=== PATIENT | female | born 1975 | race Caucasian/White ===

== ENCOUNTER 2016-06-11 19:50 | Inpatient (IN) | payer MEDICARE ==
[~2016-06-11] VITALS: Ht 165.1 cm; Wt 99.8 kg
[~2016-06-11 19:50] MED LIST: ACHD5005 PO; AMIT10TA6 PO; AMOX-358 PO; ATOR40TA PO; BACL10TA PO; CEPH500C PO; CLCX100C PO; CLON0.5T3 PO; DOXY100C2 PO; DULO60CA6 PO; ESTR0.455 PO; FLUC100T PO; GABA-488 PO; HYDR-2890 PO; HYDR-3720 PO; LEVO500T2 PO; LEVO500T69 PO; METH4TAB PO; MILN50TA6 PO; NAPR-243 PO; NAPR-689 PO; NF-ESOM40C PO; NITR-65 PO; NITR100C44 PO; ONDA8TAB13 PO; ONDA8TAB9 PO; OXYC-465 PO; OXYC30TA76 PO; PANT40TA PO; PHEN-640 PO; PHEN200T27 PO; PHEN37.582; POLY119P PO; PREG75CA PO; TIZA4TAB3 PO; TOPI100T PO; TRAM50TA2 PO; TRM50T PO; ZLP10T PO; [UNRECOGNIZED DRUG - CODE] PO
--- OUTSIDE RECORDS SUMMARY | 2016-06-11 19:56 | XMS REPORT | Continuity of Care Document ---
Author Author [facility] Organization [facility] Address Unknown Phone Unavailable Care Team Providers Care Currency Counter Name Role Phone William Mayo PCP [phone] Source Comments Some departments are not documenting in the electronic medical record. If you do not see the information that you expected, contact Release of Information in the Health Information Management department at [phone] for further assistance in locating additional records.[facility] Active Allergies and Adverse Reactions Allergen Noted Date Severity Reactions Comments Adhesive 07/20/2013 RASH Atarax 07/20/2013 UNKNOWN Morphine 07/20/2013 UNKNOWN Nucynta 08/03/2013 RASH, SEE COMMENTS rash of the arms and swelling of the lips Sulfa (Sulfonamide 10/11/2009 High EDEMA Lip swelling Antibiotics) Current Medications Prescription Sig. Disp. Refills Start End Date Status Date topiramate (TOPAMAX) 100 Take 100 mg by mouth Active mg tablet Twice Daily. duloxetine DR (CYMBALTA) Take 60 mg by mouth Twice Active 60 mg capsule Daily. esomeprazole DR,+, Take 40 mg by mouth Every Active (NEXIUM) 40 mg capsule Morning. naproxen (NAPROSYN) 500 Take 500 mg by mouth Active mg tablet twice daily with meals. clonazePAM (KLONOPIN) 0.5 Take 0.5 mg by mouth Active mg tablet daily as needed. rarely terbinafine (LAMISIL) 250 Take 250 mg by mouth Active mg tablet daily. fentaNYL (DURAGESIC) 25 Apply 1 Patch to top of Active mcg/hr patch skin as directed every 72 hours oxyCODONE-acetaminophen Take 1 Tab by mouth every Active (PERCOCET; ENDOCET) 4 hours as needed 10-325 mg tablet Esterified Estrogens Take 0.5 Tabs by mouth Active (MENEST) 1.25 mg tab daily. tiZANidine (ZANAFLEX) 4 Take 4 mg by mouth three Active mg tablet times daily. ibuprofen (MOTRIN) 800 mg 1 Tab every 8 hours as 90 Tab 1 01/11/20 Active tablet needed for Pain. 16 gabapentin (NEURONTIN) TAKE ONE TABLET BY MOUTH 90 Tab 5 04/24/19 Active 600 mg tablet THREE TIMES A DAY FOR 17 NEUROPATHIC PAIN Active Problems Problem Noted Date Tinea corporis 08/03/2013 Hypertension 07/20/2013 Obesity 07/20/2013 Fibromyalgia 07/20/2013 Right leg swelling 07/20/2013 Overview: Rt. buttock and ovfrret-aalquoqq-hgfiht thigh Right leg pain 07/20/2013 Overview: Rt. 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 Memory loss 07/20/2013 Most Recent Encounters Date Type Specialty Providers Description 04/24/2016 Refill Anesthesia Pain Liliya Montelongo APRN Social History Tobacco Use Types Packs/Day Years Used Date Current Every Day Smoker Cigarettes 1 10 Smokeless Tobacco: Never Used Tobacco Cessation: Ready to Quit: No Comments: Alcohol Use Drinks/Week oz/Week Comments Yes 0.0 monthly Last Filed Vital Signs Vital Sign Reading Time Taken Blood Pressure 133/90 10/02/2015 1:18 PM CDT Pulse 92 10/02/2015 1:18 PM CDT Temperature 36.7 C (98.1 F) 07/20/2015 10:59 AM CDT Respiratory Rate 16 10/02/2015 1:18 PM CDT Height 1.626 m (5' 4") 10/02/2015 1:18 PM CDT Weight 105.235 kg (232 lb) 10/02/2015 1:18 PM CDT Body Mass Index 39.8 10/02/2015 1:18 PM CDT Oxygen Saturation 95% 10/02/2015 1:18 PM CDT Plan of Care Health Maintenance Due Date Last Done Comments Physical (Comprehensive) 11/15/1982 Exam Pertussis Vaccine 11/15/1986 Tetanus Vaccine 11/15/1992 Cervical Cancer Screening 11/15/1996 Breast Cancer Screening 2015 Influenza Vaccine 12/13/2015 Results from Last 3 Months Not on file
[2016-06-11] MEDS ORDERED: VANCOMYCIN IV ADD-VANTAGE 1,000 MG in SODIUM CHLORIDE (ADD-VANTAGE) 250 ML IV ONE (20:00)
[2016-06-11] MEDS ORDERED: NAPR500T3 PO (20:03)
[2016-06-11] MEDS ORDERED: ESOM40CA52 PO (20:03)
--- NOTE | 2016-06-11 20:12 | ED Integumentary General ---
General Chief Complaint: Skin/Wound Problems Stated Complaint: INFECTION IN FACE Nursing Triage Note: MULTIPLE OPEN WOUNDS TO FACE, RIGHT LOWER LIP SWELLING Source: patient Exam Limitations: no limitations History of Present Illness Time seen by provider: 20:10 Initial Comments To ER with right lower jaw are redness and swelling since earlier this morning. She denies fevers. Primary care is Dr. Mayo. Timing/Duration: this morning Severity: moderate Possible Cause: no cause identified Allergies and Home Medications Allergies Coded Allergies: Sulfa (Sulfonamide Antibiotics) (Unverified Allergy, Unknown, 12/05/14) hydroxyzine (Unverified Adverse Reaction, Intermediate, 10/10/13) morphine (Unverified Adverse Reaction, Intermediate, 10/10/13) Home Medications Clonazepam 0.5 Mg Tablet #90 0.5 MG PO HS (Reported) Duloxetine Hcl 60 Mg Capsule.dr 60 MG PO BID (Reported) Esomeprazole Magnesium 40 Mg Capsule.dr #30 1 CAP PO UD (Reported) Estrogens,Esterified 1.25 Mg Tablet #15 0.5 TAB PO DAILY (Reported) Gabapentin 300 Mg Capsule 600 MG PO BID (Reported) Naproxen 500 Mg Tablet #60 1 TAB PO BID (Reported) Ondansetron 8 Mg Tab.rapdis #10 8 MG PO Q6H PRN PRN NAUSEA Prescribed by: JUAN MIGUEL LAGUNA on 07/07/151947 Oxycodone Hcl 30 Mg Tab.sr.12h #60 1 TAB PO BID (Reported) Oxycodone Hcl/Acetaminophen 1 Each Tablet 1 EACH PO PRN PRN PRN PAIN (Reported) Pantoprazole Sodium 40 Mg Tablet.dr #30 1 TAB PO DAILY (Reported) Tizanidine HCl 4 Mg Tablet 8 MG PO HS (Reported) Topiramate 100 Mg Tab 100 MG PO BID (Reported) Constitutional: see HPI EENTM: see HPI Respiratory: no symptoms reported Cardiovascular: no symptoms reported Genitourinary: no symptoms reported Musculoskeletal: no symptoms reported Skin: see HPI Psychiatric/Neurological: No Symptoms Reported Endocrine: No Symptoms Reported Past Omhmqsp-Kxrvet-Rlbvgx Hx Patient Social History Alcohol Use: Denies Use Recreational Drug Use: No Smoking Status: Current Everyday Smoker 2nd Hand Smoke Exposure: Yes Recent Foreign Travel: No Contact w/Someone Who Travel: No Recent Infectious Disease Expo: No Recent Hopitalizations: No Immunizations Up To Date Tetanus Booster (TDap): Less than 5yrs Date of Influenza Vaccine: Feb 22, 2014 Seasonal Allergies Seasonal Allergies: No Surgeries HX Surgeries: Yes (ERCP, COLONOSCOPY, LIPOMA,OVARIAN CYST REMOVAL X 5, LEFT HAND, RIGHT KNEE,) Surgeries: Appendectomy, Gallbladder, Hysterectomy, Orthopedic Respiratory Hx Respiratory Disorders: No Cardiovascular Hx Cardiac Disorders: Yes Cardiac Disorders: High Cholesterol Neurological Hx Neurological Disorders: Yes Neurological Disorders: Concussion, Neuropathy, 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 Injury Reproductive System : No Hx Reproductive Disorders: Yes Female Reproductive Disorders: Ovarian Cyst [employer] History: Hysterectomy Genitourinary Hx Genitourinary Disorders: Yes Genitourinary Disorders: UTI-Chronic Gastrointestinal Hx Gastrointestinal Disorders: Yes Gastrointestinal Disorders: Gastroesophageal Reflux Musculoskeletal Hx Musculoskeletal Disorders: Yes (CHRONIC RIGHT LEG SCIATICA, CHRONIC RIGHT KNEE PAIN) Musculoskeletal Disorders: Degenerate Disk Disease, Arthritis, Fibromyalgia, Rheumatoid Arthritis, Chronic Back Pain Endocrine Hx Endocrine Disorders: Yes (OBESITY) HEENT HX ENT Disorders: No Cancer Hx Cancer: Yes Cancer: Cervical Psychosocial Hx Psychiatric Problems: Yes Behavioral Health Disorders: Anxiety, Depression Integumentary HX Skin/Integumentary Disorder: No Blood Transfusions Hx Blood Disorders: No Adverse Reaction to a Blood Tr: No Family Medical History Significant Family History: No Pertinent Family Hx Physical Exam Vital Signs Vital Sign - Last 12Hours 06/11/16 20:04 Temp 98.8 Pulse 104 Resp 18 B/P 118/85 Pulse Ox 98 O2 Delivery Room Air Capillary Refill : Less Than 3 Seconds General Appearance: WD/WN no apparent distress HEENT: PERRL/EOMI normal ENT inspection other (there is significant swelling of the mandible on the right side including half of the bottom lip. There is no fluctuance or buccal abscess palpable. She does have an area to the exterior surface of the face that appears to be impetigo as well as multiple sores on her face) Neck: non-tender full range of motion Cardiovascular: regular rate, rhythm no murmur Respiratory: no respiratory distress no accessory muscle use Gastrointestinal: non tender soft Neurologic/Psychiatric: alert normal mood/affect oriented x 3 Skin: normal color warm/dry other (multiple sores all over her face which she states just started yesterday (I do not believe this to be true)) Skin Problem Location: face Skin Problem Character: erythema, other (There is no drainage. There is an area that is indurated and with honey-colored crusting to the right mandible.) Progress/Results/Core Measures Results/Orders Lab Results Laboratory Tests Test 06/11/16 20:05 06/11/16 20:10 Range/Units Ur Tricyclic Antidepressants Screen NEGATIVE NEGATIVE Urine Amphetamines Screen POSITIVE H NEGATIVE Urine Bacteria LARGE H /HPF Urine Barbiturates Screen NEGATIVE NEGATIVE Urine Benzodiazepines Screen POSITIVE H NEGATIVE Urine Bilirubin 2+ H NEGATIVE Urine Cannabinoids Screen NEGATIVE NEGATIVE Urine Casts NONE /LPF Urine Clarity SLIGHTLY CLOUDY Urine Cocaine Screen NEGATIVE NEGATIVE Urine Color AMINAH H Urine Crystals NONE /LPF Urine Culture Indicated YES Urine Glucose (UA) NEGATIVE NEGATIVE Urine Ketones 1+ H NEGATIVE Urine Leukocyte Esterase 2+ H NEGATIVE Urine Methadone Screen NEGATIVE NEGATIVE Urine Methamphetamines Screen POSITIVE H NEGATIVE Urine Mucus LARGE H /LPF Urine Nitrite POSITIVE H NEGATIVE Urine Opiates Screen NEGATIVE NEGATIVE Urine Oxycodone Screen NEGATIVE NEGATIVE Urine Phencyclidine Screen NEGATIVE NEGATIVE Urine Propoxyphene Screen NEGATIVE NEGATIVE Urine Protein 1+ H NEGATIVE Urine RBC 0-2 /HPF Urine RBC (Auto) 1+ H NEGATIVE Urine Specific Calvin 1.020 1.016-1.022 Urine Squamous Epithelial Cells 25-50 H /HPF Urine Urobilinogen 4 H NORMAL MG/DL Urine WBC 10-25 H /HPF Urine pH 6 5-9 Alanine Aminotransferase (ALT/SGPT) 10 0-55 U/L Albumin 3.8 3.2-4.5 G/DL Alkaline Phosphatase 79 40-136 U/L Anion Gap 12 5-14 MMOL/L Aspartate Amino Transf (AST/SGOT) 7 5-34 U/L BUN/Creatinine Ratio 14 Band Neutrophils 2 % Basophils # (Auto) 0.0 0.0-0.1 10^3/uL Basophils % (Manual) 1 % Basophils (%) (Auto) 0 0-10 % Blood Morphology Comment NORMAL Blood Urea Nitrogen 12 7-18 MG/DL Calcium Level 9.1 8.5-10.1 MG/DL Carbon Dioxide Level 17 L 21-32 MMOL/L Chloride Level 110 H 98-107 MMOL/L Creatinine 0.83 0.60-1.30 MG/DL Eosinophils # (Auto) 0.2 0.0-0.3 10^3/uL Eosinophils % (Manual) 0 % Eosinophils (%) (Auto) 1 0-10 % Estimat Glomerular Filtration Rate > 60 Glucose Level 186 H 70-105 MG/DL Hematocrit 43 35-52 % Hemoglobin 14.7 11.5-16.0 G/DL Lactic Acid Level 2.1 *H 0.5-2.0 MMOL/L Lymphocytes # (Auto) 4.9 H 1.0-4.0 X 10^3 Lymphocytes % (Manual) 40 % Lymphocytes (%) (Auto) 30 12-44 % Mean Corpuscular Hemoglobin 30 25-34 PG Mean Corpuscular Hemoglobin Concent 34 32-36 G/DL Mean Corpuscular Volume 89 80-99 FL Mean Platelet Volume 10.1 7.4-10.4 FL Monocytes # (Auto) 0.8 0.0-1.0 X 10^3 Monocytes % (Manual) 2 % Monocytes (%) (Auto) 5 0-12 % Neutrophils # (Auto) 10.1 H 1.8-7.8 X 10^3 Neutrophils % (Manual) 55 % Neutrophils (%) (Auto) 63 42-75 % Platelet Count 270 130-400 10^3/uL Potassium Level 3.8 3.6-5.0 MMOL/L Red Blood Count 4.89 4.35-5.85 10^6/uL Red Cell Distribution Width 13.6 10.0-14.5 % Sodium Level 139 135-145 MMOL/L Total Bilirubin 0.4 0.1-1.0 MG/DL Total Protein 6.8 6.4-8.2 G/DL White Blood Count 16.0 H 4.3-11.0 10^3/uL My Orders Orders-LEEANNE TUBBS CYLINDER LOADER Cbc With Automated Diff (06/11/16 19:59) Comprehensive Metabolic Panel (06/11/16 19:59) Blood Culture (06/11/16 19:59) Saline Lock/Iv-Start (06/11/16 19:59) Ua Culture If Indicated (06/11/16 19:59) Drug Screen Stat (Urine) (06/11/16 19:59) Lactic Acid Analyzer (06/11/16 19:59) Vancomycin Iv Add-[place] (Vancomycin Iv (06/11/16 20:00) Ct Maxillofacial W (06/11/16 19:59) Manual Differential (06/11/16 20:10) Urine Culture (06/11/16 20:05) Ns Iv 1000 Ml (Sodium Chloride 0.9%) (06/11/16 20:45) Iohexol Injection (Omnipaque 350 Mg/Ml 1 (06/11/16 20:45) Ns (Ivpb) (Sodium Chloride 0.9% Ivpb Bag (06/11/16 20:45) Medications Given in ED Current Medications Medications Dose Ordered Sig/Michela Route Start Time Stop Time Status Last Admin Dose Admin Iohexol 100 ml ONCE ONCE IV 06/11/16 20:45 06/11/16 20:46 DC 06/11/16 20:47 100 ML Sodium Chloride 100 ml ONCE ONCE IV 06/11/16 20:45 06/11/16 20:46 DC 06/11/16 20:47 100 ML Vancomycin HCl/ Sodium Chloride 250 ml @ 250 mls/hr ONCE ONCE IV 06/11/16 20:00 06/11/16 20:59 DC 06/11/16 21:00 250 MLS/HR Vital Signs/I&O Vital Sign - Last 12Hours 06/11/16 20:04 Temp 98.8 Pulse 104 Resp 18 B/P 118/85 Pulse Ox 98 O2 Delivery Room Air Blood Pressure Mean: 96 Departure Communication Time/Spoke to Admitting Phy: 21:17 Communication I discussed the case with Dr. Poe. We will admit. Progress Notes 2116-I discussed the plan of care with the patient. She agrees to be admitted. She states that she has been tapering off of her fentanyl and Percocet 10/325 ) over the past month she has been off of them she states) using coloring books and distraction methods now that she has a spinal stimulator. I also discussed her methamphetamine use with her given the sores and positive drug screen. She assures me that she does not use methamphetamine, but her ranitidine causes a false positive. Impression Impression: Primary Impression: Facial cellulitis Additional Impressions: Sepsis Urinary tract infection Methamphetamine use Disposition: ADMITTED INPATIENT Condition: Stable Decision to Admit Reason: Admit from ER (General) Decision to Admit/Date: Jun 11, 2016 Time/Decision to Admit Time: 20:43 Departure-Patient Inst. Referrals: CLAUDY MAYO MD (PCP/Family) Primary Care Physician LEEANNE TUBBS APRN Jun 11, 2016 20:12
[2016-06-11 20:26] LABS: KETONES,URINE 1+ (NEGATIVE); LEUKOCYTE ESTERASE ,URINE 2+ (NEGATIVE); NITRITE,URINE POSITIVE (NEGATIVE); PH,URINE 6 (5-9); PROTEIN,URINE 1+ (NEGATIVE); UROBILINOGEN,URINE 4 MG/DL (NORMAL)
[2016-06-11 20:26] LABS: BASOPHILS % (AUTO) 0 % (0-10); EOSINOPHILS # (AUTO) 0.2 10^3/uL (0.0-0.3); EOSINOPHILS % (AUTO) 1 % (0-10); LYMPHOCYTES # (AUTO) 4.9 X 10^3 (1.0-4.0); LYMPHOCYTES % (AUTO) 30 % (12-44); MEAN CORPUSCULAR HEMOGLOBIN 30 PG (25-34); MEAN CORPUSCULAR HGB CONC 34 G/DL (32-36); MEAN CORPUSCULAR VOLUME 89 FL (80-99); MEAN PLATELET VOLUME 10.1 FL (7.4-10.4); MONOCYTES # (AUTO) 0.8 X 10^3 (0.0-1.0); MONOCYTES % (AUTO) 5 % (0-12); NEUTROPHILS # (AUTO) 10.1 X 10^3 (1.8-7.8); NEUTROPHILS % (AUTO) 63 % (42-75); PLATELET COUNT 270 10^3/uL (130-400); RED BLOOD COUNT 4.89 10^6/uL (4.35-5.85); RED CELL DISTRIBUTION WIDTH 13.6 % (10.0-14.5)
[2016-06-11 20:35] LABS: SQUAMOUS EPITHELIAL CELL,UR 25-50 /HPF
[2016-06-11 20:41] LABS: BAND NEUTROPHILS 2 %; BASOPHILS % (MANUAL) 1 %; EOSINOPHILS % (MANUAL) 0 %; LYMPHOCYTES % (MANUAL) 40 %; NEUTROPHILS % (MANUAL) 55 %
[2016-06-11] MEDS ORDERED: NS 100 ML (IVPB) BAG IV ONE (20:45)
[2016-06-11] MEDS ORDERED: NS IV 1000 ML 1,000 ML IV SCH (20:45)
[2016-06-11] MEDS ORDERED: IOHEXOL 350 MG/ML 100 ML (OMNIPAQUE 350) VIAL IV ONE (20:45)
[2016-06-11 20:57] LABS: ALANINE AMINOTRANSFERASE 10 U/L (0-55); ALBUMIN 3.8 G/DL (3.2-4.5); ANION GAP 12 MMOL/L (5-14); ASPARTATE AMINO TRANSFERASE 7 U/L (5-34); BILIRUBIN,TOTAL 0.4 MG/DL (0.1-1.0); BLOOD UREA NITROGEN 12 MG/DL (7-18); BUN/CREATININE RATIO 14; CALCIUM 9.1 MG/DL (8.5-10.1); CARBON DIOXIDE 17 MMOL/L (21-32); CHLORIDE 110 MMOL/L (98-107); CREATININE SERUM 0.83 MG/DL (0.60-1.30); GFR ESTIMATED > 60; GLUCOSE 186 MG/DL (70-105); POTASSIUM 3.8 MMOL/L (3.6-5.0); SODIUM 139 MMOL/L (135-145); TOTAL PROTEIN 6.8 G/DL (6.4-8.2)
--- NOTE | 2016-06-11 21:08 | Diagnostic Imaging Report ---
PROCEDURE: CT maxillofacial with contrast. TECHNIQUE: After intravenous administration of contrast, axial images were obtained through the face and reformatted into coronal and sagittal planes. INDICATION: 40-year-old female presents with face swelling, right side of mandible, with pustules on the entire face. FINDINGS: The mandible and maxilla are intact. Nasal septum is midline. Sinuses appear well pneumatized. Orbits, including both globes, retro-orbital, extraconal, conal and intraconal spaces are normal. The zygomatic arches are symmetric. The pterygoid plates are normal. The mastoid air cells appear well pneumatized. Beam hardening artifact from the patient's large body habitus does limit assessment. There is cervical lymphadenopathy. There is diffuse stranding in the right face and right cheek subcutaneous soft tissues but no discrete abscess or phlegmon is seen. The parotid gland and submandibular gland show normal attenuation. IMPRESSION: 1. Unremarkable CT facial bones. 2. Probable cellulitis of the right face and cheek with no discrete abscess seen at this time. Dictated by: Dictated on workstation # [id number]
[2016-06-11 21:40] VITALS: BP 105/72
[2016-06-11] MEDS ORDERED: ACETAMINOPHEN 325 MG TABLET/CAPLET (TYLENOL) PO PRN (23:15)
[2016-06-11] MEDS ORDERED: PIPERACILLIN/TAZOBACTAM 4.5 GM/NS100 ML IVPB IV ONE ×2 (23:15)
[2016-06-11] MEDS: NS IV 1000 ML 1,000 ML IV SCH (23:15)
[2016-06-12 00:30] VITALS: BP 118/67
[2016-06-12] MEDS ORDERED: ESTR1TAB24 PO (02:44)
[2016-06-12] MEDS ORDERED: CLON0.5T25 PO (02:45)
[2016-06-12] MEDS ORDERED: ASPI-992 PO (02:51)
[2016-06-12] MEDS ORDERED: RANI-515 PO (02:51)
[2016-06-12] MEDS ORDERED: DIPH25CA6 PO (02:51)
[2016-06-12] MEDS ORDERED: MIRT15TA6 PO (02:51)
[2016-06-12] MEDS: PIPERACILLIN/TAZOBACTAM 4.5 GM/NS100 ML IVPB IV SCH ×6 (04:18→20:47)
[2016-06-12 04:42] LABS: BASOPHILS % (AUTO) 0 % (0-10); EOSINOPHILS # (AUTO) 0.3 10^3/uL (0.0-0.3); EOSINOPHILS % (AUTO) 2 % (0-10); LYMPHOCYTES # (AUTO) 5.3 X 10^3 (1.0-4.0); LYMPHOCYTES % (AUTO) 38 % (12-44); MEAN CORPUSCULAR HEMOGLOBIN 30 PG (25-34); MEAN CORPUSCULAR HGB CONC 34 G/DL (32-36); MEAN CORPUSCULAR VOLUME 90 FL (80-99); MEAN PLATELET VOLUME 10.3 FL (7.4-10.4); MONOCYTES % (AUTO) 8 % (0-12); NEUTROPHILS # (AUTO) 7.1 X 10^3 (1.8-7.8); NEUTROPHILS % (AUTO) 52 % (42-75); PLATELET COUNT 224 10^3/uL (130-400); RED BLOOD COUNT 4.17 10^6/uL (4.35-5.85); RED CELL DISTRIBUTION WIDTH 13.6 % (10.0-14.5); WHITE BLOOD COUNT 13.8 10^3/uL (4.3-11.0)
[2016-06-12] MEDS: NS IV 1000 ML 1,000 ML IV SCH ×3 (06:30→18:00)
[2016-06-12] MEDS ORDERED: FLU TRIvalent (5 YOA+) 2016-17 (AFLURIA) 0.5 ML IM ONE (07:00)
[2016-06-12 08:15] VITALS: BP 124/86
[2016-06-12] MEDS ORDERED: CATHETER FLUSH 10 ML SYR IV PRN (08:30)
[2016-06-12] MEDS ORDERED: VANCOMYCIN 1 GM/NS 250 ML IVPB IV SCH ×2 (09:00)
[2016-06-12] MEDS ORDERED: GABA600T2 PO (09:01)
[2016-06-12] MEDS ORDERED: CLON0.5T3 PO (09:01)
[2016-06-12] MEDS: VANCOMYCIN INJECTION 1,500 MG in NS IV 500 ML 500 ML IV SCH ×2 (09:26→20:47)
[2016-06-12] MEDS: HYDROcodone/APAP 10 MG/325 MG (LORTAB) TAB PO PRN ×2 (09:26→18:44)
[2016-06-12 10:32] LABS: BILIRUBIN,URINE 2+ (NEGATIVE)
--- NOTE | 2016-06-12 10:46 | History & Physical-Hospitalist ---
HPI History of Present Illness: HPI/Chief Complaint CC: Right facial swelling HPI: This is a 40yoWF pt of Dr. Mayo'michelle that presented to ER with right facial swelling. CT scan revealed no abscess formation but severe cellulitis. Pt is on chronic pain meds and denies any current pain. Pt has been placed on Vanc and Zosyn empirically but she reports that she feels a knot on her right lower gum so will speak with Dr. Aguilar to evaluate the need for I&D. drip box tender: RN states that pt is stable for move to 4th floor. Patient Interview: Pt states that her pain is under control, but is increased if she speaks too much. Physical exam stable. Pt states that her swelling is reduced, but pt states that the pressure increases if she lays on her side. Pt states that the sores on her face appeared with pts other symptoms. Pt denies using methamphetamine. Dr. Wallace informs pt that it was found in pt' s bloodwork, and pt continues to deny meth use, stating that lab findings are likely due to Zantac. Scribed by Hood Galarza under the direct supervision of Dr. Wallace. Source: patient Exam Limitations: no limitations Date Seen 06/12/16 Attending Physician Melissa Wallace Douglas K MD Referring Physician Date of Admission Jun 11, 2016 at 21:22 Home Medications & Allergies Home Medications Reviewed patient Home Medication Reconciliation Form Allergies Coded Allergies: Sulfa (Sulfonamide Antibiotics) (Unverified Allergy, Unknown, 12/05/14) hydroxyzine (Unverified Adverse Reaction, Intermediate, 10/10/13) morphine (Unverified Adverse Reaction, Intermediate, 10/10/13) Past Shjvyli-Elyyjs-Ibvfir Hx Patient Social History Marrital Status: single Employed/Student: unemployed Alcohol Use: Denies Use Recreational Drug Use: No Smoking Status: Current Everyday Smoker 2nd Hand Smoke Exposure: Yes Physical Abuse Screen: No Sexual Abuse: No Recent Foreign Travel: No Contact w/other who traveled: No Recent Hopitalizations: No Recent Infectious Disease Expo: No Immunizations Up To Date Tetanus Booster (TDap): Less than 5yrs Date of Influenza Vaccine: Feb 22, 2014 Seasonal Allergies Seasonal Allergies: No Surgeries HX Surgeries: Yes (ERCP, COLONOSCOPY, LIPOMA,OVARIAN CYST REMOVAL X 5, LEFT HAND, RIGHT KNEE,) Surgeries: Appendectomy, Gallbladder, Hysterectomy, Orthopedic Respiratory Hx Respiratory Disorders: No Cardiovascular Hx Cardiovascular Disorders: Yes Cardiac Disorders: High Cholesterol Neurological Hx Neurological Disorders: Yes Neurological Disorders: Concussion, Neuropathy, 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 Injury Reproductive System : No Hx Reproductive Disorders: Yes Female Reproductive Disorders: Ovarian Cyst Genitourinary Hx Genitourinary Disorders: Yes Genitourinary Disorders: UTI-Chronic Gastrointestinal Hx Gastrointestinal Disorders: Yes Gastrointestinal Disorders: Gastroesophageal Reflux Musculoskeletal Hx Musculoskeletal Disorders: Yes (CHRONIC RIGHT LEG SCIATICA, CHRONIC RIGHT KNEE PAIN) Musculoskeletal Disorders: Degenerate Disk Disease, Arthritis, Fibromyalgia, Rheumatoid Arthritis, Chronic Back Pain Endocrine Hx Endocrine Disorders: Yes (OBESITY) HEENT HX ENT Disorders: No Cancer Hx Cancer: Yes Cancer: Cervical Psychosocial Hx Psychiatric Problems: Yes Behavioral Health Disorders: Anxiety, Depression Integumentary HX Skin/Integumentary Disorder: No Blood Transfusions Hx Blood Disorders: No Adverse Reaction to a Blood Tr: No Family Medical History Significant Family History: No Pertinent Family Hx Family Hx: Alcoholism 19 FATHER Asthma 19 FATHER Completed stroke 19 FATHER 19 MOTHER Diabetes mellitus 19 MOTHER FH: emphysema 19 FATHER Hypertension 19 FATHER Myocardial infarction 19 FATHER (STENTS) Review of Systems Constitutional: see HPI fever malaise weakness EENTM: mouth pain mouth swelling Respiratory: no symptoms reported Cardiovascular: no symptoms reported Gastrointestinal: no symptoms reported Genitourinary: no symptoms reported Musculoskeletal: no symptoms reported Skin: see HPI Psychiatric/Neurological: No Symptoms Reported All Other Systems Reviewed Negative Unless Noted: Yes Physical Exam Physical Exam Vital Signs Vital Sign - Last 12Hours 06/11/16 20:04 Temp 98.8 Pulse 104 Resp 18 B/P 118/85 Pulse Ox 98 O2 Delivery Room Air Capillary Refill : Less Than 3 Seconds General Appearance: No Apparent Distress WD/WN Chronically ill Other ( appearing older than stated age, multiple scabs on face) Eyes: Bilateral Eye Normal Inspection, Bilateral Eye PERRL HEENT: PERRL/EOMI Normal ENT Inspection Pharynx Normal Neck: Full Range of Motion Normal Inspection Non Tender Supple Carotid Bruit Respiratory: Chest Non Tender Lungs Clear Normal Breath Sounds No Accessory Muscle Use No Respiratory Distress Cardiovascular: Regular Rate, Rhythm No Edema No Gallop No JVD No Murmur Normal Peripheral Pulses Gastrointestinal: Normal Bowel Sounds No Organomegaly No Pulsatile Mass Non Tender Soft Back: Normal Inspection No CVA Tenderness No Vertebral Tenderness Extremity: Normal Capillary Refill Normal Inspection Normal Range of Motion Non Tender No Calf Tenderness No Pedal Edema Neurologic/Psychiatric: Alert Oriented x3 No Motor/Sensory Deficits Normal Mood/Affect Skin: Normal Color Warm/Dry Other (right lower jaw with less edema and erythema and noted slight fluctuance in between mandible and gumline) Lymphatic: No Adenopathy Results Results/Procedures Lab Laboratory Tests 06/11/16 20:10 06/12/16 03:59 Assessment/Plan Admission Diagnosis Assessment: Mandibular cellulitis vs abscess Active meth user but denies UDS results Leukocytosis Assessment and Plan Plan: Consult Dr. Jeff Sutton and Rupesh empirically Move to 4th floor Copy Copies To 1: CLAUDY MAYO MD Clinical Quality Measures DVT/VTE Risk/Contraindication: Risk Factor Score Per Nursin RFS Level Per Nursing on Admit: 3=High MELISSA WALLACE DO Jun 12, 2016 10:46
[2016-06-12 12:34] VITALS: BP 133/81
[2016-06-12 16:00] VITALS: BP 160/106
[2016-06-13] MEDS: HYDROcodone/APAP 10 MG/325 MG (LORTAB) TAB PO PRN ×4 (00:51→21:43)
[2016-06-13] MEDS: fentaNYL INJECTION 100 MCG/2 ML AMP IV PRN ×3 (00:51→21:43)
[2016-06-13] MEDS: PIPERACILLIN/TAZOBACTAM 4.5 GM/NS100 ML IVPB IV SCH ×6 (04:40→21:43)
[2016-06-13] MEDS ORDERED: TROUGH ORDER-PHARMACY XX NR (07:00)
[2016-06-13 07:14] LABS: BASOPHILS % (AUTO) 0 % (0-10); EOSINOPHILS # (AUTO) 0.4 10^3/uL (0.0-0.3); EOSINOPHILS % (AUTO) 3 % (0-10); LYMPHOCYTES # (AUTO) 4.9 X 10^3 (1.0-4.0); LYMPHOCYTES % (AUTO) 41 % (12-44); MEAN CORPUSCULAR HEMOGLOBIN 31 PG (25-34); MEAN CORPUSCULAR HGB CONC 34 G/DL (32-36); MEAN CORPUSCULAR VOLUME 90 FL (80-99); MEAN PLATELET VOLUME 9.7 FL (7.4-10.4); MONOCYTES # (AUTO) 0.8 X 10^3 (0.0-1.0); MONOCYTES % (AUTO) 7 % (0-12); NEUTROPHILS # (AUTO) 5.8 X 10^3 (1.8-7.8); NEUTROPHILS % (AUTO) 49 % (42-75); PLATELET COUNT 221 10^3/uL (130-400); RED BLOOD COUNT 4.13 10^6/uL (4.35-5.85); RED CELL DISTRIBUTION WIDTH 13.4 % (10.0-14.5); WHITE BLOOD COUNT 11.9 10^3/uL (4.3-11.0)
[2016-06-13] MEDS: NS IV 1000 ML 1,000 ML IV SCH (07:15)
[2016-06-13 07:39] LABS: ALANINE AMINOTRANSFERASE 9 U/L (0-55); ALBUMIN 3.1 G/DL (3.2-4.5); ANION GAP 9 MMOL/L (5-14); ASPARTATE AMINO TRANSFERASE 7 U/L (5-34); BILIRUBIN,TOTAL 0.3 MG/DL (0.1-1.0); BLOOD UREA NITROGEN 6 MG/DL (7-18); BUN/CREATININE RATIO 9; CALCIUM 8.3 MG/DL (8.5-10.1); CARBON DIOXIDE 20 MMOL/L (21-32); CHLORIDE 114 MMOL/L (98-107); CREATININE SERUM 0.64 MG/DL (0.60-1.30); GFR ESTIMATED > 60; GLUCOSE 103 MG/DL (70-105); POTASSIUM 3.9 MMOL/L (3.6-5.0); SODIUM 143 MMOL/L (135-145); TOTAL PROTEIN 5.7 G/DL (6.4-8.2)
[2016-06-13] MEDS: VANCOMYCIN INJECTION 1,500 MG in NS IV 500 ML 500 ML IV SCH (08:10)
[2016-06-13 08:40] VITALS: BP 135/91
--- NOTE | 2016-06-13 10:22 | Progress Note-Hospitalist ---
Progress Note HPI/CC on Admission CC: Right facial swelling HPI: This is a 40yoWF pt of Dr. Mayo'michelle that presented to ER with right facial swelling. CT scan revealed no abscess formation but severe cellulitis. Pt is on chronic pain meds and denies any current pain. Pt has been placed on Vanc and Zosyn empirically but she reports that she feels a knot on her right lower gum so will speak with Dr. Aguilar to evaluate the need for I&D. safety instructor: RN states that pt is stable for move to 4th floor. Patient Interview: Pt states that her pain is under control, but is increased if she speaks too much. Physical exam stable. Pt states that her swelling is reduced, but pt states that the pressure increases if she lays on her side. Pt states that the sores on her face appeared with pts other symptoms. Pt denies using methamphetamine. Dr. Wallace informs pt that it was found in pt' s bloodwork, and pt continues to deny meth use, stating that lab findings are likely due to Zantac. Scribed by Hood Galarza under the direct supervision of Dr. Wallace. Progress Notes/Assess & Plan Date Seen 06/13/16 Admission Dx/Process Assessment: Mandibular cellulitis vs abscess Active meth user but denies UDS results Leukocytosis Diagonsis/Assessment & Plan safety instructor: Dr. Aguilar saw pt yesterday evening, and there is nothing that can be done at this time due to swelling. Pt likely unable to DC today. Dr. Aguilar called me at 11 o'clock and updated me on is planned to evaluate further for need of I&D but will be available as needed Patient Interview: Pt states that she feels more swollen today. Dr. Wallace informs pt that the swelling is condensing, and is not as widespread. Dr. Wallace informs pt that bloodwork is improved, and that pt may be able to DC over the weekend. Pt uses [facility] pharmacy. Pt states that her pain is manageable. Physical exam stable. Pt states that she is having regular BMs. Assessment: Severe mandible cellulitis versus future formation of abscess consulted Dr. Aguilar no procedure planned as of yet FN phentermine use but continues to deny use Multiple superficial skin lesions on face consistent with meth use Chronic lisp Leukocytosis Plan: DC Vanc and maintain Zosyn Check labs in AM DC fluids Move to 4th floor if room available Scribed by Hood Galarza under the direct supervision of Dr. Wallace. NANDA WALLACE DO Jun 13, 2016 10:22
[2016-06-13 16:00] VITALS: BP 141/77
[2016-06-13] MEDS ORDERED: raNItidine (ZANTAC) 150 MG TAB NON-FORMULARY PO PRN (18:15)
[2016-06-13] MEDS: toPIRamate 100 MG (TOPAMAX) TAB PO SCH (21:44)
[2016-06-14] VITALS: BP 148/89
[2016-06-14] MEDS: fentaNYL INJECTION 100 MCG/2 ML AMP IV PRN ×4 (01:40→22:25)
[2016-06-14] MEDS: PIPERACILLIN/TAZOBACTAM 4.5 GM/NS100 ML IVPB IV SCH ×6 (06:33→22:18)
[2016-06-14] MEDS: HYDROcodone/APAP 10 MG/325 MG (LORTAB) TAB PO PRN ×3 (06:37→14:11)
[2016-06-14 07:35] LABS: BASOPHILS % (AUTO) 0 % (0-10); EOSINOPHILS # (AUTO) 0.4 10^3/uL (0.0-0.3); EOSINOPHILS % (AUTO) 3 % (0-10); LYMPHOCYTES # (AUTO) 4.8 X 10^3 (1.0-4.0); LYMPHOCYTES % (AUTO) 44 % (12-44); MEAN CORPUSCULAR HEMOGLOBIN 30 PG (25-34); MEAN CORPUSCULAR HGB CONC 33 G/DL (32-36); MEAN CORPUSCULAR VOLUME 90 FL (80-99); MEAN PLATELET VOLUME 9.7 FL (7.4-10.4); MONOCYTES # (AUTO) 0.7 X 10^3 (0.0-1.0); MONOCYTES % (AUTO) 6 % (0-12); NEUTROPHILS # (AUTO) 5.1 X 10^3 (1.8-7.8); NEUTROPHILS % (AUTO) 46 % (42-75); PLATELET COUNT 253 10^3/uL (130-400); RED BLOOD COUNT 4.08 10^6/uL (4.35-5.85); RED CELL DISTRIBUTION WIDTH 13.2 % (10.0-14.5); WHITE BLOOD COUNT 10.9 10^3/uL (4.3-11.0)
[2016-06-14 07:55] LABS: ALANINE AMINOTRANSFERASE 9 U/L (0-55); ANION GAP 10 MMOL/L (5-14); ASPARTATE AMINO TRANSFERASE 9 U/L (5-34); BILIRUBIN,TOTAL 0.3 MG/DL (0.1-1.0); BLOOD UREA NITROGEN 6 MG/DL (7-18); BUN/CREATININE RATIO 9; CALCIUM 8.6 MG/DL (8.5-10.1); CARBON DIOXIDE 21 MMOL/L (21-32); CHLORIDE 111 MMOL/L (98-107); CREATININE SERUM 0.65 MG/DL (0.60-1.30); GFR ESTIMATED > 60; GLUCOSE 116 MG/DL (70-105); POTASSIUM 3.8 MMOL/L (3.6-5.0); SODIUM 142 MMOL/L (135-145); TOTAL PROTEIN 5.7 G/DL (6.4-8.2)
[2016-06-14 08:00] VITALS: BP 116/78
[2016-06-14] MEDS ORDERED: clonazePAM 0.5 MG (KlonoPIN) TAB PO PRN (09:45)
[2016-06-14] MEDS: toPIRamate 100 MG (TOPAMAX) TAB PO SCH ×2 (09:49→22:20)
[2016-06-14] MEDS: FAMOTIDINE 20 MG (PEPCID) TABLET PO PRN (09:49)
[2016-06-14] MEDS: DULoxetine 30 MG (CYMBALTA) CAP PO SCH ×2 (09:58→22:19)
[2016-06-14] MEDS: ESTRADIOL 1 MG TAB (ESTRACE) PO SCH (10:00)
[2016-06-14] MEDS ORDERED: diphenhydrAMINE 25 MG TAB (BENADRYL) PO PRN (10:00)
[2016-06-14] MEDS: GABAPENTIN 600 MG (NEURONTIN) TAB PO SCH (11:33)
[2016-06-14] MEDS: NAPROXEN 250 MG (NAPROSYN) TABLET PO SCH ×2 (11:33→22:19)
--- NOTE | 2016-06-14 12:37 | Progress Note-Hospitalist ---
Standard Progress Note Progress Notes/Assess & Plan Date Seen 06/14/16 Diagnosis Assessment: Mandibular cellulitis vs abscess Active meth user but denies UDS results Leukocytosis Assess & Plan/Chief Complaint The patient is a 40-year-old white female who was admitted on 06/11 after she presented to the emergency room with a complaint of pain about her mouth and jaw. This apparently came up over 1 days time. She gave a history of the initial lesion being something appearing to be a pimple which she popped and then things got worse. She gave no previous history of boils or abscesses consistent with MRSA. She was seen by Dr. Aguilar who is an oral surgeon on staff. She states that he did not think that this arose from dental problems. She states that the swelling is going down but is still painful. Physical exam: There is an obvious reddish purple discoloration from the right side of the chin to the lower border of the right side of the mouth. This is quite swollen particularly along the vermilion border. Lungs are clear to auscultation. CV is regular without murmur. Impression: Central facial abscess 2.urinary tract infection growing Escherichia coli Plan: Continue IV antibiotics Labs Laboratory Tests 06/13/16 07:08 06/14/16 07:18 MARSHA ROSSI MD Jun 14, 2016 12:37
[2016-06-14 16:00] VITALS: BP 150/86
--- NOTE | 2016-06-14 21:45 | CONSULTATION REPORT ---
DATE OF CONSULTATION: 06/12/2016 REFERRING PHYSICIAN: Dr. Poe I was called to evaluate Ms. Fernández who is a 40-year-old essentially healthy albeit though disabled white female by Dr. Poe. She has a cellulitis in her right mental region approximately at the labial mental fold. At the present time it is certainly tender, it is erythematous, but there is no purulence or fluctuance at this point and the redness appears to be fairly diffuse. She also has numerous probably greater than 40 other little excoriations which she attributes to acne but at the present time they had an eschar scab over them. At the present time she is on intravenous antibiotics Zosyn and propicillin. We are going to maintain her in the hospital. I will follow her at this point. If the area does become fluctuant then we can drain at that point. Job ID: [id number] Dictated Date: 06/13/2016 10:53:36 Tapering Machine Operator Date: 06/14/2016 21:37:36/mikey
[2016-06-14] MEDS: MIRTAZAPINE 15 MG (REMERON) TAB PO SCH (22:19)
[2016-06-14] MEDS: clonazePAM 0.5 MG (KlonoPIN) TAB PO SCH (22:19)
[2016-06-15] VITALS: BP 119/69
[2016-06-15] MEDS: fentaNYL INJECTION 100 MCG/2 ML AMP IV PRN ×3 (05:37→23:43)
[2016-06-15] MEDS: PIPERACILLIN/TAZOBACTAM 4.5 GM/NS100 ML IVPB IV SCH ×6 (05:44→22:27)
[2016-06-15 08:00] VITALS: BP 156/97
[2016-06-15] MEDS: DULoxetine 30 MG (CYMBALTA) CAP PO SCH ×2 (08:14→22:25)
[2016-06-15] MEDS: ESTRADIOL 1 MG TAB (ESTRACE) PO SCH (08:14)
[2016-06-15] MEDS: NAPROXEN 250 MG (NAPROSYN) TABLET PO SCH ×2 (08:15→22:25)
[2016-06-15] MEDS: FAMOTIDINE 20 MG (PEPCID) TABLET PO PRN (08:15)
[2016-06-15] MEDS: toPIRamate 100 MG (TOPAMAX) TAB PO SCH ×2 (08:15→22:24)
[2016-06-15] MEDS: GABAPENTIN 600 MG (NEURONTIN) TAB PO SCH (08:15)
--- NOTE | 2016-06-15 11:56 | Progress Note-Hospitalist ---
Standard Progress Note Progress Notes/Assess & Plan Date Seen 06/15/16 Diagnosis Assessment: Mandibular cellulitis vs abscess Active meth user but denies UDS results Leukocytosis Assess & Plan/Chief Complaint The patient reports much less pain today. She states that while walking to the bathroom earlier this morning pus came from a third site which was left submental. She is able to chew at this time. Physical exam: The swelling is much less than yesterday. This is clear especially in the left corner of the mouth. There is much less of the purplish red erythema that was noted yesterday as well. Impression: Facial abscess with evidence of improvement. Plan Labs Laboratory Tests 06/14/16 07:18 MARSHA ROSSI MD Jun 15, 2016 11:56
[2016-06-15] MEDS: HYDROcodone/APAP 10 MG/325 MG (LORTAB) TAB PO PRN (15:02)
[2016-06-15 16:00] VITALS: BP 106/71
[2016-06-15] MEDS: MIRTAZAPINE 15 MG (REMERON) TAB PO SCH (22:25)
[2016-06-15] MEDS: clonazePAM 0.5 MG (KlonoPIN) TAB PO SCH (22:25)
[2016-06-16] VITALS: BP 122/72
[2016-06-16] MEDS: PIPERACILLIN/TAZOBACTAM 4.5 GM/NS100 ML IVPB IV SCH ×4 (05:32→13:00)
[2016-06-16 08:00] VITALS: BP 145/193
[2016-06-16] MEDS: DULoxetine 30 MG (CYMBALTA) CAP PO SCH (10:03)
[2016-06-16] MEDS: NAPROXEN 250 MG (NAPROSYN) TABLET PO SCH (10:03)
[2016-06-16] MEDS: ESTRADIOL 1 MG TAB (ESTRACE) PO SCH (10:03)
[2016-06-16] MEDS: FAMOTIDINE 20 MG (PEPCID) TABLET PO PRN (10:04)
[2016-06-16] MEDS: toPIRamate 100 MG (TOPAMAX) TAB PO SCH (10:04)
[2016-06-16] MEDS: GABAPENTIN 600 MG (NEURONTIN) TAB PO SCH (10:04)
--- NOTE | 2016-06-16 11:02 | Discharge Summary-Hospitalist ---
Diagnosis/Chief Complaint Date of Admission Jun 11, 2016 at 21:22 Date of Discharge Admission Diagnosis Assessment: Mandibular cellulitis vs abscess Active meth user but denies UDS results Leukocytosis Discharge Diagnosis Assessment: Mandibular cellulitis with abscess status post spontaneous rupture Active meth user but denies UDS results Leukocytosis senior net software engineer: Dr. Aguilar saw pt yesterday evening, and there is nothing that can be done at this time due to swelling. Pt likely unable to DC today. Dr. Aguilar called me at 11 o'clock and updated me on is planned to evaluate further for need of I&D but will be available as needed Patient Interview: Pt states that she feels more swollen today. Dr. Wallace informs pt that the swelling is condensing, and is not as widespread. Dr. Wallace informs pt that bloodwork is improved, and that pt may be able to DC over the weekend. Pt uses [facility]. Pt states that her pain is manageable. Physical exam stable. Pt states that she is having regular BMs. Assessment: Severe mandible cellulitis versus future formation of abscess consulted Dr. Aguilar no procedure planned as of yet FN phentermine use but continues to deny use Multiple superficial skin lesions on face consistent with meth use Chronic lisp Leukocytosis Plan: DC Vanc and maintain Zosyn Check labs in AM DC fluids Move to 4th floor if room available Scribed by Hood Galarza under the direct supervision of Dr. Wallace. Reason Hospital Visit/Course CC: Right facial swelling HPI: This is a 40yoWF pt of Dr. Mayo'michelle that presented to ER with right facial swelling. CT scan revealed no abscess formation but severe cellulitis. Pt is on chronic pain meds and denies any current pain. Pt has been placed on Vanc and Zosyn empirically but she reports that she feels a knot on her right lower gum so will speak with Dr. Aguilar to evaluate the need for I&D. senior net software engineer: RN states that pt is stable for move to 4th floor. Patient Interview: Pt states that her pain is under control, but is increased if she speaks too much. Physical exam stable. Pt states that her swelling is reduced, but pt states that the pressure increases if she lays on her side. Pt states that the sores on her face appeared with pts other symptoms. Pt denies using methamphetamine. Dr. Wallace informs pt that it was found in pt' s bloodwork, and pt continues to deny meth use, stating that lab findings are likely due to Zantac. Scribed by Hood Galarza under the direct supervision of Dr. Wallace. Notes from 06/17/2016: Chart Review: No fever Labs normal Pt still on Zosyn and abscess spontaneously ruptured yesterday Dr. Aguilar Review: Dr. Aguilar strongly suggests cleaning the abscess, and offers to do so at his office after DC from [facility]. Pharmacy Review: Pharmacy suggests Augmentin 875mg for another 5 days Patient Interview: Physical exam stable. Abscess still draining. Pt states that Dr. Aguilar has not seen pt today. Pt states that the tight knot in her mouth has resolved since the abscess ruptured. Pt states that pain is manageable currently. Pt is having regular BMs. Pt uses [facility], and recently stopped taking pain medicine regularly. vital signs stable, pleasant, oriented 3, Right mandibular region with draining abscess much improved no erythema and no fluctuance Plan: Augmentin 875mg for another 5 days Small supply of pain meds DC with follow-up abscess cleaning by Dr. Aguilar at 4pm today. Scribed by Hood Galarza under the direct supervision of Dr. Wallace. Hospital course: Patient had a lengthy hospital course because she required aggressive IV antibiotic empiric treatment due to possibility of inadequate follow-up that could result in worsening of her condition. She denied use of methamphetamines although it was present and her UDS but overall was compliant with all treatment plans while in the hospital and Dr. Aguilar graciously evaluated the patient and after spontaneous rupture of the abscess he made arrangements to see her in the office today at 4 p.m. upon discharge along with oral antibiotics to be continued. Discharge Summary Discharge Physical Examination Allergies: Coded Allergies: Sulfa (Sulfonamide Antibiotics) (Unverified Allergy, Unknown, 12/05/14) hydroxyzine (Unverified Adverse Reaction, Intermediate, 10/10/13) morphine (Unverified Adverse Reaction, Intermediate, 10/10/13) Vitals & I&Os Vital Signs Date Time Temp Pulse Resp B/P Pulse Ox O2 Delivery O2 Flow Rate FiO2 06/16/16 08:00 96.6 52 20 145/193 96 Room Air Hospital Course Labs (last 24 hrs) Microbiology 06/11/16 Blood Culture - Preliminary, Resulted No growth 06/11/16 Urine Culture - Final, Complete Escherichia Coli Discharge Home Medications: Active Scripts Active Augmentin 875-125 Tablet (Amoxicillin/Potassium Clav) 1 Each Tablet 1 Each PO BID Hydrocodon-Acetaminophn 10-325 (Hydrocodone/Acetaminophen) 1 Each Tablet 1 Ea PO Q4H PRN Reported Gabapentin 600 Mg Tablet 1,800 Mg PO DAILY TAKES 3 (600MG) TABLETS Clonazepam 0.5 Mg Tablet 0.5 Mg PO BID PRN Excedrin Extra Strength Caplet (Aspirin/Acetaminophen/Caffeine) 1 Each Tablet 2 Tab PO Q6H PRN Mirtazapine 15 Mg Tablet 15 Mg PO HS Acid Research Physician (RANITIDINE) (Ranitidine HCl) 150 Mg Tablet 150 Mg PO BID PRN Diphenhydramine HCl 25 Mg Capsule 25 Mg PO Q6H PRN Estradiol Tablet (Estradiol) 1 Mg Tablet 1 Mg PO DAILY Esomeprazole Magnesium 40 Mg Capsule.dr 40 Mg PO DAILY Naproxen 500 Mg Tablet 500 Mg PO BID Tizanidine HCl 4 Mg Tablet 4 Mg PO TID PRN Clonazepam 0.5 Mg Tablet 0.5 Mg PO HS Cymbalta (Duloxetine HCl) 60 Mg Capsule.dr 60 Mg PO BID Topamax 100 Mg (Topiramate) 100 Mg Tab 100 Mg PO BID Instructions to patient/family Please see electonic discharge instructions given to patient. Clinical Quality Measures DVT/VTE Risk/Contraindication: Risk Factor Score Per Nursin RFS Level Per Nursing on Admit: 3=High NANDA WALLACE DO Jun 16, 2016 11:02
[2016-06-16] MEDS ORDERED: AMOX-358 PO (11:18)
[2016-06-16] MEDS ORDERED: HYDR-3820 PO (11:18)
--- NOTE | 2016-06-16 11:20 | Discharge Instructions ---
Discharge Instructions Discharge Medications New, Converted or Re-Newed RX: Transmitted to Pharmacy New Medications: Amoxicillin/Potassium Clav (Augmentin 875-125 Tablet) 1 Each Tablet 1 EACH PO BID #10 TAB Hydrocodone/Acetaminophen (Hydrocodon-Acetaminophn 10-325) 1 Each Tablet 1 EA PO Q4H PRN MODERATE PAIN #30 TAB Continued Medications: Aspirin/Acetaminophen/Caffeine (Excedrin Extra Strength Caplet) 1 Each Tablet 2 TAB PO Q6H PRN PAIN TAB Clonazepam (Clonazepam) 0.5 Mg Tablet 0.5 MG PO HS TAB Clonazepam (Clonazepam) 0.5 Mg Tablet 0.5 MG PO BID PRN ANXIETY TAB Diphenhydramine HCl (Diphenhydramine HCl) 25 Mg Capsule 25 MG PO Q6H PRN ALLERGIES TAB Duloxetine Hcl (Cymbalta) 60 Mg Capsule.dr 60 MG PO BID CAP Esomeprazole Magnesium (Esomeprazole Magnesium) 40 Mg Capsule.dr 40 MG PO DAILY CAP Estradiol (Estradiol Tablet) 1 Mg Tablet 1 MG PO DAILY TAB Gabapentin (Gabapentin) 600 Mg Tablet 1800 MG PO DAILY TAKES 3 (600MG) TABLETS TAB Mirtazapine (Mirtazapine) 15 Mg Tablet 15 MG PO HS TAB Naproxen (Naproxen) 500 Mg Tablet 500 MG PO BID TAB Ranitidine HCl (Acid Dye Colorist Dyer (RANITIDINE)) 150 Mg Tablet 150 MG PO BID PRN HEARTBURN TAB Tizanidine HCl (Tizanidine HCl) 4 Mg Tablet 4 MG PO TID PRN MUSCLE SPASMS TAB Topiramate (Topamax 100 Mg) 100 Mg Tab 100 MG PO BID TAB Patient Instructions Goal/Follow Up Appt: Dr. Aguilar today at [address] Mayo in one week Activity & Diet Discharge Diet: No Restrictions Activity as Tolerated: Yes Copy Copies To 1: CLAUDY MAYO MD, MINDI DO Jun 16, 2016 11:20
[2016-06-16] MEDS: fentaNYL INJECTION 100 MCG/2 ML AMP IV PRN (13:01)
--- NOTE | 2016-06-16 13:11 | Physician Query ---
PQ-Conflicting Diagnosis Admission/Discharge Admission Date: Jun 11, 2016 at 21:22 Discharge Date: The medical record reflects the following clinical scenario: History/Risk Factors: Facial cellulitis/Mandibular abscess Clinical Findings: WBC16.0,Bands 2, Temp 98.8, pulse 104, resp 18, BP 118/85. Treatment: IV Vancomycin HCL 250 ml and IV Zosyn 100ml. Question: Do you agree with the impression of Sepsis per Acosta Phipps APRN ?. Please document a response below. PHYSICIAN RESPONSE Do you agree w/Consulting Dx?: Yes Please remember a lack of response to the above will prompt a phone page by [facility]/ coding staff. In responding to this query, please exercise your independent professional judgment. The purpose of this communication is to more accurately reflect the complexity of your patients condition. The fact that a question is asked does not imply that any particular answer is desired or expected. Thank you for your timely response to this clarification. Requestors name: Zuleyka Gonzalez [facility] [place] Phone # ext [phone] or [phone] THIS PHYSICIAN QUERY FORM IS A PERMANENT PART OF THE MEDICAL RECORD ZULEYKA GONZALEZ Jun 16, 2016 13:11 NANDA WALLACE DO Jun 16, 2016 14:30
== END 2016-06-16 18:41 | disposition home or self-care (01) | DRG 872 ==
LOC: EDUNIT# 19:50 → ER 19:51 → ICU 21:22 → 4TH 06-13 12:55
PROVIDERS: ADMIT Internal Medicine; ATTEND Internal Medicine
DX: A41.9 Sepsis, unspecified organism (principal); L03.211 Cellulitis of face; L02.01 Cutaneous abscess of face; N39.0 Urinary tract infection, site not specified; B96.20 Unspecified Escherichia coli [E. coli] as the cause of diseases classified elsewhere; F15.10 Other stimulant abuse, uncomplicated; L98.8 Other specified disorders of the skin and subcutaneous tissue; L01.00 Impetigo, unspecified; K21.9 Gastro-esophageal reflux disease without esophagitis; M79.7 Fibromyalgia; M06.9 Rheumatoid arthritis, unspecified; E66.9 Obesity, unspecified; G62.9 Polyneuropathy, unspecified; M19.91 Primary osteoarthritis, unspecified site; F41.9 Anxiety disorder, unspecified; F32.9 Major depressive disorder, single episode, unspecified; F80.0 Phonological disorder; F17.200 Nicotine dependence, unspecified, uncomplicated; Z23 Encounter for immunization; Z87.820 Personal history of traumatic brain injury; Z68.36 Body mass index [BMI] 36.0-36.9, adult; Z85.41 Personal history of malignant neoplasm of cervix uteri
CPT/HCPCS: 36415; 70487; 80053; 80202; 80306; 81000; 83605; 85007; 85025; 85027; 87040; 87088; 87186; 96365

== ENCOUNTER 2016-08-01 14:18 | Emergency (ER) | payer MEDICARE ==
[~2016-08-01] VITALS: Ht 165.1 cm; Wt 99.8 kg
[~2016-08-01 14:18] MED LIST changes: +ASPI-992 PO; +CLON0.5T25 PO; +DIPH25CA6 PO; +ESOM40CA52 PO; +ESTR1TAB24 PO; +GABA600T2 PO; +HYDR-3820 PO; +MIRT15TA6 PO; +NAPR500T3 PO; +RANI-515 PO
[2016-08-01] MEDS ORDERED: DOXY100T2 PO (14:34)
[2016-08-01] MEDS ORDERED: MUPI22OI2 TP (14:34)
--- NOTE | 2016-08-01 14:34 | ED Integumentary General ---
General Chief Complaint: Skin/Wound Problems Stated Complaint: POSS CHIN INFECTION Source: patient Exam Limitations: no limitations History of Present Illness Time seen by provider: 14:29 Initial Comments ER with multiple sores on her face but one larger one on her chin. She was admitted to the hospital earlier last month for facial cellulitis. She was here for a total of 5 or 6 days for that receiving IV antibiotics. She did follow-up with Dr. Aguilar. She states that she used methamphetamine most recently 1 week ago and she is in fact going to addiction treatment Center at [facility] today but would like to have some antibiotics for this before she goes in to keep this from getting infected while she is there. No fevers or chills. No swelling, only an open sore to the right lower chin. Timing/Duration: just prior to arrival Severity: moderate Location: face Associated Symptoms: denies symptoms Allergies and Home Medications Allergies Coded Allergies: Sulfa (Sulfonamide Antibiotics) (Unverified Allergy, Unknown, 12/05/14) hydroxyzine (Unverified Adverse Reaction, Intermediate, 10/10/13) morphine (Unverified Adverse Reaction, Intermediate, 10/10/13) Home Medications Aspirin/Acetaminophen/Caffeine 1 Each Tablet, 2 TAB PO Q6H PRN for PAIN, ( Reported) Clonazepam 0.5 Mg Tablet, 0.5 MG PO BID PRN for ANXIETY, (Reported) Diphenhydramine HCl 25 Mg Capsule, 25 MG PO Q6H PRN for ALLERGIES, (Reported) Duloxetine Hcl 60 Mg Capsule.dr, 60 MG PO BID, (Reported) Esomeprazole Magnesium 40 Mg Capsule.dr, 40 MG PO DAILY, (Reported) Estradiol 1 Mg Tablet, 1 MG PO DAILY, (Reported) Gabapentin 600 Mg Tablet, 1,800 MG PO DAILY, (Reported) TAKES 3 (600MG) TABLETS Mirtazapine 15 Mg Tablet, 15 MG PO HS, (Reported) Naproxen 500 Mg Tablet, 500 MG PO BID, (Reported) Ranitidine HCl 150 Mg Tablet, 150 MG PO BID PRN for HEARTBURN, (Reported) Tizanidine HCl 4 Mg Tablet, 4 MG PO TID PRN for MUSCLE SPASMS, (Reported) Topiramate 100 Mg Tab, 100 MG PO BID, (Reported) Constitutional: see HPI, No chills, No fever EENTM: see HPI Respiratory: no symptoms reported Cardiovascular: no symptoms reported Genitourinary: no symptoms reported Musculoskeletal: no symptoms reported Skin: see HPI Psychiatric/Neurological: No Symptoms Reported Endocrine: No Symptoms Reported Past Yrvhxla-Gzctxs-Zmvqbw Hx Patient Social History Alcohol Use: Denies Use Recreational Drug Use: No Smoking Status: Current Everyday Smoker 2nd Hand Smoke Exposure: Yes Recent Foreign Travel: No Contact w/Someone Who Travel: No Recent Hopitalizations: No Immunizations Up To Date Tetanus Booster (TDap): Less than 5yrs Date of Influenza Vaccine: Feb 22, 2014 Seasonal Allergies Seasonal Allergies: No Surgeries HX Surgeries: Yes (ERCP, COLONOSCOPY, LIPOMA,OVARIAN CYST REMOVAL X 5, LEFT HAND, RIGHT KNEE,) Surgeries: Appendectomy, Gallbladder, Hysterectomy, Orthopedic Respiratory Hx Respiratory Disorders: No Cardiovascular Hx Cardiac Disorders: Yes Cardiac Disorders: High Cholesterol Neurological Hx Neurological Disorders: Yes Neurological Disorders: Concussion, Neuropathy, 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 Injury Reproductive System Hx Reproductive Disorders: Yes 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 Genitourinary Hx Genitourinary Disorders: Yes Genitourinary Disorders: UTI-Chronic Gastrointestinal Hx Gastrointestinal Disorders: Yes Gastrointestinal Disorders: Gastroesophageal Reflux Musculoskeletal Hx Musculoskeletal Disorders: Yes (CHRONIC RIGHT LEG SCIATICA, CHRONIC RIGHT KNEE PAIN) Musculoskeletal Disorders: Degenerate Disk Disease, Arthritis, Fibromyalgia, Rheumatoid Arthritis, Chronic Back Pain Endocrine Hx Endocrine Disorders: Yes (OBESITY) HEENT HX ENT Disorders: No Cancer Hx Cancer: Yes Cancer: Cervical Psychosocial Hx Psychiatric Problems: Yes Behavioral Health Disorders: Anxiety, Depression Integumentary HX Skin/Integumentary Disorder: No Blood Transfusions Hx Blood Disorders: No Adverse Reaction to a Blood Tr: No Family Medical History Significant Family History: No Pertinent Family Hx Family Medial History: Alcoholism 19 FATHER Asthma 19 FATHER Completed stroke 19 FATHER 19 MOTHER Diabetes mellitus 19 MOTHER FH: emphysema 19 FATHER Hypertension 19 FATHER Myocardial infarction 19 FATHER (STENTS) Physical Exam Vital Signs Capillary Refill : General Appearance: WD/WN, no apparent distress HEENT: PERRL/EOMI, normal ENT inspection, other (open area to the right lower chin about 1 cm at skin level not ulcerated, surrounded by a honey colored crust that appears to be an impetigo type lesion. She has multiple sores on her face that are much smaller. 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 Decision time for Depature: 14:33 Referrals: IVETTE BAILEY MD (PCP/Family) Primary Care Physician Patient Instructions: Wound Care (DC) Add. Discharge Instructions: 1. Apply the antibiotic cream twice daily to the lesions on her face 2. Take the oral antibiotics as directed 3. Return to ER for any concerns All discharge instructions reviewed with patient and/or family. Voiced understanding. Scripts Mupirocin (Mupirocin) 22 Gm Oint...g. 1 GM TP BID, #1 TUBE Prov: LEEANNE TUBBS APRN 08/01/16 Doxycycline Hyclate (Doxycycline Hyclate) 100 Mg Tablet 100 MG PO BID, #14 TAB Prov: LEEANNE TUBBS APRN 08/01/16 LEEANNE TUBBS APRN Aug 01, 2016 14:34
[2016-08-01 14:37] VITALS: BP 141/100
== END 2016-08-01 14:37 | disposition home or self-care (01) ==
LOC: EDUNIT# 14:18 → ER 14:21
DX: L01.00 Impetigo, unspecified (principal); F15.288 Other stimulant dependence with other stimulant-induced disorder; F17.210 Nicotine dependence, cigarettes, uncomplicated
CPT/HCPCS: 99281

== ENCOUNTER → 2017-11-18 | Outpatient (CLI) | payer MEDICARE ==
[~2017-11-18] MED LIST changes: +CLON0.5T13 PO; +DOXY100T2 PO; +MUPI22OI2 TP; +NAPR-915 PO; -NAPR500T3 PO
--- NOTE | 2017-11-18 12:16 | Diagnostic Imaging Report ---
Indication: Routine screening. Comparison is made with prior mammogram from 11/16/2015. 2-D and 3-D bilateral screening mammography was performed with CAD. Both breasts are primarily involutional. Intraparenchymal lymph node upper outer right breast posterior depth is again noted and appears stable. The left breast is stable. No mass or malignant appearing microcalcifications are seen. The axillae are unremarkable. Impression: BI-RADS category 2 No mammographic features suspicious for malignancy are identified. ACR BI-RADS Category 2: Benign findings. Result letter will be mailed to the patient. Note: At least 10% of breast cancer is not imaged by mammography. Dictated by: Dictated on workstation # [id number]
== END ==
LOC: RAD 10:59
PROVIDERS: ATTEND Family Medicine
DX: Z12.31 Encounter for screening mammogram for malignant neoplasm of breast (principal)
CPT/HCPCS: 77067

== ENCOUNTER → 2017-12-21 | Outpatient (CLI) | payer MEDICARE ==
--- NOTE | 2017-12-21 18:27 | Diagnostic Imaging Report ---
Indication: Bilateral breast pain and areas of nodularity. Correlation is made with the recent screening mammogram from 11/18/2017. Sonographic interrogation of the bilateral axillae and upper outer quadrants was performed. There are normal-appearing lymph nodes in the axillae bilaterally with fatty kb. Thin overlying cortices are seen. Fatty node on the left is 2.3 x 0.7 cm. Fatty node on the right measures approximately 2.0 cm in length. There is thin overlying cortex. Upper-outer quadrants are unremarkable. No sonographic abnormality is seen. IMPRESSION: BI-RADS category 2. No suspicious sonographic abnormality is detected. Dictated by: Dictated on workstation # [id number]
== END ==
LOC: RAD 10:41
PROVIDERS: ATTEND Family Medicine
DX: N64.4 Mastodynia (principal); N63.0 Unspecified lump in unspecified breast
CPT/HCPCS: 76642

== ENCOUNTER → 2019-01-21 | Outpatient (CLI) | payer MEDICARE ==
[~2019-01-21] MED LIST changes: +AMOX500C2 PO; -GABA600T2 PO; +GBPN600T PO; +PRD20T PO; -TIZA4TAB3 PO; +TIZA4TAB4 PO
== END ==
LOC: RAD 14:59
PROVIDERS: ATTEND Family Medicine
DX: Z12.31 Encounter for screening mammogram for malignant neoplasm of breast (principal)

== ENCOUNTER 2019-01-27 13:39 | Emergency (ER) | payer MEDICARE ==
[~2019-01-27] VITALS: Ht 165 cm; Wt 92.7 kg
[~2019-01-27 13:39] MED LIST changes: -AMOX500C2 PO; -PRD20T PO
[2019-01-27] MEDS ORDERED: AMOX500C2 PO (13:52)
[2019-01-27] MEDS ORDERED: PRD20T PO (13:52)
--- NOTE | 2019-01-27 13:52 | ED EENT ---
History of Present Illness General Chief Complaint: Ear Problems Stated Complaint: SORE THROAT/L EAR PAIN Source: patient Exam Limitations: no limitations History of Present Illness Date Seen by Provider: Jan 27, 2019 Time Seen by Provider: 13:49 Initial Comments To ER with reports of sore throat 3 days, left ear pain onset today. She's had a nonproductive cough, no fevers or chills. Timing/Duration: gradual Severity: moderate Location: ear (L), throat Associated Symptoms: cough, sore throat Allergies and Home Medications Allergies Coded Allergies: Sulfa (Sulfonamide Antibiotics) (Unverified Allergy, Unknown, 12/05/14) hydroxyzine (Unverified Adverse Reaction, Intermediate, 10/10/13) morphine (Unverified Adverse Reaction, Intermediate, 10/10/13) Home Medications Aspirin/Acetaminophen/Caffeine 1 Each Tablet, 2 TAB PO Q6H PRN for PAIN, (Reported) Clonazepam 0.5 Mg Tablet, 0.5 MG PO BID PRN for ANXIETY, (Reported) Diphenhydramine HCl 25 Mg Capsule, 25 MG PO Q6H PRN for ALLERGIES, (Reported) Doxycycline Hyclate 100 Mg Tablet, 100 MG PO BID Prescribed by: LEEANNE TUBBS on 08/01/16 1434 Duloxetine Hcl 60 Mg Capsule.dr, 60 MG PO BID, (Reported) Esomeprazole Magnesium 40 Mg Capsule.dr, 40 MG PO DAILY, (Reported) Estradiol 1 Mg Tablet, 1 MG PO DAILY, (Reported) Gabapentin 600 Mg Tablet, 1,800 MG PO DAILY, (Reported) TAKES 3 (600MG) TABLETS Mirtazapine 15 Mg Tablet, 15 MG PO HS, (Reported) Mupirocin 22 Gm Oint...g., 1 GM TP BID Prescribed by: LEEANNE TUBBS on 08/01/16 1434 Naproxen 500 Mg Tablet, 500 MG PO BID, (Reported) Ranitidine HCl 150 Mg Tablet, 150 MG PO BID PRN for HEARTBURN, (Reported) Tizanidine HCl 4 Mg Tablet, 4 MG PO TID PRN for MUSCLE SPASMS, (Reported) Topiramate 100 Mg Tab, 100 MG PO BID, (Reported) Patient Home Medication List Home Medication List Reviewed: Yes Review of Systems Review of Systems Constitutional: see HPI Eyes: No Symptoms Reported Ears: No Symptoms Reported Nose: no symptoms reported Mouth: no symptoms reported Throat: see HPI, pain, painful swallowing Respiratory: no symptoms reported Cardiovascular: no symptoms reported Musculoskeletal: no symptoms reported Skin: no symptoms reported Neurological: No Symptoms Reported Hematologic/Lymphatic: No Symptoms Reported Immunological/Allergic: no symptoms reported Past Kvqyfbw-Atucow-Ilvvcw Hx Patient Social History Drug of Choice: meth 2nd Hand Smoke Exposure: Yes Recent Foreign Travel: No Contact w/Someone Who Travel: No Recent Hopitalizations: No Immunizations Up To Date Tetanus Booster (TDap): Less than 5yrs Date of Influenza Vaccine: Feb 22, 2014 Seasonal Allergies Seasonal Allergies: No Past Medical History Surgeries: Yes (ERCP, COLONOSCOPY, LIPOMA,OVARIAN CYST REMOVAL X 5, LEFT HAND, RIGHT KNEE,) Appendectomy, Gallbladder, Hysterectomy, Orthopedic Respiratory: No Cardiac: No High Cholesterol Neurological: Yes Concussion, Neuropathy, 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 Injury Reproductive Disorders: Yes 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 UTI-Chronic Gastrointestinal: Yes Gastroesophageal Reflux Musculoskeletal: Yes (TENS UNIT IN BACK,CHRONIC RIGHT LEG SCIATICA, CHRONIC RIGHT KNEE PAIN) Degenerate Disk Disease, Arthritis, Fibromyalgia, Rheumatoid Arthritis, Chronic Back Pain Endocrine: Yes (OBESITY) Cancer: Yes Cervical Psychosocial: Yes Anxiety, Depression Integumentary: No Blood Disorders: No Adverse Reaction/Blood Tranf: No Family Medical History Alcoholism 19 FATHER Asthma 19 FATHER Completed stroke 19 FATHER 19 MOTHER Diabetes mellitus 19 MOTHER FH: emphysema 19 FATHER Hypertension 19 FATHER Myocardial infarction 19 FATHER (STENTS) No Pertinent Family Hx Physical Exam Height, Weight, BMI Height: 5'5.00" Weight: 220lbs. 0.0oz. 99.863475yw; 34.00 BMI Method:Stated General Appearance: WD/WN, no apparent distress, other (Multiple scabs and sores on her face) Eyes: bilateral eye normal inspection, bilateral eye PERRL, bilateral eye EOMI Ears: left ear canal normal (questionable edema of the external canal. Tympanic membrane normal in appearance); bilateral ear auricle normal, bilateral ear TM normal Neck: non-tender, full range of motion Respiratory: no respiratory distress, no accessory muscle use Neurologic/Psychiatric: alert, normal mood/affect, oriented x 3 Skin: normal color, warm/dry Departure Impression Primary Impression: Pharyngitis Qualified Codes: J02.9 - Acute pharyngitis, unspecified Disposition: HOME, SELF-CARE Condition: Stable Departure-Patient Inst. Decision time for Depature: 13:50 Referrals: IVETTE BAILEY MD (PCP/Family) Primary Care Physician Patient Instructions: Sore Throat in Adults Add. Discharge Instructions: 1. Antibiotics and steroids as directed 2. Follow-up with your doctor next week 3. Tylenol and ibuprofen for pain control. All discharge instructions reviewed with patient and/or family. Voiced understanding. Scripts Amoxicillin (Amoxicillin) 500 Mg Capsule 500 MG PO TID, #21 CAP 0 Refills Prov: LEEANNE TUBBS APRN 01/27/19 Prednisone (Prednisone) 20 Mg Tab 40 MG PO DAILY, #6 TAB 0 Refills Prov: LEEANNE TUBBS APRN 01/27/19 LEEANNE TUBBS APRN Jan 27, 2019 13:52
[2019-01-27 13:58] VITALS: BP 144/99
== END 2019-01-27 13:58 | disposition home or self-care (01) ==
LOC: EDUNIT# 13:39 → ER 13:40
DX: J02.9 Acute pharyngitis, unspecified (principal); E78.00 Pure hypercholesterolemia, unspecified; G62.9 Polyneuropathy, unspecified; K21.9 Gastro-esophageal reflux disease without esophagitis; M79.7 Fibromyalgia; M06.9 Rheumatoid arthritis, unspecified; F41.9 Anxiety disorder, unspecified; F32.9 Major depressive disorder, single episode, unspecified; E66.9 Obesity, unspecified; Z87.820 Personal history of traumatic brain injury; Z85.41 Personal history of malignant neoplasm of cervix uteri; Z87.440 Personal history of urinary (tract) infections; Z88.2 Allergy status to sulfonamides; Z88.5 Allergy status to narcotic agent; Z88.8 Allergy status to other drugs, medicaments and biological substances; Z79.82 Long term (current) use of aspirin; Z79.52 Long term (current) use of systemic steroids; Z77.22 Contact with and (suspected) exposure to environmental tobacco smoke (acute) (chronic); Z90.49 Acquired absence of other specified parts of digestive tract; Z90.710 Acquired absence of both cervix and uterus; Z82.49 Family history of ischemic heart disease and other diseases of the circulatory system; Z68.34 Body mass index [BMI] 34.0-34.9, adult
CPT/HCPCS: 99282

== ENCOUNTER → 2019-02-25 | Outpatient (CLI) | payer MEDICARE ==
[~2019-02-25] MED LIST changes: +AMOX500C2 PO; +PRD20T PO
--- NOTE | 2019-02-25 13:50 | Diagnostic Imaging Report ---
INDICATION: Bilateral axillary swelling and left breast lump. Correlation is made with prior mammogram from 11/18/2017 and 11/16/2015. 2-D and 3-D bilateral diagnostic mammography was performed with CAD. Scattered fibroglandular densities are identified bilaterally. Benign-appearing intraparenchymal lymph node upper outer right breast posterior depth is stable. No spiculated masses or malignant-appearing microcalcifications are seen. Specifically, no abnormality at the area of BB marker marking the lump in the left breast is seen. The axillae are unremarkable bilaterally. IMPRESSION: BI-RADS Category 0 No mammographic features suspicious for malignancy are identified. Even so, directed sonographic interrogation of the area of lump in the left breast as well as bilateral axilla is recommended and will be performed today. ACR BI-RADS Category 0: Incomplete. (Needs additional imaging evaluation). Result letter will be mailed to the patient. Note: At least 10% of breast cancer is not imaged by mammography. Dictated by: Dictated on workstation # [id number]
--- NOTE | 2019-02-25 14:16 | Diagnostic Imaging Report ---
INDICATION: Bilateral axillary swelling and left breast lump. Correlation is made with diagnostic study earlier same day. Sonographic interrogation of the area of lump at the 6-7 o'clock location left breast was performed. No sonographic abnormality is seen. No solid or cystic mass is identified. In addition, bilateral axilla were evaluated. No sonographic abnormality is seen. IMPRESSION: BI-RADS Category 1 No sonographic abnormality is identified. ACR BI-RADS Category 1: Negative. Result letter will be mailed to the patient. Note: At least 10% of breast cancer is not imaged by mammography. Dictated by: Dictated on workstation # [id number]
== END ==
LOC: RAD 13:08
PROVIDERS: ATTEND Family Medicine
DX: N63.20 Unspecified lump in the left breast, unspecified quadrant (principal); N63.10 Unspecified lump in the right breast, unspecified quadrant
CPT/HCPCS: 76642; 77066

== ENCOUNTER 2021-02-27 14:58 | Inpatient (IN) | payer MEDICARE ==
[~2021-02-27] VITALS: Ht 165.1 cm; Wt 99.8 kg
[~2021-02-27 14:58] MED LIST changes: +ACHYD1T PO; -CLON0.5T13 PO; +CLON0.5T4 PO; +DIPH25CA48 PO; -DIPH25CA6 PO; -HYDR-3820 PO; +MIRT-68 PO; -MIRT15TA6 PO; -RANI-515 PO; +RANI-609 PO; +TIZA-186 PO; -TIZA4TAB4 PO
[2021-02-27] MEDS ORDERED: fentaNYL INJ 100 MCG/2 ML AMP IVP ONE ×3 (15:30→18:00)
[2021-02-27] MEDS ORDERED: ONDANSETRON 4 MG/2 ML (SDV) Z0FRAN IVP ONE (15:30)
--- NOTE | 2021-02-27 15:33 | ED Lower Extremity ---
General Stated Complaint: LEFT FOOT SWOLLEN Source: patient Exam Limitations: no limitations History of Present Illness Date Seen by Provider: Feb 27, 2021 Time Seen by Provider: 15:18 Initial Comments This is a well-appearing 45-year-old female who presented to the ER via POV with complaints of left foot pain and swelling for the past 5 days. States that her foot started becoming red and swollen and has progressively worsened and is traveling up her foot. She does have a history of MRSA. Denies any history of diabetes. Reports subjective fevers, chills, and nausea without emesis. Reports pain 10/10, sharp, stabbing. Unrelieved with over the counter medications. Did not receive COVID vaccines. Denies tobacco/alcohol/drug use. Allergies and Home Medications Allergies Coded Allergies: Sulfa (Sulfonamide Antibiotics) (Unverified Allergy, Unknown, 12/05/14) hydroxyzine (Unverified Adverse Reaction, Intermediate, 10/10/13) morphine (Unverified Adverse Reaction, Intermediate, 10/10/13) Patient Home Medication List Home Medication List Reviewed: Yes Amoxicillin (Amoxicillin) 500 Mg Capsule, 500 MG PO TID Prescribed by: LEEANNE TUBBS on 01/27/19 1352 Aspirin/Acetaminophen/Caffeine (Excedrin Extra Strength Caplet) 1 Each Tablet, 2 TAB PO Q6H PRN for PAIN, (Reported) Entered as Reported by: YANCI PETE on 06/12/16 0251 Clonazepam (Clonazepam) 0.5 Mg Tablet, 0.5 MG PO BID PRN for ANXIETY, (Reported) Entered as Reported by: EDNA BOB on 06/12/16 0901 Diphenhydramine HCl (Diphenhydramine HCl) 25 Mg Capsule, 25 MG PO Q6H PRN for ALLERGIES, (Reported) Entered as Reported by: YANCI PETE on 06/12/16 0251 Doxycycline Hyclate (Doxycycline Hyclate) 100 Mg Tablet, 100 MG PO BID Prescribed by: LEEANNE TUBBS on 08/01/16 1434 Duloxetine Hcl (Cymbalta) 60 Mg Capsule.dr, 60 MG PO BID, (Reported) Entered as Reported by: MARAL BAILEY on 05/18/09 0204 Esomeprazole Magnesium (Esomeprazole Magnesium) 40 Mg Capsule.dr, 40 MG PO DAILY, (Reported) Entered as Reported by: ALF SALMON on 06/11/162002 Estradiol (Estradiol Tablet) 1 Mg Tablet, 1 MG PO DAILY, (Reported) Entered as Reported by: YANCI PETE on 06/12/16 0244 Gabapentin (Gabapentin) 600 Mg Tablet, 1,800 MG PO DAILY, (Reported) Entered as Reported by: EDNA BOB on 06/12/16 0901 Mirtazapine (Mirtazapine) 15 Mg Tablet, 15 MG PO HS, (Reported) Entered as Reported by: YANCI PETE on 06/12/16 0251 Mupirocin (Mupirocin) 22 Gm Oint...g., 1 GM TP BID Prescribed by: LEEANNE TUBBS on 08/01/16 1434 Naproxen (Naproxen) 500 Mg Tablet, 500 MG PO BID, (Reported) Entered as Reported by: ALF SALMON on 06/11/162002 Prednisone (Prednisone) 20 Mg Tab, 40 MG PO DAILY Prescribed by: LEEANNE TUBBS on 01/27/19 1352 Ranitidine HCl (Acid Masonry Contractor Administrator (RANITIDINE)) 150 Mg Tablet, 150 MG PO BID PRN for HEARTBURN, (Reported) Entered as Reported by: YANCI PETE on 06/12/16 0251 Tizanidine HCl (Tizanidine HCl) 4 Mg Tablet, 4 MG PO TID PRN for MUSCLE SPASMS, (Reported) Entered as Reported by: GAIL SETHI on 12/06/14 0038 Topiramate (Topamax 100 Mg) 100 Mg Tab, 100 MG PO BID, (Reported) Entered as Reported by: MARAL BAILEY on 05/18/09 0203 Review of Systems Constitutional: see HPI EENTM: no symptoms reported Respiratory: no symptoms reported Cardiovascular: no symptoms reported Gastrointestinal: see HPI Genitourinary: no symptoms reported Musculoskeletal: see HPI Skin: see HPI Psychiatric/Neurological: No Symptoms Reported Past Kmdaxgp-Nbaehx-Crzqdz Hx Immunizations Up To Date Tetanus Booster (TDap): Less than 5yrs Seasonal Allergies Seasonal Allergies: No Past Medical History Surgeries: Yes (ERCP, COLONOSCOPY, LIPOMA,OVARIAN CYST REMOVAL X 5, LEFT HAND, RIGHT KNEE,) Appendectomy, Gallbladder, Hysterectomy, Orthopedic Respiratory: No Cardiac: Yes High Cholesterol Neurological: Yes Concussion, Neuropathy, 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 Injury Reproductive Disorders: Yes 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 UTI-Chronic Gastrointestinal: Yes Gastroesophageal Reflux Musculoskeletal: Yes (CHRONIC RIGHT LEG SCIATICA, CHRONIC RIGHT KNEE PAIN) Degenerate Disk Disease, Arthritis, Fibromyalgia, Rheumatoid Arthritis, Chronic Back Pain Endocrine: Yes (OBESITY) Cancer: Yes Cervical Psychosocial: Yes Anxiety, Depression Integumentary: No Blood Disorders: No Adverse Reaction/Blood Tranf: No Family Medical History Alcoholism 19 FATHER Asthma 19 FATHER Completed stroke 19 FATHER 19 MOTHER Diabetes mellitus 19 MOTHER FH: emphysema 19 FATHER Hypertension 19 FATHER Myocardial infarction 19 FATHER (STENTS) No Pertinent Family Hx Physical Exam Vital Signs Vital Signs - First Documented 02/27/21 15:14 Temp 36.5 Pulse 95 Resp 18 B/P (MAP) 166/116 (133) Pulse Ox 97 O2 Delivery Room Air Capillary Refill : Height, Weight, BMI Height: 5'5.00" Weight: 220lbs. 0.0oz. 99.522779xm; 34.00 BMI Method:Stated General Appearance: WD/WN, no apparent distress HEENT: PERRL/EOMI, normal ENT inspection, pharynx normal Neck: full range of motion, normal inspection Cardiovascular: regular rate, rhythm, no gallop, no murmur Respiratory: lungs clear, normal breath sounds, no respiratory distress, no accessory muscle use Gastrointestinal: normal bowel sounds, non tender, soft Hips: bilateral hip non-tender, bilateral hip normal inspection, bilateral hip normal range of motion Legs: bilateral leg non-tender, bilateral leg normal inspection, bilateral leg normal range of motion Feet: right foot non-tender, right foot normal inspection, right foot normal range of motion, right foot no evidence of injury; left foot infection, left foot pain, left foot soft tissue tenderness, left foot swelling Neurologic/Tendon: normal sensation, normal motor functions, normal tendon functions Neurologic/Psychiatric: no motor/sensory deficits, alert, normal mood/affect, oriented x 3 Skin: normal color, warm/dry Progress/Results/Core Measures Results/Orders Lab Results Laboratory Tests Test 02/27/21 15:25 Range/Units White Blood Count 20.5 H 4.3-11.0 10^3/uL Red Blood Count 4.65 3.80-5.11 10^6/uL Hemoglobin 13.6 11.5-16.0 g/dL Hematocrit 41 35-52 % Mean Corpuscular Volume 87 80-99 fL Mean Corpuscular Hemoglobin 29 25-34 pg Mean Corpuscular Hemoglobin Concent 34 32-36 g/dL Red Cell Distribution Width 13.8 10.0-14.5 % Platelet Count 406 H 130-400 10^3/uL Mean Platelet Volume 9.8 9.0-12.2 fL Immature Granulocyte % (Auto) 1 % Neutrophils (%) (Auto) 68 42-75 % Lymphocytes (%) (Auto) 24 12-44 % Monocytes (%) (Auto) 5 0-12 % Eosinophils (%) (Auto) 1 0-10 % Basophils (%) (Auto) 1 0-10 % Neutrophils # (Auto) 14.0 H 1.8-7.8 10^3/uL Lymphocytes # (Auto) 5.0 H 1.0-4.0 10^3/uL Monocytes # (Auto) 1.1 H 0.0-1.0 10^3/uL Eosinophils # (Auto) 0.2 0.0-0.3 10^3/uL Basophils # (Auto) 0.1 0.0-0.1 10^3/uL Immature Granulocyte # (Auto) 0.2 H 0.0-0.1 10^3/uL Neutrophils % (Manual) 71 % Lymphocytes % (Manual) 15 % Monocytes % (Manual) 6 % Eosinophils % (Manual) 1 % Basophils % (Manual) 1 % Band Neutrophils 0 % Nucleated Red Blood Cells 1 Reactive Lymphocytes 6 % Blood Morphology Comment NORMAL Prothrombin Time 13.9 12.2-14.7 SEC INR Comment 1.0 0.8-1.4 Activated Partial Thromboplast Time 40 H 24-35 SEC Sodium Level 139 135-145 MMOL/L Potassium Level 3.5 L 3.6-5.0 MMOL/L Chloride Level 105 98-107 MMOL/L Carbon Dioxide Level 20 L 21-32 MMOL/L Anion Gap 14 5-14 MMOL/L Blood Urea Nitrogen 7 7-18 MG/DL Creatinine 0.82 0.60-1.30 MG/DL Estimat Glomerular Filtration Rate 75 BUN/Creatinine Ratio 9 Glucose Level 283 H 70-105 MG/DL Lactic Acid Level 1.23 0.50-2.00 MMOL/L Calcium Level 10.0 8.5-10.1 MG/DL Corrected Calcium 10.2 H 8.5-10.1 MG/DL Total Bilirubin 0.4 0.1-1.0 MG/DL Aspartate Amino Transf (AST/SGOT) 15 5-34 U/L Alanine Aminotransferase (ALT/SGPT) 14 0-55 U/L Alkaline Phosphatase 95 40-136 U/L Total Protein 8.2 6.4-8.2 GM/DL Albumin 3.7 3.2-4.5 GM/DL My Orders Orders - AMANDA NEAL APRN Cbc With Automated Diff (02/27/21:25) Comprehensive Metabolic Panel (02/27/21) Blood Culture (02/27/21) Urinalysis (02/27/21) Urine Culture (02/27/21) Protime With Inr (02/27/21) Partial Thromboplastin Time (02/27/21:) Chest 1 View, Ap/Pa Only (02/27/21:) Ed Iv/Invasive Line Start (02/27/21:25) Vital Signs Adult Sepsis Patie Q15M (02/27/21 15:25) O2 (02/27/21:25) Remove Rings In Anticipation O (02/27/21:) Lactic Acid Analyzer (02/27/21:) Fentanyl Inj (Sublimaze Injection) (02/27/21 15:30) Ondansetron Injection (Zofran Injectio (02/27/21 15:30) Manual Differential (02/27/21:25) Procalcitonin (Pct) (02/27/21 16:01) Vancomycin Injection (Vancomycin Injecti (02/27/21 16:15) Foot, Left, 3 Views (02/27/21 16:05) Ed Admission (Communication) (02/27/21 16:23) Vancomycin Injection (Vancomycin Injecti (02/27/21 16:30) Fentanyl Inj (Sublimaze Injection) (02/27/21 16:30) Medications Given in ED Current Medications Medications Dose Ordered Sig/Michela Route Start Time Stop Time Status Last Admin Dose Admin Fentanyl Citrate 50 mcg ONCE ONCE IVP 02/27/21 15:30 02/27/21 15:31 DC 02/27/21 15:35 50 MCG Ondansetron HCl 4 mg ONCE ONCE IVP 02/27/21 15:30 02/27/21 15:31 DC 02/27/21 15:33 4 MG Vital Signs/I&O 02/27/21 02/27/21 15:14 16:20 Temp 36.5 36.7 Pulse 95 87 Resp 18 22 B/P (MAP) 166/116 (133) 160/104 Pulse Ox 97 96 O2 Delivery Room Air Room Air Progress Progress Note : Progress Note Patient examined and appears in no acute distress. She is in significant pain currently rating 10/10 at this time. She has significant swelling and erythema of her right great toe and distal left lateral foot. With her history of MRSA and systemic symptoms Will initiate sepsis work-up at this time. Will obtain images to evaluate extent of infection of her left foot. Fentanyl 50mcg IVP x1 for pain. Discussed case with Dr. Poe and she will admit patient to medical unit. She presented to the emergency department and evaluated patient and placed admission orders. Called Dr. Fitzpatrick and updated him for consultation at 1611. Plan of care discussed with patient and she is agreeable with plan. Given an additional Fentanyl 50mcg IVP for pain. Diagnostic Imaging Diagonstic Imaging: Xray Plain Films/CT/US/NM/MRI: chest Comments [facility] [place], [place] NAME: LISA SANTORO [facility] REC#: [id number] PT STATUS: REG ER : 1975 PHYSICIAN: AMANDA NEAL APRN ADMIT DATE: 02/27/21/ER Signed Date of Exam:02/27/21 CHEST 1 VIEW, AP/PA ONLY EXAMINATION: Chest 1 view HISTORY: Sepsis. COMPARISON: 12/06/2014. FINDINGS: The lung volumes are normal. No focal consolidation is seen. No large pleural effusion or pneumothorax is seen. The cardiomediastinal silhouette is normal in size and contour. No acute osseous abnormality is seen. IMPRESSION: 1. No acute pleuroparenchymal process. Dictated by: Dictated on workstation # [id number] Dict: 02/27/21 1619 Trans: 02/27/21 1623 [facility] [id number] Interpreted by: BRITNI BARKLEYally signed by: BRITNI BARKLEY DO 02/27/21 1623 Reviewed: Reviewed by Me Diagonstic Imaging: Xray Plain Films/CT/US/NM/MRI: other Comments [facility] [place], [place] NAME: LISA SANTORO [facility] REC#: [id number] PT STATUS: REG ER : 1975 PHYSICIAN: AMANDA NEAL APRN ADMIT DATE: 02/27/21/ER Draft Date of Exam:02/27/21 FOOT, LEFT, 3 VIEWS INDICATION: Left foot pain. COMPARISON: None FINDINGS: 3 views of the left foot demonstrate no fracture or dislocation. Articular surfaces normal. Calcaneal osteophytosis present. There is no radiopaque foreign body IMPRESSION: No fracture or dislocation. Dictated on workstation # [id number] Dict: 02/27/21 1617 Trans: 02/27/21 1620 [facility] [id number] Interpreted by: TRAVIS DAVID Electronically signed by: Reviewed: Reviewed by Me Departure Communication (Admissions) Time/Spoke to Admitting Phy: 16:04 Dr. Poe Time/Spoke to Consulting Phy: 16:11 Dr. Fitzpatrick Impression Primary Impression: Cellulitis of left foot Disposition: ADMITTED INPATIENT Condition: Stable Admissions Decision to Admit Reason: Admit from ER (General) Decision to Admit/Date: Feb 27, 2021 Time/Decision to Admit Time: 16:00 Departure-Patient Inst. Referrals: IVETTE BAILEY MD (PCP/Family) Primary Care Physician AMANDA NEAL APRN Feb 27, 2021 15:33
[2021-02-27 15:36] LABS: BASOPHILS # (AUTO) 0.1 10^3/uL (0.0-0.1); BASOPHILS % (AUTO) 1 % (0-10); EOSINOPHILS # (AUTO) 0.2 10^3/uL (0.0-0.3); EOSINOPHILS % (AUTO) 1 % (0-10); HEMATOCRIT 41 % (35-52); HEMOGLOBIN 13.6 g/dL (11.5-16.0); LYMPHOCYTES % (AUTO) 24 % (12-44); MEAN CORPUSCULAR HEMOGLOBIN 29 pg (25-34); MEAN CORPUSCULAR HGB CONC 34 g/dL (32-36); MEAN CORPUSCULAR VOLUME 87 fL (80-99); MEAN PLATELET VOLUME 9.8 fL (9.0-12.2); MONOCYTES # (AUTO) 1.1 10^3/uL (0.0-1.0); MONOCYTES % (AUTO) 5 % (0-12); NEUTROPHILS % (AUTO) 68 % (42-75); PLATELET COUNT 406 10^3/uL (130-400); WHITE BLOOD COUNT 20.5 10^3/uL (4.3-11.0)
[2021-02-27 15:45] LABS: ALBUMIN 3.7 GM/DL (3.2-4.5)
[2021-02-27 15:46] LABS: POTASSIUM 3.5 MMOL/L (3.6-5.0)
[2021-02-27 15:48] LABS: TOTAL PROTEIN 8.2 GM/DL (6.4-8.2)
[2021-02-27 15:50] LABS: BILIRUBIN,TOTAL 0.4 MG/DL (0.1-1.0)
[2021-02-27 15:51] LABS: CREATININE SERUM 0.82 MG/DL (0.60-1.30)
[2021-02-27 15:59] LABS: BAND NEUTROPHILS 0 %; BASOPHILS % (MANUAL) 1 %; EOSINOPHILS % (MANUAL) 1 %; LYMPHOCYTES % (MANUAL) 15 %; MONOCYTES % (MANUAL) 6 %; NEUTROPHILS % (MANUAL) 71 %
[2021-02-27 16:00] LABS: NUCLEATED RED BLOOD CELLS 1; RBC MORPH NORMAL; REACTIVE LYMPHOCYTES 6 %
[2021-02-27 16:01] LABS: PROTHROMBIN TIME PATIENT 13.9 SEC (12.2-14.7)
[2021-02-27] MEDS ORDERED: VANCOMYCIN INJECTION 1,000 MG in NS (IVPB) 250 ML IV ONE (16:15)
--- NOTE | 2021-02-27 16:20 | Diagnostic Imaging Report ---
EXAMINATION: Chest 1 view HISTORY: Sepsis. COMPARISON: 12/06/2014. FINDINGS: The lung volumes are normal. No focal consolidation is seen. No large pleural effusion or pneumothorax is seen. The cardiomediastinal silhouette is normal in size and contour. No acute osseous abnormality is seen. IMPRESSION: 1. No acute pleuroparenchymal process. Dictated by: Dictated on workstation # [id number]
--- NOTE | 2021-02-27 16:20 | Diagnostic Imaging Report ---
INDICATION: Left foot pain. COMPARISON: None FINDINGS: 3 views of the left foot demonstrate no fracture or dislocation. Articular surfaces normal. Calcaneal osteophytosis present. There is no radiopaque foreign body IMPRESSION: No fracture or dislocation. Dictated by: Dictated on workstation # [id number]
[2021-02-27] MEDS ORDERED: VANCOMYCIN 1,750 MG/NS 500 ML IVPB IV NR ×2 (16:30)
[2021-02-27 17:30] VITALS: BP 179/104
[2021-02-27] MEDS ORDERED: MELATONIN 3 MG TABLET PO PRN (17:30)
[2021-02-27] MEDS ORDERED: LIDOCAINE 1% INJ 20 ML 20 ML VIAL INJ NR (17:30)
[2021-02-27] MEDS ORDERED: ACETAMINOPHEN 500 MG TAB (TYLENOL) PO PRN (17:30)
[2021-02-27] MEDS ORDERED: VANCOMYCIN INJECTION 1,000 MG in NS (IVPB) 250 ML IV SCH (17:30)
[2021-02-27] MEDS ORDERED: ONDANSETRON 4 MG/2 ML (SDV) Z0FRAN IVP PRN (17:30)
[2021-02-27] MEDS ORDERED: diphenhydrAMINE 25 MG TAB (BENADRYL) PO PRN (17:30)
[2021-02-27] MEDS ORDERED: DOCUSATE SODIUM 100 MG (COLACE) CAP PO PRN (17:30)
[2021-02-27] MEDS ORDERED: LOPERAMIDE 2 MG (IMODIUM) TABLET PO PRN (17:30)
[2021-02-27] MEDS ORDERED: LIDOCAINE 1% INJ 20 ML 20 ML VIAL ONE (17:42)
--- NOTE | 2021-02-27 17:44 | CONSULTATION REPORT ---
DATE OF SERVICE: ATTENDING PRIMARY CARE PHYSICIAN: Rigoberto Echols. HISTORY OF PRESENT ILLNESS: The patient is a 45-year-old female who presented to the Emergency Department by private vehicle with a chief complaint of a left toe swelling and pain for the past 5 days. She states that this became red and swollen and progressively worsened over time. She does have a history of MRSA and has had other abscesses before in the past. Upon examination, she does have inflammation of the left great toe with overlying redness and erythema as well as what appears to be a small amount of fluctuance consistent with an abscess. PAST MEDICAL HISTORY: Neuropathy, hypercholesterolemia, traumatic brain injury, chronic urinary tract infection, gastroesophageal reflux disease, degenerative joint disease, fibromyalgia, rheumatoid arthritis, history of cervical cancer, depression. PAST SURGICAL HISTORY: Appendectomy, cholecystectomy, hysterectomy, orthopedic procedure. ALLERGIES: SULFA, HYDROXYZINE, MORPHINE. MEDICATIONS: Amoxicillin 500 mg t.i.d., clonazepam 0.5 mg b.i.d. p.r.n., diphenhydramine 25 mg p.r.n., duloxetine 60 mg b.i.d., Nexium 40 mg daily, estradiol 1 mg daily, gabapentin 600 mg t.i.d., mirtazapine 15 mg daily, prednisone 40 mg daily, ranitidine 150 mg b.i.d. p.r.n., tizanidine 4 mg t.i.d. p.r.n., topiramate 100 mg b.i.d. SOCIAL HISTORY: Negative smoke, negative alcohol. FAMILY HISTORY: Noncontributory. VITAL SIGNS: Temperature 36.5, blood pressure 166/116, pulse 95, respirations 18, pulse ox 97% on room air. REVIEW OF SYSTEMS: Well-nourished female currently in no acute distress. Guarded secondary to the toe pain. She is not experiencing any shortness of breath or difficulty breathing. No chest pain, palpitations, diaphoresis. No nausea, vomiting. No constipation, diarrhea. No red blood per rectum, no dark tarry stools. No fever, chills. No recent inadvertent weight loss. All other review of systems negative. PHYSICAL EXAMINATION: CHEST: Few scattered rales bilaterally. HEART: Regular, no murmurs. EXTREMITIES: No lower extremity edema, negative Homans sign. HEENT: No scleral icterus. NECK: No cervical lymphadenopathy. ABDOMEN: Soft, nontender, nondistended. SKIN: Warm, dry. Left great toe is dirty with some edema and some fluctuance to indicate an abscess along the medial aspect of the great toe. ASSESSMENT AND PLAN: A 45-year-old female with cellulitis and abscess of the left great toe. We will proceed with a bedside incision and drainage and send the fluid for culture and sensitivity to tailor appropriate antibiotics. Job ID: [id number] DocumentID: [id number] Dictated Date: 02/27/2021 17:32:20 Store Operations Manager Date: 02/27/2021 17:43:35 Dictated By: NINFA STUBBS MD
[2021-02-27] MEDS ORDERED: FLU QUADRIvalent (3YOA+) 60 mcg/0.5 ml 2021-22(AFLURIA) IM ONE (17:45)
[2021-02-27] MEDS ORDERED: fentaNYL INJ 100 MCG/2 ML AMP ONE (17:47)
[2021-02-27] MEDS ORDERED: PIPERACILLIN/TAZO 4.5 GM/NS 100 ML IV NR ×2 (18:00)
[2021-02-27] MEDS: ENOXAPARIN 40 MG/0.4 ML (LOVENOX) SYR SC SCH (18:06)
[2021-02-27] MEDS ORDERED: amLODIPine 5 MG (NORVASC) TAB PO NR (18:15)
[2021-02-27] MEDS: NS IV 1000 ML 1,000 ML IV SCH (18:15)
[2021-02-27 19:02] VITALS: BP 160/104
[2021-02-27] MEDS ORDERED: RT-ALBUTEROL SULF 2.5 MG/3 ML PRE-MIX VIAL INH PRN (19:15)
[2021-02-27] MEDS: SENNA W/DOCUSATE (SENOKOT S) TABLET PO SCH (19:39)
[2021-02-27] MEDS: polyethylene glycoL POWDER 17 GM (MIRALAX) PACK PO SCH (19:39)
[2021-02-27] MEDS: cloNIDine 0.1 MG (CATAPRES) TAB PO PRN (19:45)
[2021-02-27] MEDS: HYDROmorphone 2 MG/ML VIAL (DILAUDID) IVP PRN ×2 (19:45→22:20)
[2021-02-27 20:00] VITALS: BP 167/83
--- NOTE | 2021-02-27 20:27 | History & Physical-Hospitalist ---
History of Present Illness HPI/Chief Complaint Chief complaint: Left foot pain History of present illness: This is a 45-year-old white female meth user with diabetes who presented with left foot pain and it appears there is an abscess with cellulitis. Patient will be admitted for IV antibiotics and Dr. STUBBS will consult likely requiring incision and drainage. Source: patient Date Seen 02/27/21 Time Seen by a Provider: 17:00 Attending Physician Melissa Poe DO [facility] Referring Physician Date of Admission Feb 27, 2021 at 16:24 Home Medications & Allergies Home Medications Reviewed patient Home Medication Reconciliation performed by pharmacy medication reconciliations echo technician and/or nursing. Patients Allergies have been reviewed. Allergies Allergies Coded Allergies Sulfa (Sulfonamide Antibiotics) (Unverified Allergy, Unknown, 12/05/14) hydroxyzine (Unverified Adverse Reaction, Intermediate, 10/10/13) morphine (Unverified Adverse Reaction, Intermediate, 10/10/13) Past Uqynxqk-Uwhzzy-Actqof Hx Patient Social History Marrital Status: single Employed/Student: unemployed Tobacco Use?: Yes Tobacco type used: Cigarettes Smoking Status: Current Everyday Smoker Use of E-Cig and/or Vaping dev: No E-Cig or Vaping type used: Marijuana Use of E-Cig and/or Vaping Fleix: Never a User Substance use?: Yes Substance type: Marijuana Substance frequency: Couple times a week Alcohol Use?: No Pt feels they are or have been: No Immunizations Up To Date Date of Influenza Vaccine: Feb 22, 2014 First/Initial COVID19 Vaccinat: N/A Second COVID19 Vaccination Nilesh: N/A Hepatitis A: No Hepatitis B: No Seasonal Allergies Seasonal Allergies: No Current Status status: No Advance Directives: Yes Advance Directive Location: Home Communicates: Verbally Primary Language: [place] Preferred Spoken Language: [place] Is interpretation needed?: No Sensory deficits: Vision impairment Past Medical History Surgeries: Appendectomy, Gallbladder, Hysterectomy, Orthopedic High Cholesterol Concussion, Neuropathy, 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 Injury [employer]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 UTI-Chronic Gastroesophageal Reflux Degenerate Disk Disease, Arthritis, Fibromyalgia, Rheumatoid Arthritis, Chronic Back Pain Cervical Anxiety, Depression Blood Disorders: No Adverse Reaction/Blood Tranf: No Family Medical History Alcoholism 19 FATHER Asthma 19 FATHER Completed stroke 19 FATHER 19 MOTHER Diabetes mellitus 19 MOTHER FH: emphysema 19 FATHER Hypertension 19 FATHER Myocardial infarction 19 FATHER (STENTS) No Pertinent Family Hx Review of Systems Constitutional: see HPI, fever EENTM: no symptoms reported Respiratory: no symptoms reported Cardiovascular: no symptoms reported Gastrointestinal: no symptoms reported Genitourinary: no symptoms reported Musculoskeletal: joint pain Psychiatric/Neurological: See HPI All Other Systems Reviewed Negative Unless Noted: Yes Physical Exam Physical Exam Vital Signs Vital Signs - First Documented 02/27/21 15:14 Temp 36.5 Pulse 95 Resp 18 B/P (MAP) 166/116 (133) Pulse Ox 97 O2 Delivery Room Air Capillary Refill : Less Than 3 Seconds Height, Weight, BMI Height: 5'5.00" Weight: 220lbs. 0.0oz. [id number]; 37.17 BMI Method:Stated General Appearance: Anxious, Chronically ill, Obese, Severe Distress Eyes: Right Eye Normal Inspection, Right Eye PERRL HEENT: PERRL/EOMI, Normal ENT Inspection, Pharynx Normal, Moist Mucous Membranes Neck: Full Range of Motion, Normal Inspection, Non Tender Respiratory: Chest Non Tender, Lungs Clear, Normal Breath Sounds, No Accessory Muscle Use, No Respiratory Distress Cardiovascular: Regular Rate, Rhythm, No Edema, No Gallop, No JVD, No Murmur, Normal Peripheral Pulses Gastrointestinal: Normal Bowel Sounds, No Organomegaly, No Pulsatile Mass, Non Tender, Soft Back: Normal Inspection, No CVA Tenderness, No Vertebral Tenderness Extremity: Normal Capillary Refill, Normal Inspection, Normal Range of Motion, Non Tender, No Calf Tenderness, No Pedal Edema Neurologic/Psychiatric: Alert, Oriented x3, No Motor/Sensory Deficits, Normal Mood/Affect Skin: Normal Color, Warm/Dry, Other (Left foot below great toe with erythema and evidence of abscess) Lymphatic: No Adenopathy Results Results/Procedures Labs Laboratory Tests 02/27/21 15:25 02/28/21 05:25 Patient resulted labs reviewed. Assessment/Plan Admission Diagnosis Assessment: Sepsis Left foot abscess with cellulitis Diabetes [id number] Meth use Noncompliance Smoker Plan: IV antibiotics Dr. STUBBS consult appreciated Pain control Admission Status: Inpatient Order (span 2 midnights) Reason for Inpatient Admission: Abscess MELISSA POE DO Feb 27, 2021 20:27
[2021-02-27] MEDS ORDERED: hydrALAZINE (APRESOLINE) 25 MG TAB PO PRN (20:45)
[2021-02-27] MEDS: inSUlin ASPART (NovoLOG) 1 UNIT/0.01 ML (CHARGE PER UNIT) SC SCH (21:01)
[2021-02-27] MEDS: ENALAPRILAT 2.5 MG/2 ML (VASOTEC) VIAL IV SCH (22:04)
--- NOTE | 2021-02-27 22:13 | OPERATIVE REPORT ---
DATE OF SERVICE: 02/27/2021 ATTENDING PHYSICIAN: Dr. Poe. PREOPERATIVE DIAGNOSIS: Left great toe abscess. POSTOPERATIVE DIAGNOSIS: Left great toe abscess . PROCEDURE: Digital nerve block, incision and drainage, left great toe complex abscess. SURGEON: Ninfa Stubbs MD. ANESTHESIA: Digital nerve block and local. ESTIMATED BLOOD LOSS: Minimal. FINDINGS: Complex abscess of the left great toe with surrounding redness, erythema and cellulitis. DISPOSITION: The patient tolerated the procedure well. INDICATIONS: The patient is a 45-year-old female who presented with significant left great toe pain starting 5 days ago. She states that edema first started, then this became red, swollen, erythematous and more painful. She does have other medical history; however, does not report any history of diabetes. Upon examination, she was found to have a significant amount of edema of the left great toe as well as fluctuance indicating an abscess. She was also found to have leukocytosis with a white count of 20,000. DESCRIPTION OF PROCEDURE: The left foot was prepped and draped in standard surgical fashion. We first proceeded with a digital nerve block at the metacarpophalangeal joint bilaterally using 1% lidocaine. The complex abscess, which started along the medial aspect of the great toe wrapped around anteriorly and then went towards the medial portion of the great toe. This was anesthetized using 1% lidocaine. We then proceeded with incision and drainage of the complex abscess starting medially going anteriorly across the proximal portion of the phalanges to the medial aspect of the abscess. Abscess pocket was identified and bluntly dissected. The fluid was purulent and sent for culture and sensitivity. The open wound was then packed with 4 x 4 gauze followed by Kerlix wrap. The patient tolerated the procedure well. We will await culture and sensitivity results; however, continue with empiric antibiotic therapy and monitoring of her vital signs as well as her laboratory work. Job ID: [id number] DocumentID: [id number] Dictated Date: 02/27/2021 18:40:49 Giving Officer Date: 02/27/2021 22:12:31 Dictated By: NINFA STUBBS MD
[2021-02-27] MEDS: PIPERACILLIN/TAZOBACTAM (BULK) 4.5 GM in NS (IVPB) 100 ML IV SCH (23:48)
[2021-02-28] VITALS (7 sets, daily range): BP systolic 116–143; BP diastolic 61–86
[2021-02-28] MEDS: ENALAPRILAT 2.5 MG/2 ML (VASOTEC) VIAL IV SCH ×5 (01:09→23:44)
[2021-02-28] MEDS: HYDROmorphone 2 MG/ML VIAL (DILAUDID) IVP PRN ×4 (01:18→21:11)
[2021-02-28] MEDS: VANCOMYCIN 1500 MG/NS 500 ML IVPB IV SCH ×4 (05:29→19:27)
[2021-02-28 05:33] LABS: BASOPHILS # (AUTO) 0.1 10^3/uL (0.0-0.1); BASOPHILS % (AUTO) 1 % (0-10); EOSINOPHILS # (AUTO) 0.3 10^3/uL (0.0-0.3); EOSINOPHILS % (AUTO) 1 % (0-10); HEMATOCRIT 36 % (35-52); HEMOGLOBIN 11.6 g/dL (11.5-16.0); LYMPHOCYTES # (AUTO) 5.3 10^3/uL (1.0-4.0); LYMPHOCYTES % (AUTO) 26 % (12-44); MEAN CORPUSCULAR HEMOGLOBIN 29 pg (25-34); MEAN CORPUSCULAR HGB CONC 33 g/dL (32-36); MEAN CORPUSCULAR VOLUME 89 fL (80-99); MEAN PLATELET VOLUME 9.9 fL (9.0-12.2); MONOCYTES # (AUTO) 1.5 10^3/uL (0.0-1.0); MONOCYTES % (AUTO) 7 % (0-12); NEUTROPHILS # (AUTO) 13.1 10^3/uL (1.8-7.8); NEUTROPHILS % (AUTO) 64 % (42-75); PLATELET COUNT 373 10^3/uL (130-400); WHITE BLOOD COUNT 20.4 10^3/uL (4.3-11.0)
[2021-02-28] MEDS: inSUlin ASPART (NovoLOG) 1 UNIT/0.01 ML (CHARGE PER UNIT) SC SCH ×4 (05:42→21:11)
[2021-02-28 05:58] LABS: ALBUMIN 3.2 GM/DL (3.2-4.5); POTASSIUM 3.6 MMOL/L (3.6-5.0)
[2021-02-28 05:59] LABS: CALCIUM 9.2 MG/DL (8.5-10.1)
[2021-02-28 06:02] LABS: BILIRUBIN,TOTAL 0.4 MG/DL (0.1-1.0)
[2021-02-28 06:04] LABS: CREATININE SERUM 0.84 MG/DL (0.60-1.30)
[2021-02-28] MEDS: SENNA W/DOCUSATE (SENOKOT S) TABLET PO SCH ×2 (09:13→19:29)
[2021-02-28] MEDS: polyethylene glycoL POWDER 17 GM (MIRALAX) PACK PO SCH ×2 (09:13→19:29)
[2021-02-28] MEDS: amLODIPine 5 MG (NORVASC) TAB PO SCH (09:14)
[2021-02-28] MEDS: ACETAMINOPHEN 325 MG TABLET PO PRN ×2 (09:14→21:11)
[2021-02-28] MEDS: ALPRAZolam 0.25 MG (XANAX) TAB PO PRN (09:15)
[2021-02-28] MEDS: NS IV 1000 ML 1,000 ML IV SCH ×2 (09:16→16:15)
[2021-02-28] MEDS: PIPERACILLIN/TAZOBACTAM (BULK) 4.5 GM in NS (IVPB) 100 ML IV SCH ×3 (09:31→23:39)
--- NOTE | 2021-02-28 13:23 | Progress Note - Hospitalist ---
ILEANA LEPE 02/28/21 1323: Subjective HPI/CC On Admission Date Seen by Provider: Feb 28, 2021 Time Seen by Provider: 08:31 Chief complaint: Left foot pain Subjective/Events-last exam Ms. Fernández reports being in a lot of pain this morning but she says it is must better than yesterday. She reported that her pain was a 100/10 yesterday but today it was only a 10/10. Yesterday Dr. Fitzpatrick performed a bedside I&D of her left foot. The fluid was then sent for culture. She is currently being treated with Vancomycin and Pip-Tazo. She said that she felt like she was improving and did not have any new complaints this morning. Review of Systems General: No Chills, No Fatigue Pulmonary: No Dyspnea; Cough Cardiovascular: No: Chest Pain, Palpitations Gastrointestinal: No: Nausea, Vomiting, Abdominal Pain, Diarrhea, Constipation Neurological: No: Weakness, Confusion Focused Exam Lactate Level 02/27/21 15:25: Lactic Acid Level 1.23 Capillary Refill: Less Than 3 Seconds Peripheral Pulses: 2+ Radial Pulses (R), 2+ Radial Pulses (L) Objective Exam Vital Signs Vital Signs Date Time Temp Pulse Resp B/P (MAP) Pulse Ox O2 Delivery O2 Flow Rate FiO2 02/28/21 11:09 36.6 85 22 143/86 (105) 95 Room Air Capillary Refill : Less Than 3 Seconds General Appearance: No Apparent Distress (Patient reported 10/10 pain but conversed normally during out encounter), WD/WN HEENT: PERRL/EOMI, Moist Mucous Membranes; No Scleral Icterus (L), No Scleral Icterus (R) Neck: Normal Inspection, Non Tender; No Lymphadenopathy (L), No Lymphadenopathy (R) Respiratory: Chest Non Tender, Lungs Clear, Normal Breath Sounds, No Accessory Muscle Use, No Respiratory Distress Cardiovascular: Regular Rate, Rhythm, No Edema, No Murmur, Normal Peripheral Pulses Gastrointestinal: Normal Bowel Sounds, Non Tender, Soft Extremity: Normal Capillary Refill, Non Tender, Pedal Edema, Other (Cellulitis of L foot. 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 Assessment/Plan Assessment and Plan Assess & Plan/Chief Complaint Assessment Cellulitis of L foot - Fluid sent for culture - Being treated with broad spectrum currently - Plain films normal, no signs of osteomyelitis Sepsis Uncontrolled Diabetes Meth use Tobacco use Plan IV Vancomycin and Pip-Tazo Dr. Fitzpatrick consulted for I&D, performed yesterday Pain control as needed Supportive treatment MELISSA WALLACE DO 03/01/21 0543: Subjective Subjective/Events-last exam Patient doing much better Sleeping most of the time IV antibiotics maintained Status post incision and drainage at the bedside by Dr. FITZPATRICK which is helped Review of Systems Gastrointestinal: Abdominal Pain Objective Exam General Appearance: No Apparent Distress, WD/WN, Chronically ill Respiratory: Lungs Clear, Normal Breath Sounds Cardiovascular: Regular Rate, Rhythm Neurologic/Psychiatric: Alert, Oriented x3, No Motor/Sensory Deficits, Normal Mood/Affect Assessment/Plan Assessment and Plan Assess & Plan/Chief Complaint IV antibiotics Insulin Supervisory-Addendum Brief Verification & Attestation Participated in pt care: history, MDM, physical Personally performed: exam, history, MDM, supervision of care Care discussed with: Medical Student Procedures: n/a Results interpretation: Verified all documentation Verification and Attestation of Medical Student E/M Service A medical student performed and documented this service in my presence. I reviewed and verified all information documented by the medical student and made modifications to such information, when appropriate. I personally performed the physical exam and medical decision making. Melissa Wallace Mar 01, 2021,05:41 ILEANA LEPE Feb 28, 2021 13:23 MELISSA WALLACE DO Mar 01, 2021 05:43
[2021-02-28] MEDS ORDERED: ASPI-789 PO (14:27)
[2021-02-28] MEDS ORDERED: TOPI100T11 PO (14:27)
[2021-02-28] MEDS ORDERED: DULO60CA59 PO (14:27)
[2021-02-28] MEDS ORDERED: MECL-149 PO (14:27)
--- NOTE | 2021-02-28 16:56 | Progress Note ---
Subjective Date Seen by a Provider: Feb 28, 2021 Time Seen by a Provider: 16:40 Subjective/Events-last exam Patient seen with Dr. Fitzpatrick. Patient reports left great toe is painful. Denies any fevers. Reports had dressing changed earlier today. Focused Exam Lactate Level 02/27/21 15:25: Lactic Acid Level 1.23 Objective Exam Vital Signs Date Time Temp Pulse Resp B/P (MAP) Pulse Ox O2 Delivery O2 Flow Rate FiO2 02/28/21 16:00 36.3 78 20 142/86 (104) 96 Room Air 02/28/21 13:00 73 02/28/21 11:09 36.6 85 22 143/86 (105) 95 Room Air 02/28/21 08:00 95 Room Air 02/28/21 07:40 36.3 80 24 143/84 (103) 93 Room Air 02/28/21 07:00 81 02/28/21 04:21 37.4 85 24 116/74 (88) 94 Room Air 02/28/21 01:06 89 116/75 (89) 02/28/21 01:00 90 02/28/21 00:38 36.7 89 20 135/75 (95) 94 Room Air 02/27/21 22:12 103 02/27/21 20:00 36.8 91 18 167/83 (111) 92 Room Air 02/27/21 19:45 Room Air 02/27/21 19:02 36.7 87 96 02/27/21 18:35 Room Air 02/27/21 17:30 36.0 89 20 179/104 (129) 97 Room Air 02/27/21 17:27 36.5 79 18 150/96 97 Room Air I & O 02/28/21 07:00 Intake Total 890 ml Output Total 405 ml Balance 485 ml Capillary Refill : Less Than 3 Seconds General Appearance: No Apparent Distress, WD/WN Neck: Normal Inspection, Supple Respiratory: No Accessory Muscle Use, No Respiratory Distress Cardiovascular: Regular Rate, Rhythm, No Edema Gastrointestinal: normal bowel sounds, non tender, soft Extremity: Normal Range of Motion, Other (The left great toe had open incision of the medial side that does have purulent drainage with palpation. There is redness, erythema, and edema of the left great toe) Neurologic/Psychiatric: Alert, Oriented x3 Skin: Normal Color, Warm/Dry Results Lab Laboratory Tests 02/27/21 20:04: Glucometer 230H 02/28/21 05:24: Glucometer 178H 02/28/21 05:25: White Blood Count 20.4H, Red Blood Count 4.02, Hemoglobin 11.6, Hematocrit 36, Mean Corpuscular Volume 89, Mean Corpuscular Hemoglobin 29, Mean Corpuscular Hemoglobin Concent 33, Red Cell Distribution Width 14.3, Platelet Count 373, Mean Platelet Volume 9.9, Immature Granulocyte % (Auto) 1, Neutrophils (%) (Auto) 64, Lymphocytes (%) (Auto) 26, Monocytes (%) (Auto) 7, Eosinophils (%) (Auto) 1, Basophils (%) (Auto) 1, Neutrophils # (Auto) 13.1H, Lymphocytes # (Auto) 5.3H, Monocytes # (Auto) 1.5H, Eosinophils # (Auto) 0.3, Basophils # (Auto) 0.1, Immature Granulocyte # (Auto) 0.2H, Sodium Level 140, Potassium Level 3.6, Chloride Level 107, Carbon Dioxide Level 20L, Anion Gap 13, Blood Urea Nitrogen 11, Creatinine 0.84, Estimat Glomerular Filtration Rate 73, BUN/Creatinine Ratio 13, Glucose Level 196H, Calcium Level 9.2, Corrected Calcium 9.8, Total Bilirubin 0.4, Aspartate Amino Transf (AST/SGOT) 15, Alanine Aminotransferase (ALT/SGPT) 12, Alkaline Phosphatase 79, Total Protein 7.0, Albumin 3.2 02/28/21 11:08: Glucometer 201H 02/28/21 14:14: Glucometer 152H 02/28/21 15:09: Glucometer 138H Microbiology 02/27/21 Gram Stain, Resulted Pending 02/27/21 Surgical Culture - Preliminary, Resulted Staphylococcus aureus 02/27/21 Blood Culture - Preliminary, Resulted No growth Assessment/Plan Assessment/Plan Assess & Plan/Chief Complaint A 45-year-old female with cellulitis and abscess of the left great toe who is s/p I&D yesterday. VSS WBC 20.4 Continue IV abx and pain medication Dressing changes Culture grew out staph aureus - on CHANEL Fields APRN Feb 28, 2021 16:56
[2021-02-28] MEDS: ENOXAPARIN 40 MG/0.4 ML (LOVENOX) SYR SC SCH (18:32)
[2021-03-01 00:11] VITALS: BP 117/61
[2021-03-01] MEDS: HYDROmorphone 2 MG/ML VIAL (DILAUDID) IVP PRN ×2 (03:19→15:47)
[2021-03-01 03:51] VITALS: BP 126/78
[2021-03-01] MEDS ORDERED: TROUGH ORDER-PHARMACY XX NR (05:00)
[2021-03-01 05:28] LABS: BASOPHILS # (AUTO) 0.1 10^3/uL (0.0-0.1); BASOPHILS % (AUTO) 1 % (0-10); EOSINOPHILS # (AUTO) 0.3 10^3/uL (0.0-0.3); EOSINOPHILS % (AUTO) 2 % (0-10); HEMATOCRIT 35 % (35-52); HEMOGLOBIN 11.3 g/dL (11.5-16.0); LYMPHOCYTES # (AUTO) 5.4 10^3/uL (1.0-4.0); LYMPHOCYTES % (AUTO) 34 % (12-44); MEAN CORPUSCULAR HEMOGLOBIN 29 pg (25-34); MEAN CORPUSCULAR HGB CONC 32 g/dL (32-36); MEAN CORPUSCULAR VOLUME 90 fL (80-99); MEAN PLATELET VOLUME 9.8 fL (9.0-12.2); MONOCYTES # (AUTO) 1.1 10^3/uL (0.0-1.0); MONOCYTES % (AUTO) 7 % (0-12); NEUTROPHILS # (AUTO) 8.8 10^3/uL (1.8-7.8); NEUTROPHILS % (AUTO) 55 % (42-75); PLATELET COUNT 341 10^3/uL (130-400)
[2021-03-01] MEDS: ENALAPRILAT 2.5 MG/2 ML (VASOTEC) VIAL IV SCH (05:35)
[2021-03-01] MEDS: inSUlin ASPART (NovoLOG) 1 UNIT/0.01 ML (CHARGE PER UNIT) SC SCH ×4 (05:36→22:30)
[2021-03-01 05:39] LABS: POTASSIUM 3.6 MMOL/L (3.6-5.0)
[2021-03-01 05:40] LABS: CALCIUM 8.8 MG/DL (8.5-10.1)
[2021-03-01 05:41] LABS: TOTAL PROTEIN 6.5 GM/DL (6.4-8.2)
[2021-03-01 05:43] LABS: BILIRUBIN,TOTAL 0.3 MG/DL (0.1-1.0)
[2021-03-01 05:45] LABS: CREATININE SERUM 0.75 MG/DL (0.60-1.30)
[2021-03-01 05:56] LABS: VANCOMYCIN,TROUGH 11.9 UG/ML (10.0-20.0)
[2021-03-01] MEDS: VANCOMYCIN 1500 MG/NS 500 ML IVPB IV SCH ×2 (06:16)
[2021-03-01 07:23] VITALS: BP 147/66
[2021-03-01] MEDS: amLODIPine 5 MG (NORVASC) TAB PO SCH (08:30)
[2021-03-01] MEDS: PIPERACILLIN/TAZOBACTAM (BULK) 4.5 GM in NS (IVPB) 100 ML IV SCH ×3 (08:30→22:30)
[2021-03-01] MEDS: SENNA W/DOCUSATE (SENOKOT S) TABLET PO SCH ×2 (08:31→22:29)
[2021-03-01] MEDS: polyethylene glycoL POWDER 17 GM (MIRALAX) PACK PO SCH ×2 (08:32→22:29)
[2021-03-01] MEDS: ACETAMINOPHEN 325 MG TABLET PO PRN (08:41)
[2021-03-01 12:30] VITALS: BP 100/57
--- NOTE | 2021-03-01 13:20 | Progress Note - Hospitalist ---
ILEANA LEPE Juwan 03/01/21 1320: Subjective HPI/CC On Admission Date Seen by Provider: Mar 01, 2021 Time Seen by Provider: 07:56 Chief complaint: Left foot pain Subjective/Events-last exam Ms. Fernández continues to report foot pain this morning but she says it has improved from yesterday to today. She reports her pain level as a 9/10 today. She says that she has a normal appetite and has normal bowel and bladder habits. She reports her dressing was changed yesterday afternoon which was exceptionally painful. The fluid sent for culture from her I&D came back and was identified as MRSA. Review of Systems General: No Chills, No Fatigue HEENT: Head Aches Pulmonary: No Dyspnea; Cough Cardiovascular: No: Chest Pain, Palpitations Gastrointestinal: Nausea; No: Vomiting, Abdominal Pain, Diarrhea Genitourinary: No Dysuria, No Frequency Musculoskeletal: foot pain Neurological: No: Weakness, Confusion Focused Exam Lactate Level 02/27/21 15:25: Lactic Acid Level 1.23 Capillary Refill: Less Than 3 Seconds Peripheral Pulses: 2+ Radial Pulses (R), 2+ Radial Pulses (L) Objective Exam Vital Signs Vital Signs Date Time Temp Pulse Resp B/P (MAP) Pulse Ox O2 Delivery O2 Flow Rate FiO2 03/01/21 12:30 37.8 76 22 100/57 (71) 93 Room Air Capillary Refill : Less Than 3 Seconds General Appearance: No Apparent Distress (Patient reports pain as a 9/10 but was sleeping comfortably at the start of our encounter. 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 Assessment/Plan Assessment and Plan Assess & Plan/Chief Complaint Assessment Cellulitis of L foot - Cultured as MRSA - Being treated with broad spectrum currently - Plain films normal, no signs of osteomyelitis Sepsis Uncontrolled Diabetes Meth use Tobacco use Plan IV Vancomycin and Pip-Tazo Dr. Fitzpatrick consulted for I&D, performed 2 days ago Pain control as needed Supportive treatment MELISSA WALLACE DO 03/02/21 0614: Subjective Subjective/Events-last exam Patient doing well Much better HLIVF DC Tely Review of Systems General: Fatigue, Malaise Musculoskeletal: foot pain Objective Exam General Appearance: No Apparent Distress, WD/WN, Chronically ill, Obese Respiratory: Lungs Clear Cardiovascular: Regular Rate, Rhythm Assessment/Plan Assessment and Plan Assess & Plan/Chief Complaint IV abx Monitor closely Supportive care Supervisory-Addendum Brief Verification & Attestation Participated in pt care: history, MDM, physical Personally performed: exam, history, MDM, supervision of care Care discussed with: Medical Student Procedures: n/a Results interpretation: Verified all documentation Verification and Attestation of Medical Student E/M Service A medical student performed and documented this service in my presence. I reviewed and verified all information documented by the medical student and made modifications to such information, when appropriate. I personally performed the physical exam and medical decision making. Melissa Wallace, Mar 02, 2021,06:11 ILEANA LEPE Mar 01, 2021 13:20 MELISSA WALLACE DO Mar 02, 2021 06:14
--- NOTE | 2021-03-01 13:43 | Progress Note ---
Subjective Date Seen by a Provider: Mar 01, 2021 Time Seen by a Provider: 13:00 Subjective/Events-last exam doing well. no fever/chills. less foot edeme, no new areas redness/erythema. Focused Exam Lactate Level 02/27/21 15:25: Lactic Acid Level 1.23 Objective Exam Vital Signs Date Time Temp Pulse Resp B/P (MAP) Pulse Ox O2 Delivery O2 Flow Rate FiO2 03/01/21 12:30 37.8 76 22 100/57 (71) 93 Room Air 03/01/21 09:19 Room Air 03/01/21 07:23 37.0 86 22 147/66 (93) 94 Room Air 03/01/21 07:00 81 03/01/21 03:51 36.3 75 20 126/78 (94) 92 Room Air 03/01/21 01:00 79 03/01/21 00:11 36.4 84 20 117/61 (79) 92 Room Air 02/28/21 21:55 37.0 02/28/21 21:11 37.7 02/28/21 20:50 37.7 86 20 117/61 (79) 91 Room Air 02/28/21 19:34 Room Air 02/28/21 19:00 80 02/28/21 18:19 90 Room Air 02/28/21 16:00 36.3 78 20 142/86 (104) 96 Room Air I & O 03/01/21 07:00 Intake Total 2825 ml Output Total 1350 ml Balance 1475 ml Capillary Refill : Less Than 3 Seconds General Appearance: No Apparent Distress HEENT: PERRL/EOMI Neck: Full Range of Motion Respiratory: Chest Non Tender, Lungs Clear, Normal Breath Sounds Cardiovascular: Regular Rate, Rhythm Gastrointestinal: normal bowel sounds, non tender, soft Extremity: Normal Capillary Refill, Other (wound clean/dry) Neurologic/Psychiatric: Alert, Oriented x3 Skin: Normal Color Lymphatic: No Adenopathy Results Lab Laboratory Tests 02/28/21 14:14: Glucometer 152H 02/28/21 15:09: Glucometer 138H 02/28/21 20:10: Glucometer 192H 03/01/21 05:18: White Blood Count 16.0H, Red Blood Count 3.87, Hemoglobin 11.3L, Hematocrit 35, Mean Corpuscular Volume 90, Mean Corpuscular Hemoglobin 29, Mean Corpuscular Hemoglobin Concent 32, Red Cell Distribution Width 14.6H, Platelet Count 341, Mean Platelet Volume 9.8, Immature Granulocyte % (Auto) 1, Neutrophils (%) (Auto) 55, Lymphocytes (%) (Auto) 34, Monocytes (%) (Auto) 7, Eosinophils (%) (Auto) 2, Basophils (%) (Auto) 1, Neutrophils # (Auto) 8.8H, Lymphocytes # (Auto) 5.4H, Monocytes # (Auto) 1.1H, Eosinophils # (Auto) 0.3, Basophils # (Auto) 0.1, Immature Granulocyte # (Auto) 0.2H, Sodium Level 141, Potassium Level 3.6, Chloride Level 106, Carbon Dioxide Level 20L, Anion Gap 15H, Blood Urea Nitrogen 12, Creatinine 0.75, Estimat Glomerular Filtration Rate 84, BUN/Creatinine Ratio 16, Glucose Level 155H, Calcium Level 8.8, Corrected Calcium 9.6, Total Bilirubin 0.3, Aspartate Amino Transf (AST/SGOT) 17, Alanine Aminotransferase (ALT/SGPT) 14, Alkaline Phosphatase 72, Total Protein 6.5, Albumin 3.0L, Vancomycin Level Trough 11.9 03/01/21 05:20: Glucometer 165H 03/01/21 10:56: Glucometer 185H Microbiology 02/27/21 Gram Stain, Resulted Pending 02/27/21 Surgical Culture - Preliminary, Resulted Staphylococcus aureus 02/27/21 Blood Culture - Preliminary, Resulted No growth Assessment/Plan Assessment/Plan Assess & Plan/Chief Complaint s/p I&D left foot abscess. wet to dry BID. cont abx. NINFA STUBBS MD Mar 01, 2021 13:43
[2021-03-01] MEDS: ENOXAPARIN 40 MG/0.4 ML (LOVENOX) SYR SC SCH (15:50)
[2021-03-01 16:00] VITALS: BP 156/83
[2021-03-01] MEDS: VANCOMYCIN 1,750 MG/NS 500 ML IVPB IV SCH ×2 (18:31)
[2021-03-01 20:00] VITALS: BP 167/96
[2021-03-01] MEDS: cloNIDine 0.1 MG (CATAPRES) TAB PO PRN (22:29)
[2021-03-02 00:12] VITALS: BP 137/80
[2021-03-02 03:50] VITALS: BP 132/74
[2021-03-02] MEDS: VANCOMYCIN 1,750 MG/NS 500 ML IVPB IV SCH ×2 (05:17)
[2021-03-02 05:49] LABS: BASOPHILS # (AUTO) 0.1 10^3/uL (0.0-0.1); BASOPHILS % (AUTO) 1 % (0-10); EOSINOPHILS # (AUTO) 0.4 10^3/uL (0.0-0.3); EOSINOPHILS % (AUTO) 3 % (0-10); HEMATOCRIT 34 % (35-52); LYMPHOCYTES # (AUTO) 5.3 10^3/uL (1.0-4.0); LYMPHOCYTES % (AUTO) 37 % (12-44); MEAN CORPUSCULAR HEMOGLOBIN 29 pg (25-34); MEAN CORPUSCULAR HGB CONC 33 g/dL (32-36); MEAN CORPUSCULAR VOLUME 89 fL (80-99); MEAN PLATELET VOLUME 9.7 fL (9.0-12.2); MONOCYTES # (AUTO) 0.9 10^3/uL (0.0-1.0); MONOCYTES % (AUTO) 6 % (0-12); NEUTROPHILS # (AUTO) 7.4 10^3/uL (1.8-7.8); NEUTROPHILS % (AUTO) 52 % (42-75); PLATELET COUNT 391 10^3/uL (130-400); WHITE BLOOD COUNT 14.2 10^3/uL (4.3-11.0)
[2021-03-02 06:06] LABS: ALBUMIN 2.9 GM/DL (3.2-4.5); POTASSIUM 3.6 MMOL/L (3.6-5.0)
[2021-03-02 06:07] LABS: CALCIUM 9.1 MG/DL (8.5-10.1)
[2021-03-02 06:09] LABS: TOTAL PROTEIN 6.6 GM/DL (6.4-8.2)
[2021-03-02 06:10] LABS: BILIRUBIN,TOTAL 0.2 MG/DL (0.1-1.0)
[2021-03-02 06:12] LABS: CREATININE SERUM 0.6 MG/DL (0.60-1.30)
[2021-03-02] MEDS: inSUlin ASPART (NovoLOG) 1 UNIT/0.01 ML (CHARGE PER UNIT) SC SCH ×4 (06:21→21:13)
[2021-03-02 07:32] VITALS: BP 155/90
[2021-03-02] MEDS: amLODIPine 5 MG (NORVASC) TAB PO SCH (09:08)
[2021-03-02] MEDS: SENNA W/DOCUSATE (SENOKOT S) TABLET PO SCH ×2 (09:08→21:55)
[2021-03-02] MEDS: PIPERACILLIN/TAZOBACTAM (BULK) 4.5 GM in NS (IVPB) 100 ML IV SCH (09:08)
[2021-03-02] MEDS: polyethylene glycoL POWDER 17 GM (MIRALAX) PACK PO SCH ×2 (09:09→21:55)
--- NOTE | 2021-03-02 09:24 | Progress Note - Surgery ---
PILAR MCCLENDON 03/02/21 0924: Subjective Date Seen by a Provider: Mar 02, 2021 Time Seen by a Provider: 09:17 Subjective/Events-last exam Pt had I&D of left foot abscess on 02/27. POD #3 She is doing well. no fever or chills. Foot wrap was last replaced on 03/01 at 1400. I did not observe the incision. Wrap did have some fluids on it. Review of Systems General: No Chills, No Night Sweats HEENT: No Head Aches, No Visual Changes Pulmonary: No Dyspnea, No Cough Cardiovascular: No: Chest Pain, Palpitations Gastrointestinal: No: Nausea, Vomiting, Abdominal Pain Genitourinary: No Dysuria, No Frequency Musculoskeletal: foot pain (Pt still has foot pain occasionally); No: back pain Neurological: No: Weakness, Numbness Focused Exam Lactate Level 02/27/21 15:25: Lactic Acid Level 1.23 Objective Exam Vital Signs Date Time Temp Pulse Resp B/P (MAP) Pulse Ox O2 Delivery O2 Flow Rate FiO2 03/02/21 07:32 35.9 61 18 155/90 (111) 91 Room Air 03/02/21 03:50 35.6 72 18 132/74 (93) 94 Room Air 03/02/21 00:12 36.4 73 20 137/80 (99) 95 Room Air 03/01/21 20:00 37.8 69 24 167/96 (119) 96 Room Air 03/01/21 20:00 Room Air 03/01/21 16:00 36.4 75 20 156/83 (107) 92 Room Air 03/01/21 12:30 37.8 76 22 100/57 (71) 93 Room Air I & O 03/02/21 07:00 Intake Total 1865 ml Output Total 2420 ml Balance -555 ml Capillary Refill : Less Than 3 Seconds General Appearance: No Apparent Distress, WD/WN, Chronically ill, Obese HEENT: PERRL/EOMI Neck: Full Range of Motion, Normal Inspection, Non Tender, Supple Respiratory: Chest Non Tender, Lungs Clear, Normal Breath Sounds, No Accessory Muscle Use, No Respiratory Distress Cardiovascular: Regular Rate, Rhythm, No Murmur Peripheral Pulses: 2+ Radial Pulses (R), 2+ Radial Pulses (L) Gastrointestinal: normal bowel sounds, non tender, soft Extremity: Normal Capillary Refill, Other (I did not observe the wound directly. The wrapping had some fluid on it from the wound.) Neurologic/Psychiatric: Alert, Oriented x3 Skin: Normal Color, Warm/Dry Lymphatic: No Adenopathy Results Lab Laboratory Tests 03/01/21 10:56: Glucometer 185H 03/01/21 16:46: Glucometer 128H 03/01/21 20:43: Glucometer 172H 03/02/21 05:34: White Blood Count 14.2H, Red Blood Count 3.79L, Hemoglobin 11.0L, Hematocrit 34L , Mean Corpuscular Volume 89, Mean Corpuscular Hemoglobin 29, Mean Corpuscular Hemoglobin Concent 33, Red Cell Distribution Width 13.9, Platelet Count 391, Mean Platelet Volume 9.7, Immature Granulocyte % (Auto) 2, Neutrophils (%) (Auto) 52, Lymphocytes (%) (Auto) 37, Monocytes (%) (Auto) 6, Eosinophils (%) ( Auto) 3, Basophils (%) (Auto) 1, Neutrophils # (Auto) 7.4, Lymphocytes # (Auto) 5.3H, Monocytes # (Auto) 0.9, Eosinophils # (Auto) 0.4H, Basophils # (Auto) 0.1, Immature Granulocyte # (Auto) 0.3H, Sodium Level 142, Potassium Level 3.6, Chloride Level 108H, Carbon Dioxide Level 22, Anion Gap 12, Blood Urea Nitrogen 7, Creatinine 0.60, Estimat Glomerular Filtration Rate 108, BUN/Creatinine Ratio 12, Glucose Level 122H, Calcium Level 9.1, Corrected Calcium 10.0, Total Bilirubin 0.2, Aspartate Amino Transf (AST/SGOT) 21, Alanine Aminotransferase (ALT/SGPT) 15, Alkaline Phosphatase 75, Total Protein 6.6, Albumin 2.9L Microbiology 02/27/21 Gram Stain - Final, Resulted 02/27/21 Surgical Culture - Preliminary, Resulted Staphylococcus aureus 02/27/21 Blood Culture - Preliminary, Resulted No growth Assessment/Plan Assessment/Plan Assessment/Plan s/p I&D left foot abscess. POD 3 wet to dry BID. cont abx. GANGA CAPPS DO 03/02/21 1232: Subjective Time Seen by a Provider: 10:20 Subjective/Events-last exam Pt seen and examined, still has moderate pain. When I asked she thinks foot looks same or slightly worse. Review of Systems General: No Chills, No Night Sweats Pulmonary: No Dyspnea, No Cough Cardiovascular: No: Chest Pain, Palpitations Gastrointestinal: No: Nausea, Vomiting Musculoskeletal: foot pain (Pt still has foot pain occasionally - left foot) Objective Exam General Appearance: No Apparent Distress, Obese Respiratory: Lungs Clear, Normal Breath Sounds, No Accessory Muscle Use, No Respiratory Distress Cardiovascular: Regular Rate, Rhythm, No Murmur Gastrointestinal: non tender, soft Extremity: Other (open incision, large area of erythema on medial aspect of left foot, whitish skin on edges (looks plus waterlogged). has an area slightly more proximal that may be necrotic and after bandage was taken off there was some purulent drainage. Edward lines around erythema; solid line around intense erythema and dashed line around hazy erythema) Skin: Rash (upper left thigh) Assessment/Plan Assessment/Plan Assessment/Plan Cellulitis/Abscess with ??necrosis of left foot Pt is on wrong ABX; will stop Zosyn and Vanc. Starting Clindamycin, pt is allergic to Sulfa. Will make pt npo after [place], she may need further debridement in OR tomorrow. Supervisory-Addendum Brief Verification & Attestation Participated in pt care: history, MDM, physical Personally performed: exam, history, MDM, supervision of care Care discussed with: Medical Student Procedures: n/a Verification and Attestation of Medical Student E/M Service A medical student performed and documented this service. I then reviewed and verified all information documented by the medical student and made modific ations to such information, when appropriate. I personally performed a physical exam, medical decision making and then discussed any differences between the notes and made revisions as necessary to create one note. Ganga Capps , 03/02/21 , 12:35 PILAR MCCLENDON Mar 02, 2021 09:24 GANGA CAPPS DO Mar 02, 2021 12:32
[2021-03-02] MEDS: HYDROmorphone 2 MG/ML VIAL (DILAUDID) IVP PRN (10:55)
--- NOTE | 2021-03-02 11:05 | Progress Note - Hospitalist ---
Subjective HPI/CC On Admission Date Seen by Provider: Mar 02, 2021 Time Seen by Provider: 11:00 Chief complaint: Left foot pain Subjective/Events-last exam Patient doing better Sleeping a lot Dressing changes maintained Focused Exam Lactate Level Objective Exam Vital Signs Vital Signs Date Time Temp Pulse Resp B/P (MAP) Pulse Ox O2 Delivery O2 Flow Rate FiO2 03/03/21 03:44 36.2 66 17 112/76 (88) 9 Room Air Capillary Refill : Less Than 3 Seconds General Appearance: No Apparent Distress, WD/WN, Chronically ill, Obese Results/Procedures Lab Patient resulted labs reviewed. Assessment/Plan Assessment and Plan Assess & Plan/Chief Complaint Assessment: Left foot abscess status post incision and drainage at the bedside Diabetes Meth use Hypertension Plan: IV antibiotics NANDA WALLACE DO Mar 02, 2021 11:05
[2021-03-02 12:00] VITALS: BP 119/69
[2021-03-02 16:00] VITALS: BP 136/85
[2021-03-02] MEDS: ENOXAPARIN 40 MG/0.4 ML (LOVENOX) SYR SC SCH (16:42)
[2021-03-02] MEDS: CLINDAMYCIN 150 MG (CLEOCIN) CAP PO SCH (16:47)
[2021-03-02 19:45] VITALS: BP 126/69
[2021-03-03] VITALS (14 sets, daily range): BP systolic 110–152; BP diastolic 65–97
[2021-03-03] MEDS: CLINDAMYCIN 150 MG (CLEOCIN) CAP PO SCH ×5 (00:41→23:19)
[2021-03-03] MEDS: HYDROmorphone 2 MG/ML VIAL (DILAUDID) IVP PRN ×4 (00:42→21:39)
[2021-03-03] MEDS: CALCIUM CARBONATE 500 MG (TUMS) TAB.CHEW PO PRN (01:20)
[2021-03-03] MEDS: inSUlin ASPART (NovoLOG) 1 UNIT/0.01 ML (CHARGE PER UNIT) SC SCH ×4 (06:11→20:23)
[2021-03-03 06:59] LABS: BASOPHILS # (AUTO) 0.1 10^3/uL (0.0-0.1); BASOPHILS % (AUTO) 1 % (0-10); EOSINOPHILS # (AUTO) 0.4 10^3/uL (0.0-0.3); EOSINOPHILS % (AUTO) 3 % (0-10); HEMATOCRIT 36 % (35-52); HEMOGLOBIN 11.5 g/dL (11.5-16.0); LYMPHOCYTES # (AUTO) 4.5 10^3/uL (1.0-4.0); LYMPHOCYTES % (AUTO) 38 % (12-44); MEAN CORPUSCULAR HEMOGLOBIN 29 pg (25-34); MEAN CORPUSCULAR HGB CONC 32 g/dL (32-36); MEAN CORPUSCULAR VOLUME 89 fL (80-99); MEAN PLATELET VOLUME 9.5 fL (9.0-12.2); MONOCYTES # (AUTO) 0.8 10^3/uL (0.0-1.0); MONOCYTES % (AUTO) 7 % (0-12); NEUTROPHILS # (AUTO) 5.7 10^3/uL (1.8-7.8); NEUTROPHILS % (AUTO) 48 % (42-75); PLATELET COUNT 428 10^3/uL (130-400); WHITE BLOOD COUNT 11.8 10^3/uL (4.3-11.0)
[2021-03-03 07:09] LABS: ALBUMIN 3.1 GM/DL (3.2-4.5); POTASSIUM 3.7 MMOL/L (3.6-5.0)
[2021-03-03 07:10] LABS: CALCIUM 9.5 MG/DL (8.5-10.1)
[2021-03-03 07:11] LABS: TOTAL PROTEIN 6.8 GM/DL (6.4-8.2)
[2021-03-03 07:13] LABS: BILIRUBIN,TOTAL 0.2 MG/DL (0.1-1.0)
[2021-03-03 07:15] LABS: CREATININE SERUM 0.6 MG/DL (0.60-1.30)
--- NOTE | 2021-03-03 08:35 | Progress Note - Surgery ---
PILAR MCCLENDON 03/03/21 0835: Subjective Date Seen by a Provider: Mar 03, 2021 Time Seen by a Provider: 07:58 Subjective/Events-last exam Patient had I&D of left foot abscess on 02/27. POD #4 She is still having occasional pain on her left foot. No fever or chills. Foot wrap was last replaced on 03/02 at 1130. Patient wanted me to wait to unwrap wound and look at it with Dr. Capps. Wrap did have some fluids on it. Has been NPO since midnight. Had last dose of Lovenox on 03/02 @ 1642. Pt also had some left shoulder pain last night. Said she has fibromyalgia. Review of Systems General: No Chills, No Night Sweats HEENT: Head Aches (Had a headache last night); No Visual Changes, No Eye Pain Pulmonary: No Dyspnea, No Cough Cardiovascular: No: Chest Pain, Palpitations Gastrointestinal: No: Nausea, Vomiting, Abdominal Pain, Diarrhea Genitourinary: No Dysuria, No Frequency Musculoskeletal: shoulder pain (Left shoulder pain from fibromyalgia), foot pain (Occasional pain- left foot) Neurological: No: Weakness, Numbness Objective Exam Vital Signs Date Time Temp Pulse Resp B/P (MAP) Pulse Ox O2 Delivery O2 Flow Rate FiO2 03/03/21 07:25 35.6 61 18 146/96 (113) 93 Room Air 03/03/21 06:38 36.2 60 93 21 03/03/21 06:34 93 Room Air 03/03/21 03:44 36.2 66 17 112/76 (88) 9 Room Air 03/03/21 00:18 36.2 67 18 131/78 (95) 93 Room Air 03/02/21 20:00 Room Air 03/02/21 19:45 35.9 75 18 126/69 (88) 92 Room Air 03/02/21 16:00 35.9 66 20 136/85 (102) 95 Room Air 03/02/21 12:00 37.1 67 18 119/69 (86) 95 Room Air 03/02/21 09:00 Room Air I & O 03/03/21 07:00 Intake Total 1220 ml Output Total 3010 ml Balance -1790 ml Capillary Refill : Less Than 3 Seconds General Appearance: No Apparent Distress, WD/WN, Chronically ill, Obese HEENT: PERRL/EOMI Neck: Full Range of Motion, Normal Inspection, Non Tender, Supple Respiratory: Chest Non Tender, Lungs Clear, Normal Breath Sounds, No Accessory Muscle Use, No Respiratory Distress Cardiovascular: Regular Rate, Rhythm, No Murmur Peripheral Pulses: 2+ Radial Pulses (R), 2+ Radial Pulses (L) Gastrointestinal: normal bowel sounds, non tender, soft Extremity: Other ((Patient wanted me to wait until I visited with Dr. Capps to look at wound) Appearance from yesterday: open incision, large area of erythema on medial aspect of left foot, whitish skin on edges (looks plus w aterlogged). has an area slightly more proximal that may be necrotic and after bandage was taken off there was some purulent drainage. Edward lines around erythema; solid line around intense erythema and dashed line around hazy erythema) Neurologic/Psychiatric: Alert, Oriented x3 Skin: Rash (upper left thigh) Lymphatic: No Adenopathy (Cervical and Supraclavicular) Results Lab Laboratory Tests 03/02/21 10:56: Glucometer 148H 03/02/21 15:21: Glucometer 166H 03/02/21 20:00: Glucometer 131H 03/03/21 05:44: Glucometer 114H 03/03/21 06:47: White Blood Count 11.8H, Red Blood Count 4.01, Hemoglobin 11.5, Hematocrit 36, Mean Corpuscular Volume 89, Mean Corpuscular Hemoglobin 29, Mean Corpuscular Hemoglobin Concent 32, Red Cell Distribution Width 13.6, Platelet Count 428H, M alfredo Platelet Volume 9.5, Immature Granulocyte % (Auto) 4, Neutrophils (%) (Auto) 48, Lymphocytes (%) (Auto) 38, Monocytes (%) (Auto) 7, Eosinophils (%) (Auto) 3, Basophils (%) (Auto) 1, Neutrophils # (Auto) 5.7, Lymphocytes # (Auto) 4.5H, Monocytes # (Auto) 0.8, Eosinophils # (Auto) 0.4H, Basophils # (Auto) 0.1, Immature Granulocyte # (Auto) 0.4H, Sodium Level 141, Potassium Level 3.7, Chloride Level 103, Carbon Dioxide Level 23, Anion Gap 15H, Blood Urea Nitrogen 9, Creatinine 0.60, Estimat Glomerular Filtration Rate 108, BUN/Creatinine Ratio 15, Glucose Level 131H, Calcium Level 9.5, Corrected Calcium 10.2H, Total Bilirubin 0.2, Aspartate Amino Transf (AST/SGOT) 20, Alanine Aminotransferase (ALT/SGPT) 11, Alkaline Phosphatase 75, Total Protein 6.8, Albumin 3.1L Microbiology 02/27/21 Gram Stain - Final, Complete 02/27/21 Surgical Culture - Final, Complete Staphylococcus aureus 02/27/21 Blood Culture - Preliminary, Resulted No growth Assessment/Plan Assessment/Plan Assessment/Plan Cellulitis/Abscess with ??necrosis of left foot Pt currently on Clindamycin. Allergy to sulfa. Has been NPO since [place]. Possible debridement in OR today. SPIKE CAPPS DO 03/03/21 1152: Subjective Time Seen by a Provider: 10:30 Subjective/Events-last exam Pt seen and examined, she thinks the foot pain is about the same. Review of Systems General: No Chills, No Night Sweats Pulmonary: No Dyspnea, No Cough Cardiovascular: No: Chest Pain, Palpitations Musculoskeletal: foot pain (Occasional pain- left foot) Objective Exam General Appearance: No Apparent Distress, Chronically ill, Obese HEENT: PERRL/EOMI Respiratory: Lungs Clear, Normal Breath Sounds, No Accessory Muscle Use, No Respiratory Distress Cardiovascular: Regular Rate, Rhythm, No Murmur Gastrointestinal: non tender, soft Extremity: Other (foot looks worse with necrosis extending up along medial a spect) Assessment/Plan Assessment/Plan Assessment/Plan Necrotic tissue on Left foot Plan to OR for incision and drainage with possible debridement and possible packing; will get consent. Pt is npo. All questions answered to her satisfaction. Supervisory-Addendum Brief Verification & Attestation Participated in pt care: history, MDM, physical Personally performed: exam, history, MDM, supervision of care Care discussed with: Medical Student Procedures: n/a Verification and Attestation of Medical Student E/M Service A medical student performed and documented this service. I then reviewed and verified all information documented by the medical student and made modifications to such information, when appropriate. I personally performed a physical exam, medical decision making and then discussed any differences between the notes and made revisions as necessary to create one note. Spike Capps , 03/03/21 , 11:51 PILAR MCCLENDON Mar 03, 2021 08:35 SPIKE CAPPS DO Mar 03, 2021 11:52
[2021-03-03] MEDS: polyethylene glycoL POWDER 17 GM (MIRALAX) PACK PO SCH ×2 (08:59→20:13)
[2021-03-03] MEDS: SENNA W/DOCUSATE (SENOKOT S) TABLET PO SCH ×2 (09:00→20:13)
[2021-03-03] MEDS: amLODIPine 5 MG (NORVASC) TAB PO SCH (09:00)
--- NOTE | 2021-03-03 10:50 | Progress Note - Hospitalist ---
Subjective HPI/CC On Admission Date Seen by Provider: Mar 03, 2021 Time Seen by Provider: 11:00 Chief complaint: Left foot pain Subjective/Events-last exam Patient doing well Pain is still an issue May require incision and drainage again today per Dr. Capps Review of Systems Musculoskeletal: foot pain Objective Exam Vital Signs Vital Signs Date Time Temp Pulse Resp B/P (MAP) Pulse Ox O2 Delivery O2 Flow Rate FiO2 03/03/21 16:36 36.0 74 20 148/76 (100) 98 Room Air 03/03/21 15:10 2 03/03/21 06:38 21 Capillary Refill : Less Than 3 Seconds General Appearance: No Apparent Distress, WD/WN, Chronically ill Respiratory: Lungs Clear, Normal Breath Sounds Cardiovascular: Regular Rate, Rhythm Neurologic/Psychiatric: Alert, Oriented x3, No Motor/Sensory Deficits, Normal Mood/Affect Results/Procedures Lab Laboratory Tests 03/03/21 06:47 Patient resulted labs reviewed. Assessment/Plan Assessment and Plan Assess & Plan/Chief Complaint Assessment: Left foot abscess status post incision and drainage at the bedside Diabetes Meth use Hypertension Plan: IV antibiotics 03/03/2021: Supportive care Incision and drainage per Dr. Capps? NANDA WALLACE DO Mar 03, 2021 10:50
[2021-03-03] MEDS ORDERED: VANCOMYCIN INJECTION 0.1 MG in NS (IVPB) 250 ML IV SCH (11:00)
[2021-03-03] MEDS ORDERED: VANCOMYCIN 1,750 MG/NS 500 ML IVPB IV SCH ×2 (11:00)
[2021-03-03] MEDS ORDERED: VANCOMYCIN 2000 MG/NS 500 ML IVPB IV NR ×2 (11:00)
[2021-03-03] MEDS ORDERED: LIDOCAINE/EPI 1%-1:100,000 (XYLOCAINE) 20ML ONE (13:57)
[2021-03-03] MEDS ORDERED: LIDOCAINE PF 2% 5 ML (XYLOCAINE) VIAL ONE (14:08)
[2021-03-03] MEDS ORDERED: ONDANSETRON 4 MG/2 ML (SDV) Z0FRAN ONE (14:08)
[2021-03-03] MEDS ORDERED: SEVOFLURANE (ULTANE) 15 ML INHAL SOLN ONE (14:08)
[2021-03-03] MEDS ORDERED: proPOfol 200 MG/20 ML (DIPRIVAN) VIAL IV ONE (14:08)
[2021-03-03] MEDS ORDERED: fentaNYL INJ 100 MCG/2 ML AMP ONE (14:08)
[2021-03-03] MEDS ORDERED: MIDAZOLAM 2 MG/2 ML (VERSED) VIAL ONE (14:08)
--- NOTE | 2021-03-03 14:42 | Progress Note-Post Operative ---
Post-Operative Progess Note Surgeon (s)/Optical Goods Drilling Machine Operator (s) Surgeon SPIKE KHAN DO [employer] Goods Drilling Machine Operator: JENNIFER Wynne Pre-Operative Diagnosis necrotic tissue Post-Operative Diagnosis same Procedure & Operative Findings Date of Procedure 03/03/21 Procedure Performed/Findings Incision and Drainage with debridement and packing Anesthesia Type LMA Estimated Blood Loss Estimated blood loss (mL): less than 10ml Specimens/Packing Specimens Removed necrotic tissue SPIKE KHAN DO Mar 03, 2021 14:42
[2021-03-03] MEDS: ENOXAPARIN 40 MG/0.4 ML (LOVENOX) SYR SC SCH (15:58)
--- NOTE | 2021-03-03 17:05 | OPERATIVE REPORT ---
DATE OF SERVICE: 03/03/2021 PREOPERATIVE DIAGNOSES: Left foot abscess, cellulitis with possible necrotic tissue. POSTOPERATIVE DIAGNOSIS: Left foot necrotic tissue, possibly necrotizing fasciitis. SURGEON: Ganga Capps DO DUTY OFFICER: Ab Jeramy MS3 ANESTHESIA: LMA. PROCEDURE: Incision and drainage with debridement and packing measured 9 cm long x 2 cm wide x about 4 mm deep. SPECIMEN: Necrotic tissue. BLOOD LOSS: Less than 10 mL. FLUIDS: Per anesthesia. POSTOPERATIVE CONDITION: Stable. INDICATION FOR PROCEDURE: The patient is a 45-year-old female who had an abscess and cellulitis on the left foot, opened and drained on the ; however, this continued to get worse, looked like there was more necrotic tissue and she was taken to the OR today. FINDINGS: The patient had necrotic tissue including muscle and some fascia as well as skin and subcutaneous fat. PROCEDURE NOTE: After informed consent was obtained, the patient was brought to the operating room, placed on the operating table in supine position. She was sterilely prepped and draped in normal fashion. A foot block was performed using a local lidocaine with epinephrine blocking in front of the malleoli on the lateral and medial side and then as well around the area of necrotic tissue. This was on the first toe down the medial aspect. I made the incision with a Bovie electrocautery and a #15 blade, opening up this tissue and got out some purulent tissue as well as some necrotic tissue, then started debriding all the necrotic tissue. This incision measured 9 cm long x about 2 cm wide and about 4 mm deep debriding off subcutaneous fat as well as some fascia and muscle. It went under the toe as well. After the necrotic tissue was debrided, there was good bleeding, appeared to give good tissue edges, did pulse irrigation with 3 liters of normal saline and then packed with half inch iodoform packing and then a Kerlix and a Coban dressing placed. The patient tolerated the procedure. Sponge, instrument and needle count correct at the end of the case. Job ID: [id number] DocumentID: [id number] Dictated Date: 03/03/2021 14:42:28 [employer] Internship Date: 03/03/2021 17:05:19 Dictated By: GANGA CAPPS DO MTDD
[2021-03-03] MEDS: VANCOMYCIN 1,750 MG/NS 500 ML IVPB IV SCH ×2 (23:19)
[2021-03-04] MEDS: CALCIUM CARBONATE 500 MG (TUMS) TAB.CHEW PO PRN ×3 (00:28→21:18)
[2021-03-04 04:13] VITALS: BP 113/81
[2021-03-04] MEDS: inSUlin ASPART (NovoLOG) 1 UNIT/0.01 ML (CHARGE PER UNIT) SC SCH ×5 (05:19→20:44)
[2021-03-04] MEDS: CLINDAMYCIN 150 MG (CLEOCIN) CAP PO SCH ×4 (05:54→23:40)
[2021-03-04 06:20] LABS: BASOPHILS # (AUTO) 0.1 10^3/uL (0.0-0.1); BASOPHILS % (AUTO) 1 % (0-10); EOSINOPHILS # (AUTO) 0.4 10^3/uL (0.0-0.3); EOSINOPHILS % (AUTO) 3 % (0-10); HEMATOCRIT 36 % (35-52); HEMOGLOBIN 11.4 g/dL (11.5-16.0); LYMPHOCYTES # (AUTO) 4.2 10^3/uL (1.0-4.0); LYMPHOCYTES % (AUTO) 34 % (12-44); MEAN CORPUSCULAR HEMOGLOBIN 29 pg (25-34); MEAN CORPUSCULAR HGB CONC 32 g/dL (32-36); MEAN CORPUSCULAR VOLUME 91 fL (80-99); MEAN PLATELET VOLUME 9.9 fL (9.0-12.2); MONOCYTES # (AUTO) 0.8 10^3/uL (0.0-1.0); MONOCYTES % (AUTO) 6 % (0-12); NEUTROPHILS # (AUTO) 6.5 10^3/uL (1.8-7.8); NEUTROPHILS % (AUTO) 53 % (42-75); PLATELET COUNT 457 10^3/uL (130-400); WHITE BLOOD COUNT 12.4 10^3/uL (4.3-11.0)
[2021-03-04 06:42] LABS: BILIRUBIN,TOTAL 0.2 MG/DL (0.1-1.0); CALCIUM 9.1 MG/DL (8.5-10.1); CREATININE SERUM 0.7 MG/DL (0.60-1.30); POTASSIUM 3.7 MMOL/L (3.6-5.0); TOTAL PROTEIN 6.6 GM/DL (6.4-8.2)
--- NOTE | 2021-03-04 07:09 | Progress Note - Surgery ---
NEERAJ HALEY MED STUDENT 03/04/21 0709: Subjective Date Seen by a Provider: Mar 04, 2021 Time Seen by a Provider: 06:35 Subjective/Events-last exam This is Miriam a 45 yo female on day 6 of her hospital stay after having incision with draining and debridement of cellulitis of her left foot. Pt has MRSA in the incision site and is on MRSA precautions. Pt was asleep upon entering the room but was calm, cooperative, and engaged during questioning. Her foot was wrapped in dasia bandages which appeared dry. She stated that the pain in her foot is improving each day and wants to discuss discharge with Dr. Khan. She is able to take a few steps and it using the restroom without assistance. Pt has declined to take stool softeners stating that she doesn't like them, last BM was 2 days ago. She is eating and drinking well. She is still experiencing new onset left shoulder pain that began yesterday. History or fibromyalgia, stating that it hurts to move in any direction and painful to the touch. Review of Systems Musculoskeletal: arm pain (left shoulder), foot pain (left- surgical site) Focused Exam Time of Focused Exam: 06:40 Respiratory: Chest Non Tender, Lungs Clear, Normal Breath Sounds, No Accessory Muscle Use, No Respiratory Distress Cardiovascular: Regular Rate, Rhythm, No Edema, No Gallop, No Murmur, Normal Peripheral Pulses Skin: normal color, warm/dry, other (unable to visualize incision site) Objective Exam Vital Signs Date Time Temp Pulse Resp B/P (MAP) Pulse Ox O2 Delivery O2 Flow Rate FiO2 03/04/21 04:13 37.0 69 17 113/81 (92) 93 Room Air 03/03/21 23:57 35.8 68 18 110/71 (84) 93 Room Air 03/03/21 20:17 Room Air 03/03/21 20:00 36.4 68 18 137/91 (106) 95 Room Air 03/03/21 16:36 36.0 74 20 148/76 (100) 98 Room Air 03/03/21 15:30 Room Air 03/03/21 15:30 36.2 16 112/65 (81) 92 Room Air 03/03/21 15:20 14 133/87 (102) 93 Room Air 03/03/21 15:15 Room Air 03/03/21 15:10 16 139/86 (103) 96 OxyMask 2 03/03/21 15:00 OxyMask 2 03/03/21 15:00 16 152/97 (115) 100 OxyMask 2 03/03/21 14:50 16 123/82 (96) 100 OxyMask 6 03/03/21 14:49 OxyMask 6 03/03/21 14:49 36.6 16 123/82 (96) 100 OxyMask 6 03/03/21 11:51 36.3 68 20 148/85 (106) 94 Room Air 03/03/21 08:00 Room Air 03/03/21 07:25 35.6 61 18 146/96 (113) 93 Room Air I & O 03/04/21 07:00 Intake Total 1760 ml Output Total 3750 ml Balance -1990 ml Capillary Refill : Less Than 3 SecondsLess Than 3 Seconds General Appearance: No Apparent Distress, WD/WN, Chronically ill, Obese HEENT: PERRL/EOMI Neck: Normal Inspection, Non Tender, Supple Respiratory: Chest Non Tender, Lungs Clear, Normal Breath Sounds, No Accessory Muscle Use, No Respiratory Distress Cardiovascular: Regular Rate, Rhythm, No Edema, No Gallop, No Murmur, Normal Peripheral Pulses Peripheral Pulses: 2+ Radial Pulses (R), 2+ Radial Pulses (L) Gastrointestinal: non tender, soft Extremity: No Calf Tenderness Neurologic/Psychiatric: Alert, Oriented x3, No Motor/Sensory Deficits, Normal Mood/Affect Skin: Normal Color, Warm/Dry Lymphatic: No Adenopathy (Cervical and Supraclavicular) Results Lab Laboratory Tests 03/03/21 11:50: Glucometer 116H 03/03/21 15:51: Glucometer 123H 03/03/21 20:21: Glucometer 146H 03/04/21 05:04: Glucometer 166H 03/04/21 05:25: White Blood Count 12.4H, Red Blood Count 3.92, Hemoglobin 11.4L, Hematocrit 36, Mean Corpuscular Volume 91, Mean Corpuscular Hemoglobin 29, Mean Corpuscular Hemoglobin Concent 32, Red Cell Distribution Width 13.9, Platelet Count 457H, Mean Platelet Volume 9.9, Immature Granulocyte % (Auto) 4, Neutrophils (%) (Auto) 53, Lymphocytes (%) (Auto) 34, Monocytes (%) (Auto) 6, Eosinophils (%) (Auto) 3, Basophils (%) (Auto) 1, Neutrophils # (Auto) 6.5, Lymphocytes # (Auto) 4.2H, Monocytes # (Auto) 0.8, Eosinophils # (Auto) 0.4H, Basophils # (Auto) 0.1, Immature Granulocyte # (Auto) 0.5H, Sodium Level 140, Potassium Level 3.7, Chloride Level 103, Carbon Dioxide Level 24, Anion Gap 13, Blood Urea Nitrogen 9, Creatinine 0.70, Estimat Glomerular Filtration Rate 90, BUN/Creatinine Ratio 13, Glucose Level 185H, Calcium Level 9.1, Corrected Calcium 9.9, Total Bilirubin 0.2, Aspartate Amino Transf (AST/SGOT) 27, Alanine Aminotransferase (ALT/SGPT) 19, Alkaline Phosphatase 65, Total Protein 6.6, Albumin 3.0L Microbiology 03/03/21 MRSA Screen - Final, Complete 02/27/21 Gram Stain - Final, Complete 02/27/21 Surgical Culture - Final, Complete Staphylococcus aureus 02/27/21 Blood Culture - Preliminary, Resulted No growth Assessment/Plan Assessment/Plan Assessment/Plan Assessment: post incision with drainage and debridement of necrotic tissue on left foot left shoulder pain fibromyalgia diabetes- glucose of 166 on 03/04 MRSA at incision site Plan: monitor shoulder pain encourage movement and ambulation continue diabetes management with aspart and detemir monitor blood sugars continue vancomycin and clindamycin MRSA precautions continue dilaudid and oxycodone for pain control DVT prophylaxis with lovenox encourage fiber intake or stool softener that she approves of discuss discharge plans with pt frequent dressing changes and wound observation SPIKE KHAN DO 03/04/21 1527: Subjective Time Seen by a Provider: 13:11 Subjective/Events-last exam Pt seen and examined, states no foot pain today and she is feeling much better. Used less pain meds last night Review of Systems General: No Chills Pulmonary: No Dyspnea, No Cough Cardiovascular: No: Chest Pain, Palpitations Musculoskeletal: arm pain (left shoulder), foot pain (left) Objective Exam General Appearance: No Apparent Distress, Obese Respiratory: Lungs Clear, Normal Breath Sounds, No Accessory Muscle Use, No Respiratory Distress Cardiovascular: Regular Rate, Rhythm, No Murmur Gastrointestinal: non tender, soft Extremity: Other (Left foot wrapped, no eyrthema outside bandage) Assessment/Plan Assessment/Plan Assessment/Plan S/P incision with drainage and debridement of necrotic tissue on left foot diabetes- glucose of 166 on 03/04 MRSA at incision site Plan: Will leave dressing in place and take down tomorrow, if no more necrotic tissue could possibly go home, continue ABX encourage movement and ambulation, monitor blood sugars, oral pain meds as needed. Supervisory-Addendum Brief Verification & Attestation Participated in pt care: history, MDM, physical Personally performed: exam, history, MDM, supervision of care Care discussed with: Medical Student Procedures: n/a Verification and Attestation of Medical Student E/M Service A medical student performed and documented this service. I then reviewed and verified all information documented by the medical student and made modifications to such information, when appropriate. I personally performed a physical exam, medical decision making and then discussed any differences between the notes and made revisions as necessary to create one note. Spike Khan , 03/04/21 , 15:27 NEERAJ HALEY MED STUDENT Mar 04, 2021 07:09 SPIKE KHAN DO Mar 04, 2021 15:27
[2021-03-04 08:00] VITALS: BP 121/73
[2021-03-04] MEDS: SENNA W/DOCUSATE (SENOKOT S) TABLET PO SCH ×2 (09:01→20:42)
[2021-03-04] MEDS: polyethylene glycoL POWDER 17 GM (MIRALAX) PACK PO SCH ×2 (09:01→20:42)
[2021-03-04] MEDS: amLODIPine 5 MG (NORVASC) TAB PO SCH (09:09)
--- NOTE | 2021-03-04 09:34 | Anesthesia-General Post-Op ---
General Patient Condition Mental Status/LOC: Same as Preop Cardiovascular: Satisfactory Nausea/Vomiting: Absent Respiratory: Satisfactory Pain: Controlled Complications: Absent Post Op Complications Complications None Follow Up Care/Instructions Patient Instructions None needed. Anesthesia/Patient Condition Patient Condition Patient is doing well, no complaints, stable vital signs, no apparent adverse anesthesia problems. No complications reported per nursing. [place] [facility] [place]: LALO Corona CRNA Mar 04, 2021 09:34
[2021-03-04] MEDS: VANCOMYCIN 1,750 MG/NS 500 ML IVPB IV SCH ×2 (11:21)
[2021-03-04 11:58] VITALS: BP 160/92
--- NOTE | 2021-03-04 12:28 | Progress Note ---
VICENTA TUBBS MD 03/04/21 1228: Subjective Subjective/Events-last exam Patient went for I&D on 03/03 and reports improvement in pain since that time. No acute events overnight. She is hoping to be more active moving around the next couple of days and is hopeful for discharge in the next few days. She denies CP, SOB, abdominal pain today. BM 2 days ago. Focused Exam Time of Focused Exam: 06:40 Objective Exam Last Set of Vital Signs Vital Signs Date Time Temp Pulse Resp B/P (MAP) Pulse Ox O2 Delivery O2 Flow Rate FiO2 03/04/21 11:58 35.5 90 18 160/92 (114) 94 Room Air 03/04/21 08:00 2.00 03/03/21 06:38 21 Capillary Refill : Less Than 3 SecondsLess Than 3 Seconds I&O Intake and Output 03/04/21 00:00 Intake Total 1360 ml Output Total 3150 ml Balance -1790 ml Intake Oral 840 ml IV Total 520 ml Output Urine Total 3150 ml General: Alert, Oriented X3 HEENT: Atraumatic Neck: Supple Lungs: Clear to Auscultation, Normal Air Movement Heart: Regular Rate, Normal S1, Normal S2, No Murmurs Abdomen: Normal Bowel Sounds Skin: Other (Left foot bandaged with no proximal erythema or edema) Neuro: Normal Gait, Normal Speech Results/Procedures Lab Laboratory Tests 03/03/21 15:51: Glucometer 123H 03/03/21 20:21: Glucometer 146H 03/04/21 05:04: Glucometer 166H 03/04/21 05:25: White Blood Count 12.4H, Red Blood Count 3.92, Hemoglobin 11.4L, Hematocrit 36, Mean Corpuscular Volume 91, Mean Corpuscular Hemoglobin 29, Mean Corpuscular Hemoglobin Concent 32, Red Cell Distribution Width 13.9, Platelet Count 457H, Mean Platelet Volume 9.9, Immature Granulocyte % (Auto) 4, Neutrophils (%) (Auto) 53, Lymphocytes (%) (Auto) 34, Monocytes (%) (Auto) 6, Eosinophils (%) (Auto) 3, Basophils (%) (Auto) 1, Neutrophils # (Auto) 6.5, Lymphocytes # (Auto) 4.2H, Monocytes # (Auto) 0.8, Eosinophils # (Auto) 0.4H, Basophils # (Auto) 0.1, Immature Granulocyte # (Auto) 0.5H, Sodium Level 140, Potassium Level 3.7, Chloride Level 103, Carbon Dioxide Level 24, Anion Gap 13, Blood Urea Nitrogen 9, Creatinine 0.70, Estimat Glomerular Filtration Rate 90, BUN/Creatinine Ratio 13, Glucose Level 185H, Calcium Level 9.1, Corrected Calcium 9.9, Total Bilirubin 0.2, Aspartate Amino Transf (AST/SGOT) 27, Alanine Aminotransferase (ALT/SGPT) 19, Alkaline Phosphatase 65, Total Protein 6.6, Albumin 3.0L 03/04/21 11:24: Glucometer 161H Microbiology 03/03/21 MRSA Screen - Final, Complete 02/27/21 Gram Stain - Final, Complete 02/27/21 Surgical Culture - Final, Complete Staphylococcus aureus 02/27/21 Blood Culture - Preliminary, Resulted No growth Assessment/Plan Assessment/Plan (1) Cellulitis of left foot Status: Acute Assessment & Plan: 65 year old F presenting with left foot cellulitis with abscess formation s/p I&D 02/27 and 03/03 in the OR with culture growing MRSA susceptible to clindamycin. Clinically improving currently on both vancomycin and clindamycin. -Will discuss discontinuation of vancomycin given susceptibilities, continuing clindamycin with EOT 03/08, 5 days after I&D -Wound care at discharge -Monitor for fever, worsening exam (2) Hypertension Status: Chronic Assessment & Plan: Hypertensive while admitted. -Continue amlodipine 5 mg -PRN clonidine, hydralazine for SBP >170 (3) Type 2 diabetes mellitus Status: Chronic Assessment & Plan: Hemoglobin A1c 8 on admission with glucose controlled on levemir 15 U nightly, SSI. -Continue current regimen (4) Methamphetamine use Status: Chronic Assessment & Plan: History of methamphetamine use. Will discuss further in outpatient setting. GLADIS SINGH MD 03/04/21 1505: Supervisory-Addendum Brief Supervisory Addendum I personally have seen and evaluated the patient and agree with documentation by PGY3 Marco A Tubbs MD. I agree with the documented assessment and plan. VICENTA TUBBS MD Mar 04, 2021 12:28 GLADIS SINGH MD Mar 04, 2021 15:05
[2021-03-04 16:00] VITALS: BP 141/73
[2021-03-04] MEDS: ENOXAPARIN 40 MG/0.4 ML (LOVENOX) SYR SC SCH (17:33)
[2021-03-04 20:00] VITALS: BP 134/74
[2021-03-04] MEDS: HYDROmorphone 2 MG/ML VIAL (DILAUDID) IVP PRN (21:18)
[2021-03-04] MEDS ORDERED: TROUGH ORDER-PHARMACY XX NR (22:00)
[2021-03-05] VITALS: BP 164/95
[2021-03-05] MEDS: ALPRAZolam 0.25 MG (XANAX) TAB PO PRN (00:20)
[2021-03-05 04:20] VITALS: BP 130/70
[2021-03-05] MEDS: CLINDAMYCIN 150 MG (CLEOCIN) CAP PO SCH ×2 (05:44→12:15)
[2021-03-05 06:02] LABS: HEMATOCRIT 38 % (35-52); HEMOGLOBIN 12.2 g/dL (11.5-16.0); MEAN CORPUSCULAR HEMOGLOBIN 29 pg (25-34); MEAN CORPUSCULAR HGB CONC 32 g/dL (32-36); MEAN CORPUSCULAR VOLUME 90 fL (80-99); MEAN PLATELET VOLUME 9.4 fL (9.0-12.2); PLATELET COUNT 451 10^3/uL (130-400); WHITE BLOOD COUNT 10.9 10^3/uL (4.3-11.0)
[2021-03-05 06:10] LABS: CALCIUM 9.9 MG/DL (8.5-10.1)
[2021-03-05 06:14] LABS: CREATININE SERUM 0.64 MG/DL (0.60-1.30)
[2021-03-05] MEDS: inSUlin ASPART (NovoLOG) 1 UNIT/0.01 ML (CHARGE PER UNIT) SC SCH ×2 (06:17→12:00)
[2021-03-05 08:00] VITALS: BP 133/78
--- NOTE | 2021-03-05 08:11 | Progress Note - Surgery ---
NEERAJ HLAEY MED STUDENT 03/05/21 0811: Subjective Date Seen by a Provider: Mar 05, 2021 Time Seen by a Provider: 07:00 Subjective/Events-last exam This is Miriam a 45 yo female that is on day 7 of her hospital stay with the chief compliant of cellulitis of the left foot. Surgery was consulted for incision with drainage and debridement. Pt was asleep upon entering the room. She was calm, cooperative, and engaged during questioning. Pt stated that late last night she hit her incision on the side table which caused significant pain. She describes becoming very anxious about reinjury to the point that nursing staff gave her Xanax. She requested pain medications during this time frame as well. Pain is now manageable but was still worried about not being able to go home today. She is eating and drinking well. Pt had a BM yesterday and denies issue with urination. She has kept her left foot elevated and the dasia bandages are dry and clean on exam. Minimal dried blood on the skin of the left heal visible. She continues to improve clinically. Pt is able to walk around room but avoids putting much weight on left foot to not hinder the healing process. Pt expressed concern for diabetes. She stated that she didn't have diabetes before coming to the hospital and is concerned with medication management after discha rge. Review of Systems Musculoskeletal: shoulder pain (left shoulder, continuing to get worse), foot pain (left foot, minimal pain during exam) Focused Exam Time of Focused Exam: 06:40 Respiratory: Chest Non Tender, Lungs Clear, Normal Breath Sounds, No Accessory Muscle Use, No Respiratory Distress Cardiovascular: Regular Rate, Rhythm, No Edema, No Gallop, No Murmur Skin: normal color, warm/dry, other (unable to visualize incision on left foot due to bandaging) Objective Exam Vital Signs Date Time Temp Pulse Resp B/P (MAP) Pulse Ox O2 Delivery O2 Flow Rate FiO2 03/05/21 06:46 92 Room Air 03/05/21 04:20 37.3 61 18 130/70 (90) 94 Room Air 03/05/21 00:00 36.2 85 17 164/95 (118) 96 Room Air 03/04/21 20:44 Room Air 03/04/21 20:00 36.9 70 22 134/74 (94) 96 Room Air 11/22/21 16:00 36.3 74 20 141/73 (95) 98 Room Air 03/04/21 11:58 35.5 90 18 160/92 (114) 94 Room Air 03/04/21 10:00 95 Room Air I & O 03/05/21 07:00 Intake Total 2287.5 ml Output Total 1800 ml Balance 487.5 ml Capillary Refill : Less Than 3 SecondsLess Than 3 Seconds General Appearance: No Apparent Distress, Anxious, Obese HEENT: PERRL/EOMI Neck: Normal Inspection, Non Tender, Supple Respiratory: Chest Non Tender, Lungs Clear, Normal Breath Sounds, No Accessory Muscle Use, No Respiratory Distress Cardiovascular: Regular Rate, Rhythm, No Edema, No Gallop, No Murmur Peripheral Pulses: 2+ Radial Pulses (R), 2+ Radial Pulses (L) Gastrointestinal: non tender, soft Extremity: No Calf Tenderness, Swelling (left forearm, blown IV overenight), Other (Left foot wrapped, no eyrthema outside bandage) Neurologic/Psychiatric: Alert, Oriented x3, No Motor/Sensory Deficits, Normal Mood/Affect Skin: Normal Color, Warm/Dry Lymphatic: No Adenopathy (Cervical and Supraclavicular) Results Lab Laboratory Tests 03/04/21 11:24: Glucometer 161H 03/04/21 17:09: Glucometer 189H 03/04/21 20:37: Glucometer 131H 03/05/21 05:35: White Blood Count 10.9, Red Blood Count 4.21, Hemoglobin 12.2, Hematocrit 38, Mean Corpuscular Volume 90, Mean Corpuscular Hemoglobin 29, Mean Corpuscular Hemoglobin Concent 32, Red Cell Distribution Width 13.6, Platelet Count 451H, Mean Platelet Volume 9.4, Sodium Level 141, Potassium Level 4.0, Chloride Level 101, Carbon Dioxide Level 26, Anion Gap 14, Blood Urea Nitrogen 8, Creatinine 0.64, Estimat Glomerular Filtration Rate 100, BUN/Creatinine Ratio 13, Glucose Level 139H, Calcium Level 9.9 Microbiology 03/03/21 MRSA Screen - Final, Complete 02/27/21 Gram Stain - Final, Complete 02/27/21 Surgical Culture - Final, Complete Staphylococcus aureus 02/27/21 Blood Culture - Final, Complete No growth Assessment/Plan Assessment/Plan Assessment/Plan Assessment: S/P incision with drainage and debridement of necrotic tissue on left foot, minimal pain diabetes- glucose of 139 on 03/05 MRSA at incision site Shoulder pain- causing significant discomfort left forearm swelling- blown IV Plan: Remove dressing and inspect incision site today, continue ABX encourage movement and ambulation, monitor blood sugars, oral pain meds as needed, possible discharge today. Consult childbirth educator SPIKE KHAN DO 03/05/21 1218: Subjective Time Seen by a Provider: 11:41 Subjective/Events-last exam Pt seen and examined, was having some minimal foot pain today. Otherwise tolerating diet. Review of Systems Pulmonary: No Dyspnea, No Cough Cardiovascular: No: Chest Pain, Palpitations Gastrointestinal: No: Nausea, Vomiting Musculoskeletal: shoulder pain (left shoulder, continuing to get worse), foot pain (left foot, minimal pain during exam) Objective Exam General Appearance: No Apparent Distress, Anxious, Obese Respiratory: Lungs Clear, Normal Breath Sounds, No Accessory Muscle Use, No Respiratory Distress Cardiovascular: Regular Rate, Rhythm, No Murmur Gastrointestinal: non tender, soft Extremity: Swelling (left forearm, blown IV overenight), Other (Left foot bandage taken down, no necrotic tissue seen, mild erythema surrounding open incision) Assessment/Plan Assessment/Plan Assessment/Plan Assessment: S/P incision with drainage and debridement of necrotic tissue on left foot, minimal pain diabetes- glucose of 139 on 03/05 MRSA at incision site Shoulder pain- causing significant discomfort left forearm swelling- blown IV Plan: Repack dressing and wrap; will set up home health to do daily dressing changes, continue ABX encourage movement and ambulation, monitor blood sugars, oral pain meds as needed, possible discharge today. Consult childbirth educator Supervisory-Addendum Brief Verification & Attestation Participated in pt care: history, MDM, physical Personally performed: exam, history, MDM, supervision of care Care discussed with: Medical Student Procedures: n/a Verification and Attestation of Medical Student E/M Service A medical student performed and documented this service. I then reviewed and verified all information documented by the medical student and made modifications to such information, when appropriate. I personally performed a physical exam, medical decision making and then discussed any differences between the notes and made revisions as necessary to create one note. Spike Khan , 03/05/21 , 12:18 NEERAJ HALEY MED STUDENT Mar 05, 2021 08:11 SPIKE KHAN DO Mar 05, 2021 12:18
[2021-03-05] MEDS ORDERED: toPIRamate 100 MG (TOPAMAX) TAB PO SCH (09:00)
[2021-03-05] MEDS ORDERED: GABAPENTIN 600 MG (NEURONTIN) TAB PO SCH (09:00)
[2021-03-05] MEDS ORDERED: GABAPENTIN 300 MG (NEURONTIN) CAP PO SCH (09:00)
[2021-03-05] MEDS: polyethylene glycoL POWDER 17 GM (MIRALAX) PACK PO SCH (09:54)
[2021-03-05] MEDS: SENNA W/DOCUSATE (SENOKOT S) TABLET PO SCH (09:54)
[2021-03-05] MEDS: amLODIPine 5 MG (NORVASC) TAB PO SCH (09:55)
[2021-03-05 11:59] VITALS: BP 184/74
[2021-03-05] MEDS ORDERED: AMLO-250 PO (12:02)
[2021-03-05] MEDS ORDERED: CLIN150C20 PO (12:02)
[2021-03-05] MEDS ORDERED: METF-397 PO (12:02)
--- NOTE | 2021-03-05 12:18 | Discharge Summary ---
VICENTA TUBBS MD 03/05/21 1217: Discharge Summary Hospital Course Problems Reviewed?: Yes Problems/Diagnosis: (1) Cellulitis of left foot Status: Acute Assessment & Plan: 65 year old F presenting with left foot cellulitis with abscess formation s/p I&D 02/27 and 03/03 in the OR with culture growing MRSA susceptible to clindamycin. She clinically improved on clindamycin and was disc harged to complete course of clindamycin 03/07 with home health wound care with wound to be packed with iodophor daily and wrapped with kerlix. (2) Hypertension Status: Chronic Assessment & Plan: Hypertensive while admitted. Continued on amlodipine 5 mg at discharge to follow up with PCP. (3) Type 2 diabetes mellitus Status: Chronic Assessment & Plan: Hemoglobin A1c 8 on admission with glucose controlled on levemir 15 U nightly, SSI while admitted. She was changed to metformin 500 mg BID prescribed at discharge to follow up with PCP. (4) Methamphetamine use Status: Chronic Assessment & Plan: History of methamphetamine use, to be discussed further in the outpatient setting. Hospital Course Date of Admission: Feb 27, 2021 at 16:24 Admission Diagnosis : Family Physician/Provider: Angus Carney Date of Discharge: 03/05/21 Discharge Diagnosis: [Left foot cellulitis] Hospital Course: 45 year old with history of HTN, newly diagnosed diabetes (A1c 8), methamph etamine use presented 02/27 for 5 days of left foot pain with exam consistent with cellulitis and leukocytosis. She underwent I&D and cultures revealed MRSA sensitive to clinda. Due to necrotic tissue, she had repeat I&D on 03/03, after which she improved. She was discharged 03/05 to complete clindamycin course 03/07 with home health wound care ordered with wound to be packed with iodophor daily and wrapped with kerlix. Other new medications at discharge include amlodipine 5 mg for blood pressure that was elevated while admitted and metformin 500 mg BID for newly diagnosed diabetes. Labs and Pending Lab Test: Laboratory Tests 03/04/21 17:09: Glucometer 189H 03/04/21 20:37: Glucometer 131H 03/05/21 05:35: White Blood Count 10.9, Red Blood Count 4.21, Hemoglobin 12.2, Hematocrit 38, Mean Corpuscular Volume 90, Mean Corpuscular Hemoglobin 29, Mean Corpuscular Hemoglobin Concent 32, Red Cell Distribution Width 13.6, Platelet Count 451H, Mean Platelet Volume 9.4, Sodium Level 141, Potassium Level 4.0, Chloride Level 101, Carbon Dioxide Level 26, Anion Gap 14, Blood Urea Nitrogen 8, Creatinine 0.64, Estimat Glomerular Filtration Rate 100, BUN/Creatinine Ratio 13, Glucose Level 139H, Calcium Level 9.9 03/05/21 11:22: Glucometer 174H Microbiology 03/03/21 MRSA Screen - Final, Complete 02/27/21 Gram Stain - Final, Complete 02/27/21 Surgical Culture - Final, Complete Staphylococcus aureus 02/27/21 Blood Culture - Final, Complete No growth Home Meds Active Metformin HCl 500 Mg Tablet 500 Mg PO BID 30 Days Amlodipine Besylate 5 Mg Tablet 5 Mg PO DAILY Clindamycin HCl 150 Mg Capsule 300 Mg PO TID 2 Days Reported Excedrin Migraine Caplet (Aspirin/Acetaminophen/Caffeine) 1 Each Tablet 2-3 Each PO Q6-8HR PRN Meclizine HCl 25 Mg Tablet 25 Mg PO BID PRN Duloxetine HCl 60 Mg Capsule.dr 120 Mg PO DAILY TAKES 2 (60MG) CAPS Topiramate 100 Mg Tablet 300 Mg PO DAILY TAKES 3 (100MG) TABS Gabapentin 600 Mg Tablet 1,800 Mg PO DAILY TAKES 3 (600MG) TABLETS Esomeprazole Magnesium 40 Mg Capsule.dr 40 Mg PO DAILY Tizanidine HCl 4 Mg Tablet 4-8 Mg PO DAILY TAKES 1 OR 2 (4MG) TABS Assessment/Pt DC Instructions Cellulitis/Abscess formation s/p I&D Diabetes Hypertension Wound care per general surgery recommendations Discharge Diet: ADA Diet Activity as Tolerated: Yes Consulations Consultations General Surgery Discharge Physical Examination Allergies: Coded Allergies: Sulfa (Sulfonamide Antibiotics) (Unverified Allergy, Unknown, 12/05/14) hydroxyzine (Unverified Adverse Reaction, Intermediate, 10/10/13) morphine (Unverified Adverse Reaction, Intermediate, 10/10/13) General Appearance: No Apparent Distress, WD/WN HEENT: Pharynx Normal Respiratory: Chest Non Tender, Lungs Clear, Normal Breath Sounds Cardiovascular: Regular Rate, Rhythm, No Edema, No Murmur Gastrointestinal: Normal Bowel Sounds, Non Tender, Soft Skin: Normal Color, Other (Left foot dressing in place without surrounding erythema or edema. ) SAMANTHA,GLADIS N MD 03/05/21 1535: Discharge Summary Discharge Physical Examination Allergies: Coded Allergies: Sulfa (Sulfonamide Antibiotics) (Unverified Allergy, Unknown, 12/05/14) hydroxyzine (Unverified Adverse Reaction, Intermediate, 10/10/13) morphine (Unverified Adverse Reaction, Intermediate, 10/10/13) Supervisory-Addendum Brief Supervisory Addendum I personally have seen and evaluated the patient. I agree with the documented assessment and plan by Marco A Tubbs MD, PGY3 VICENTA TUBBS MD Mar 05, 2021 12:17 GLADIS SINGH MD Mar 05, 2021 15:35
--- NOTE | 2021-03-05 12:20 | D/C HH Face to Face Order ---
VICENTA TUBBS MD 03/05/21 1206: D/C Face to Face Orders Reconcile Patient Problems Problems Reviewed?: Yes Instructions for Patient Via Steph[facility], Patient Instructions/FollowUp: Wound care per general surgery recommendations Physician to follow Patient: Angus Carney Discharge Diet for Home: ADA Diet Patient Problems: Left foot abscess formation s/p I&D Patient Data-Allergies,Ht & Wt Patient Allergies: Coded Allergies: Sulfa (Sulfonamide Antibiotics) (Unverified Allergy, Unknown, 12/05/14) hydroxyzine (Unverified Adverse Reaction, Intermediate, 10/10/13) morphine (Unverified Adverse Reaction, Intermediate, 10/10/13) Height (Feet): 5 Height (Inches): 5.00 Weight (Pounds): 220 Weight (Ounces): 0.0 Home Health Need/Face to Face Date of Face to Face: Mar 05, 2021 Clinical Findings: Pain with ambulation, Wound infection I have seen Pt [id number]: Yes Discharged To: Home Diagnosis/Conditions: Left foot cellulitis/Abscess Patient is Homebound due to: Pain w/ambulation Homebound Status Due to the above stated illness, injury or surgical procedure (medical condition or diagnosis) and associated clinical findings, the patient is homebound because of his/her inability to leave home except with aid of a supportive device and/or person AND leaving the home requires a considerable and taxing effort or is medically contraindicated. Pt req the following assistanc: Aid of another person Home Health Nursing Orders Home Health Services Order: Wound Care-Eval/Treat Home Health Infusion Therapy Line Start Date: Feb 27, 2021 Certify Stmt I certify that this patient is under my care and that I, a nurse practitioner or a physician; a under water assistant working with me, had a face to face encounter that - meets the physician face to face encounter requirements with this patient as dated. SPIKE CAPPS DO 03/05/21 1222: D/C Face to Face Orders Instructions for Patient Patient Instructions/FollowUp: Daily wound packing Physician to follow Patient: Dr. Capps Discharge Diet for Home: No Restrictions Home Health Need/Face to Face Date of Face to Face: Mar 05, 2021 Clinical Findings: Generalized weakness and fatigue, Non or partial weight bearing I have seen Pt [id number]: Yes Discharged To: Home Diagnosis/Conditions: Open wound on left foot, s/p debridement Patient is Homebound due to: Muscle weakness, Pain w/ambulation Pt req the following assistanc: Aid of another person Home Health Nursing Orders Home Health Services Order: Physical Therapy-Evaluate & Treat, Wound Care- Eval/Treat VICENTA TUBBS MD Mar 05, 2021 12:06 SPIKE CAPPS DO Mar 05, 2021 12:22
--- NOTE | 2021-03-05 12:21 | Discharge Inst-Surgical ---
Discharge Inst-Surgical Depart Medication/Instructions New, Converted or Re-Newed RX: Other (continue ABX and pain meds as needed) Patient Instructions Follow up Appt: Make appointment for 1 week. [phone] Instructions: May shower in 24 hours, no tub bath or soaking. Use incentive spirometer at home as directed. No Smoking Skin/Wound Care: May remove bandages in am. You need daily dressing changes, home health being set up. Symptoms to Report: Appetite Changes, Extremity Discoloration, Numbness/Tingling, Swelling Increased, Bleeding Excessive, Eyesight Changes, Pain Increased, Urine Color Change, Constipation(Persistent), Fever over 101 degree F, Pain/Pressure in chest, Urinating Difficulty, Cough Up/Vomit Blood, Heart Beat Irreg/Pounding, Pain/Pressure in jaw, Cramps in feet or legs, Lightheadedness, Pain/Pressure in shoulder, Diarrhea(Persistent), Memory Changes Suddenly, Questions/Concerns, Weight gain consecutive days, Dizziness/Fainting, Nausea/Vomiting, Shortness of Breath, Weight gain over 2 pounds If questions or concerns contact your physician Or seek help at emergency department. Activity Activity as Tolerated: Yes Activity Instructions: Avoid Stress to Incision Driving Instructions: No Driving/Refer to Dr. De La Fuente Discharge Diet: No Restrictions Diet After 24 Hours: Clear Liquid if Nauseous If Any Problems/Questions/Issu: Contact Your Physician, Go to Emergency Room Skin/Wound Care Infection Signs and Symptoms: Increased Redness, Foul Odor of Wound, Increased Drainage, Skin Itchy or Has a Rash, Increased Swelling, Temperature Above 101 F Wound Care Comment: If any tissue is seen, please alert the surgeon. Bathing Instructions: SPIKE Lea DO Mar 05, 2021 12:21
[2021-03-05] MEDS: HYDROmorphone 2 MG/ML VIAL (DILAUDID) IVP PRN (12:56)
[2021-03-05 15:35] VITALS: BP 184/74
--- NOTE | 2021-03-11 15:39 | Physician Query Clarification ---
PQ-Uncertain Diagnosis Admission/Discharge Admission Date: Feb 27, 2021 at 16:24 Discharge Date: Mar 05, 2021 at 16:30 Dr. Phipps, The medical record reflects the following clinical scenario: History/Risk Factors: Cellulitis lt great toe/foot, DM Clinical Findings: Lactic acid 1.23, WBC 20.5, Blood culture - E. coli, T 36.5, P87, R 22 Treatment: IV Vancomycin, IV Piperacillin Question: Is e coli sepsis a clinically valid diagnosis? Sepsis was documented in the H&P with no further documentation in the medical r ecord. Please document a response in Progress Note or Discharge Summary. 1. Yes, clinically valid, condition resolved. 2. No, condition ruled out. 3. Other, with explanation of clinical findings. 4. Undetermined, no explanation for clinical findings. PHYSICIAN RESPONSE Diagnosis clinically valid: No, conditon ruled out Please remember a lack of response to the above will prompt a phone page by CDI/Coding staff. In responding to this query, please exercise your independent professional judgment. The purpose of this communication is to more accurately reflect the c omplexity of your patients condition. The fact that a question is asked does not imply that any particular answer is desired or expected. Thank you for your timely response to this clarification. Requestors name: Len THIS PHYSICIAN QUERY FORM IS A PERMANENT PART OF THE MEDICAL RECORD LEN VELOZ Mar 11, 2021 15:38 GLADIS SINGH MD Mar 15, 2021 02:10
== END 2021-03-05 16:30 | disposition home health service (06) | DRG 580 ==
LOC: EDUNIT# 14:58 → ER 15:01 → 4TH 16:24
PROVIDERS: ADMIT Internal Medicine; ATTEND Family Medicine
PROC: 0J9R0ZZ Drainage of Left Foot Subcutaneous Tissue and Fascia, Open Approach (ICD-10-PCS; principal; 2021-02-27)
PROC: 0KBW0ZZ Excision of Left Foot Muscle, Open Approach (ICD-10-PCS; 2021-03-03)
DX: L03.032 Cellulitis of left toe (principal); I96 Gangrene, not elsewhere classified; E11.52 Type 2 diabetes mellitus with diabetic peripheral angiopathy with gangrene; B95.62 Methicillin resistant Staphylococcus aureus infection as the cause of diseases classified elsewhere; E11.40 Type 2 diabetes mellitus with diabetic neuropathy, unspecified; T80.89XA Other complications following infusion, transfusion and therapeutic injection, initial encounter; Z91.19 Patient's noncompliance with other medical treatment and regimen; M06.9 Rheumatoid arthritis, unspecified; M79.7 Fibromyalgia; M19.91 Primary osteoarthritis, unspecified site; K21.9 Gastro-esophageal reflux disease without esophagitis; E78.00 Pure hypercholesterolemia, unspecified; E66.9 Obesity, unspecified; Z68.36 Body mass index [BMI] 36.0-36.9, adult; M25.512 Pain in left shoulder; E11.65 Type 2 diabetes mellitus with hyperglycemia; F41.9 Anxiety disorder, unspecified; F32.A Depression, unspecified; F15.90 Other stimulant use, unspecified, uncomplicated; F17.210 Nicotine dependence, cigarettes, uncomplicated; F12.90 Cannabis use, unspecified, uncomplicated; Z79.82 Long term (current) use of aspirin; Z79.52 Long term (current) use of systemic steroids; Z88.5 Allergy status to narcotic agent; Z88.2 Allergy status to sulfonamides; Z79.899 Other long term (current) drug therapy; Z87.820 Personal history of traumatic brain injury; Z85.41 Personal history of malignant neoplasm of cervix uteri; Z83.3 Family history of diabetes mellitus; Z23 Encounter for immunization; H54.7 Unspecified visual loss
CPT/HCPCS: 36415; 71045; 73630; 80048; 80053; 80202; 82947; 83036; 83605; 84145; 85007; 85025; 85027; 85610; 85730; 87040; 87070; 87077; 87081; 87186; 87205; 88304; 94760; 96374; 96375; 96376

== ENCOUNTER 2021-05-25 03:56 | Emergency (ER) | payer MEDICARE ==
[~2021-05-25] VITALS: Ht 165.1 cm; Wt 101.2 kg
[~2021-05-25 03:56] MED LIST changes: +AMLO-250 PO; +ASPI-789 PO; +CLIN150C20 PO; +DULO60CA59 PO; +MECL-149 PO; +METF-397 PO; +TOPI100T11 PO
[2021-05-25] MEDS ORDERED: ONDANSETRON 4 MG/2 ML (SDV) Z0FRAN IVP ONE (04:30)
[2021-05-25] MEDS ORDERED: LACTATED RINGERS 1,000 ML IV ONE ×2 (04:30→07:00)
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
[2021-05-25 04:45] LABS: BILIRUBIN,URINE NEGATIVE (NEGATIVE); CLARITY,URINE SL CLOUDY; COLOR,URINE YELLOW; GLUCOSE, URINE (UA) 3+ (NEGATIVE); KETONES,URINE NEGATIVE (NEGATIVE); LEUKOCYTE ESTERASE ,URINE NEGATIVE (NEGATIVE); NITRITE,URINE POSITIVE (NEGATIVE); PROTEIN,URINE NEGATIVE (NEGATIVE)
[2021-05-25 04:48] LABS: BASOPHILS # (AUTO) 0.1 10^3/uL (0.0-0.1); BASOPHILS % (AUTO) 0 % (0-10); EOSINOPHILS # (AUTO) 0.3 10^3/uL (0.0-0.3); EOSINOPHILS % (AUTO) 1 % (0-10); HEMATOCRIT 40 % (35-52); HEMOGLOBIN 13.1 g/dL (11.5-16.0); LYMPHOCYTES # (AUTO) 5.1 10^3/uL (1.0-4.0); LYMPHOCYTES % (AUTO) 23 % (12-44); MEAN CORPUSCULAR HEMOGLOBIN 29 pg (25-34); MEAN CORPUSCULAR HGB CONC 33 g/dL (32-36); MEAN CORPUSCULAR VOLUME 88 fL (80-99); MONOCYTES # (AUTO) 1.3 10^3/uL (0.0-1.0); MONOCYTES % (AUTO) 6 % (0-12); NEUTROPHILS # (AUTO) 14.7 10^3/uL (1.8-7.8); NEUTROPHILS % (AUTO) 68 % (42-75); PLATELET COUNT 298 10^3/uL (130-400); WHITE BLOOD COUNT 21.6 10^3/uL (4.3-11.0)
[2021-05-25 04:58] LABS: CALCIUM 9.3 MG/DL (8.5-10.1)
[2021-05-25 04:59] LABS: TOTAL PROTEIN 7.7 GM/DL (6.4-8.2)
[2021-05-25 05:01] LABS: BILIRUBIN,TOTAL 0.2 MG/DL (0.1-1.0)
[2021-05-25 05:03] LABS: CREATININE SERUM 0.74 MG/DL (0.60-1.30)
[2021-05-25 05:04] LABS: BACTERIA,URINE LARGE /HPF
[2021-05-25 05:06] LABS: MAGNESIUM 1.8 MG/DL (1.6-2.4)
[2021-05-25 05:59] LABS: EOSINOPHILS % (MANUAL) 2 %; LYMPHOCYTES % (MANUAL) 24 %; MONOCYTES % (MANUAL) 4 %; NEUTROPHILS % (MANUAL) 70 %; RBC MORPH NORMAL
[2021-05-25] MEDS ORDERED: CEFEPIME INJECTION 2,000 MG in NS (IVPB) 50 ML IV ONE (06:45)
--- NOTE | 2021-05-25 07:05 | Diagnostic Imaging Report ---
Indication: Chest pain and cough after fall. Comparison: 02/27/2021. Discussion: Single portable upright view of the chest was obtained. Stable normal heart size. Epidural stimulator lead is noted. No consolidation, pleural fluid, or pneumothorax. No osseous abnormality. Impression: 1. Negative chest Dictated by: Dictated on workstation # [id number]
--- NOTE | 2021-05-25 07:05 | Diagnostic Imaging Report ---
Indication: Mid back pain after fall. Comparison: Chest x-ray same day. Discussion: Two views of the thoracic spine were obtained. No significant degenerative disease. Epidural stimulator lead is present. No fracture or subluxation. Alignment is anatomic. Soft tissues are unremarkable. Impression: 1. Negative thoracic spine. Dictated by: Dictated on workstation # [id number]
--- NOTE | 2021-05-25 07:17 | Diagnostic Imaging Report ---
CLINICAL INDICATION: Patient is status post fall with pain. EXAMS: 1: X-ray of the right shoulder including scapular Y view. 2: X-ray of the right ribs, 3 views. COMPARISON: Chest x-ray dated 12/06/2014. FINDINGS: Right shoulder shows no acute fracture or dislocation. There is no significant bone or joint abnormality. The right acromioclavicular region is within normal limits. Partially visualized neurostimulator electrode wires noted. There is no rib fracture. There are hypertrophic spurs involving the thoracic spine. Surgical clips are seen overlying the right upper quadrant which could be related to cholecystectomy changes.. Visualized chest and lung don show no significant abnormality. IMPRESSION: 1: X-ray of the right ribs and right shoulder show no acute fracture or dislocation. 2: There are hypertrophic spurs involving the thoracic spine. Dictated by: Dictated on workstation # [id number]
[2021-05-25 07:50] LABS: INR 0.9 (0.8-1.4); PROTHROMBIN TIME PATIENT 12.6 SEC (12.2-14.7)
[2021-05-25] MEDS ORDERED: CEFD300C3 PO (08:10)
[2021-05-25] MEDS ORDERED: ONDA4TAB11 PO (08:10)
[2021-05-25 08:22] VITALS: BP 156/94
== END 2021-05-25 08:22 | disposition home or self-care (01) ==
LOC: EDUNIT# 03:56 → ER 03:59
DX: R73.9 Hyperglycemia, unspecified (principal); M79.7 Fibromyalgia; G43.909 Migraine, unspecified, not intractable, without status migrainosus; G62.9 Polyneuropathy, unspecified; K21.9 Gastro-esophageal reflux disease without esophagitis; M06.9 Rheumatoid arthritis, unspecified; G89.29 Other chronic pain; M54.9 Dorsalgia, unspecified; F41.9 Anxiety disorder, unspecified; F32.A Depression, unspecified; E66.9 Obesity, unspecified; Z68.37 Body mass index [BMI] 37.0-37.9, adult; Z79.82 Long term (current) use of aspirin; Z79.899 Other long term (current) drug therapy
CPT/HCPCS: 36415; 71045; 71100; 72070; 73030; 80053; 81000; 82550; 82947; 83605; 83735; 85007; 85027; 85610; 85730; 86141; 87040; 87077; 87088; 87186; 87636

== ENCOUNTER 2021-11-06 11:44 | Emergency (ER) | payer MEDICARE ==
[~2021-11-06] VITALS: Ht 165 cm; Wt 95.0 kg
[~2021-11-06 11:44] MED LIST changes: -ASPI-789 PO; +ASPI1TAB23 PO; +CEFD300C3 PO; +ONDA4TAB11 PO
[2021-11-06 12:00] VITALS: BP 147/96
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
[2021-11-06] MEDS ORDERED: ONDANSETRON 4 MG (ZOFRAN) ORAL DISSOLVE TAB PO STA (12:34)
[2021-11-06] MEDS ORDERED: ONDA4TAB11 PO (12:54)
== END 2021-11-06 13:09 | disposition home or self-care (01) ==
LOC: EDUNIT# 11:44 → ER 11:46
DX: S06.0X0A Concussion without loss of consciousness, initial encounter (principal); S00.432A Contusion of left ear, initial encounter; S80.211A Abrasion, right knee, initial encounter; E11.9 Type 2 diabetes mellitus without complications; E66.9 Obesity, unspecified; Z68.34 Body mass index [BMI] 34.0-34.9, adult; Z28.310 Unvaccinated for COVID-19; Y04.8XXA Assault by other bodily force, initial encounter
CPT/HCPCS: 82947